=== PATIENT | male | born 1960 ===

== ENCOUNTER 2020-06-24 11:54 | Outpatient (REF) | payer MEDICARE, MEDICAID, SELFPAY ==
[2020-06-24 14:28] LABS: Anion Gap 12 (12-20); Blood Urea Nitrogen 14 mg/dL (9-16); Calcium 8.1 mg/dL (8.4-10.2); Carbon Dioxide 28 mmol/L (22-29); Chloride 103 mmol/L (96-108); Estimated Glomerular Filt Rate > 60; Glucose Random 81 mg/dL (60-115); Potassium 4.6 mmol/l (3.3-5.1); Sodium 138 mmol/L (135-145)
[2020-06-26 19:22] LABS: TS Negative Control Passed; TS Panel A 1; TS Panel B 0; TS Positive Control Passed; TSpotTB Negative (SeeBelow)
== END 2020-06-24 11:55 | disposition home or self-care (01) ==
LOC: HO.10HDL 11:54
PROVIDERS: Visit Provider Internal Medicine
DX: Z13.89 Encounter for screening for other disorder (principal)
CPT/HCPCS: 80048; 86481

== ENCOUNTER 2020-06-25 12:09 | Outpatient (REF) | payer MEDICARE, MEDICAID, SELFPAY ==
--- NOTE | 2020-06-25 15:07 | MHC.AU.P13 ---
Adult Audiological Evaluation Date of Visit: 06/25/20 Reason for Appointment: Audiological evaluation. Patient's sister provided case history and noted that Mr. Henao has not complained of hearing difficulties, but his family members have noticed he isn't hearing well. Does patient feel they have a hearing loss?: Yes If Yes, Which Ear?: Both Ears When Was Hearing Difficulty First Noticed?: Gradually over the past year Has hearing been tested previously?: No Ear History: Family History of Hearing Loss?: Yes Medical History: Medical History: Down Syndrome Medication List: Fluoxetine 20 mg 1x/day, Simvastatin 20 mg 1x/day, Clonazepam .5 mg 1x/day Otoscopy: Right Ear: Unremarkable Left Ear: Unremarkable Tympanometry: Right Ear: Normal Middle Ear System (Type A) Left Ear: Reduced Middle Ear Compliance (Type As) Hearing Evaluation: Transducer(s) Used: Insert Earphones, Bone Conduction Method: Conventional Audiometry Stimuli Used: Pure Tones Right Ear: Description of Hearing: Mild to moderately severe sensorineural hearing loss from 250-8000 Hz. Left Ear: Description of Hearing: Mild to moderately severe sensorineural hearing loss from 250-8000 Hz. Speech Recognition Threshold (SRT): Method Used: Monitored Live Voice Stimuli Used: Spondee Words Right Ear: 40 dBHL Left Ear: 40 dBHL Word Discrimination: Method: Recorded Lists Word Lists Used: PBK Right Ear: 96% at 80 dBHL Left Ear: 92% at 80 dBHL Recommendations: Recommendations: Audiological re-evaluation in one year. Trial with amplification is recommended. Medical clearance from a physician is required before fitting. Recommendations (Other): Spoke with Mr. Henao's sister on the phone during today's visit. Advised that Mr. Henao is a candidate for amplification. She expressed concerns for his ability to care for and learning to use the hearing aids. It was noted that Mr. Henao will likely be moving into a residential setting by the end of the year and will have more support there. We decided to hold off on pursuing hearing aids until Mr. Henao is settled in to his new living arrangements. That way, someone from the residential can come to the hearing aid fitting and be educated on proper care and use of the hearing aids with Mr. Henao. Earmold impressions were taken today and will be held until we are ready to proceed with hearing aids. My recommendation for hearing aids for Mr. Henao would be Joe Osiel ITE-R hearing aids bilaterally. These are rechargeable in-the-ear style hearing aids that would likely be easiest for Mr. Henao to use and care for. Hearing aids will be further discussed once Mr. Henao and his sister decide they are ready to proceed. Diagnosis: Primary Diagnosis: H90.3 Bilateral Sensorineural Hearing Loss Services Performed: Services Performed: Comprehensive Audiological Evaluation (CPT 48836) Tympanometry (CPT 22416) Signature: Provider: Annamarie Burger, CCC-A
--- NOTE | 2020-06-25 15:08 | MHC.AU.MED ---
Medical Clearance for Hearing Instrumentation Date: 06/25/20 Patient Name: Tristin Hneao Date of : 1960 Dear Torres Wheeler MD, We have seen your patient on 06/25/20 and have determined that they are a candidate for amplification (See accompanying report). Specifically, they would benefit from: Hearing aid use in both ears There is a statute that addresses Medical Evaluation Requirements prior to fitting a patient with a hearing aid. According to [place] statute 265 CMR:6.03(1), (a) General. Except as provided in 265 CMR 6.03(1)(b), a salesperson hearing aids shall not sell a hearing aid unless the prospective user has presented to the salesperson hearing aids a written statement signed by a licensed physician that states that the patient's hearing loss has been medically evaluated and the patient may be considered a candidate for a hearing aid. The medical evaluation must have taken place within the preceding six months. Please note: Due to the [place] Statute referenced above, we cannot accept a signature other than that of a licensed physician. GROUP INSURANCE SPECIAL AGENT and PA signatures cannot be accepted. I am in agreement with the above recommendation. There is no medical contraindication for hearing instrumentation. Physician Signature Date Physician Name (Printed)
== END 2020-06-25 12:10 | disposition home or self-care (01) ==
LOC: HO.SH 12:09
PROVIDERS: PCP Internal Medicine; Referring Provider Internal Medicine; Visit Provider Internal Medicine
DX: H90.3 Sensorineural hearing loss, bilateral (principal)
CPT/HCPCS: 92557; 92567

== ENCOUNTER 2020-09-29 13:01 | Outpatient (REF) | payer MEDICARE, MEDICAID, SELFPAY | END 2020-09-29 13:02 | disposition home or self-care (01) | LOC: HO.HAP 13:01 | PROVIDERS: Visit Provider Internal Medicine | DX: Z46.1 Encounter for fitting and adjustment of hearing aid (principal); H90.3 Sensorineural hearing loss, bilateral | CPT/HCPCS: V5011; V5020; V5160; V5260 ==

== ENCOUNTER 2020-10-13 09:35 | Outpatient (REF) | payer MEDICARE, MEDICAID, SELFPAY | END 2020-10-13 09:36 | disposition home or self-care (01) | LOC: HO.HAP 09:35 | PROVIDERS: Visit Provider Internal Medicine | DX: Z13.89 Encounter for screening for other disorder (principal) ==

== ENCOUNTER 2020-11-16 13:59 | Outpatient (REF) | payer MEDICARE, MEDICAID, SELFPAY | END 2020-11-16 14:00 | disposition home or self-care (01) | LOC: HO.HAP 13:59 | PROVIDERS: Visit Provider Internal Medicine | DX: Z13.89 Encounter for screening for other disorder (principal) ==

== ENCOUNTER 2020-12-01 09:09 | Outpatient (REF) | payer MEDICARE, MEDICAID, SELFPAY | END 2020-12-01 09:10 | disposition home or self-care (01) | LOC: HO.HAP 09:09 | PROVIDERS: Visit Provider Internal Medicine | DX: Z13.89 Encounter for screening for other disorder (principal) ==

== ENCOUNTER 2020-12-08 10:36 | Outpatient (REF) | payer MEDICARE, MEDICAID, SELFPAY ==
--- NOTE | 2020-12-08 10:51 | MHC.AU.P13 ---
Hearing Instrument Problem Date of Visit: 12/08/20 Right Ear: Chief Scientist: Joe Model: Osiel 1600 ITE-R Serial Number: [id number] Repair Warranty: 09/27/2023 Loss and Damage Warranty: 09/27/2023 Battery Size: Rechargeable Type of Wax Guard: HearClear Left Ear: Chief Scientist: Joe Model: Osiel 1600 ITE-R Serial Number: [id number] Repair Warranty: 09/27/2023 Loss and Damage Warranty: 09/27/2023 Battery Size: Rechargeable Type of Wax Guard: HearClear Follow-Up Summary: Right Joe dropped off - broken in half - sent to [facility], [place] for repair. Recommendations: Recommendations: Patient will be contacted when materials have arrived. Signature: Provider: TRIPP Arroyo
== END 2020-12-08 10:37 | disposition home or self-care (01) ==
LOC: HO.HAP 10:36
PROVIDERS: Visit Provider Internal Medicine
DX: Z13.89 Encounter for screening for other disorder (principal)

== ENCOUNTER 2020-12-14 15:42 | Outpatient (REF) | payer SELFPAY | END 2020-12-14 15:43 | disposition home or self-care (01) | LOC: HO.HAP 15:42 | PROVIDERS: Visit Provider Internal Medicine | DX: Z13.89 Encounter for screening for other disorder (principal) ==

== ENCOUNTER 2021-01-06 10:03 | Emergency (ER) | payer MEDICARE, MEDICAID, SELFPAY ==
--- NOTE | ~2021-01-06 | XR_ITS ---
EXAMINATION: RIGHT HAND AND WRIST CLINICAL INFORMATION: Fall with pain COMPARISON: None TECHNIQUE: 3 views of the right hand and wrist FINDINGS: There is a fracture seen base of the fifth metacarpal with approximately 1.5 cm of displacement of fracture fragments. There is small amount of soft tissue swelling present. There is some degenerative change involving the first carpal metacarpal joint with spurring. There appears be some deformity of the trapezium with narrowing of the triscaphe joint. There is negative ulnar variance present. XR/XR hand wrist RT IMPRESSION: Fracture base of the right fifth metacarpal. This may be acute or chronic and clinical correlation is suggested. Degenerative change of the first carpal metacarpal joint. Negative ulnar variance.
[2021-01-06 10:06] VITALS: BP 116/83; PULSE 77; RESP 16; TEMP 36.6; O2SAT 94; BMI 28.3
--- NOTE | 2021-01-06 10:12 | ED.FALL ---
HPI - Fall General Chief Complaint: Extremity Injury, Upper Stated Complaint: FALL OFF BUS STEP C/O R WRIST PAIN Time Seen by Provider: 01/06/21 10:10 Source: patient and EMS Mode of arrival: EMS Limitations: no limitations History of Present Illness HPI Narrative: 60-year-old female with a past medical history of Down syndrome here status post mechanical fall. Patient tells me he was going to his adult daycare when he missed a step getting off the bus falling catching himself with his right wrist. Denies hitting his head or loss of consciousness. Small abrasion to the wrist. No headache, neck pain, back pain. Related Data Home Medications Medication Instructions Recorded Confirmed clonazepam BEDTIME 01/06/21 fluoxetine 01/06/21 simvastatin DAILY 01/06/21 01/06/21 Allergies Allergy/AdvReac Type Severity Reaction Status Date / Time latex Allergy Unknown Verified 01/06/21 10:26 Review of Systems Review of Systems: Yes all other systems are reviewed and are negative Constitutional: Constitutional: Reports no additional constitutional complaints, Denies body ache(s), Denies chills, Denies fever(s), Denies headache(s) and Denies weakness Eyes: Eyes: Reports no additional eye complaints and Denies change in vision ENT: Reports system reviewed and no additional complaints, except as documented, Denies dizziness, Denies headache(s), Denies nasal congestion, Denies nasal discharge and Denies neck pain Cardiovascular: Cardiovascular: Reports no additional cardiovascular complaints, Denies chest pain, Denies leg edema and Denies dyspnea Respiratory: Respiratory: Reports no additional respiratory complaints, Denies cough and Denies dyspnea Gastrointestinal: Gastrointestinal: Reports no additional gastrointestinal complaints, Denies abdominal pain, Denies diarrhea, Denies nausea and Denies vomiting Genitourinary: Genitourinary: Denies urinary incontinence Musculoskeletal: Musculoskeletal: Reports no additional musculoskeletal complaints, Denies back pain, Reports arthralgias, Denies joint swelling, Denies limited range of motion, Denies neck pain, Denies numbness and Denies tingling Integumentary/Breasts: Skin/Breast: Reports system reviewed and no additional complaints, except as docu and Denies rash Neurologic: Reports system reviewed and no additional complaints, except as documented, Denies Abnormal speech present, Denies dizziness, Denies headache(s), Denies numbness, Denies tingling and Denies weakness PMF Past Medical History Attestation statement: The following information was validated with the patient. Source: old records reviewed and nursing notes reviewed Medical History (Updated 01/06/21 @ 11:01 by Ruddy Melchor NP) Down syndrome Social History Social History Alcohol intake: never Patient Tobacco Use Status: Never used Tobacco Use of substances other than those prescribed or required for medical reasons: No Advance Directives: Yes Advance Directives Information Provided: Yes Advance Directives on File: No Physical Exam Vital Signs: Vital Signs: Last Vital Signs Temp 97.8 F 01/06/21 10:06 Pulse 76 01/06/21 10:23 Resp 16 01/06/21 10:23 BP 126/82 01/06/21 10:23 Pulse Ox 98 01/06/21 10:23 Body Mass Index 28.3 Const: General: cooperative, healthy appearing, comfortable and no acute distress Orientation/consciousness: patient oriented x3 Limitations: no limitations HENMT: Head: Yes normal to inspection Ears: hearing grossly normal bilaterally General nose exam: Normal external nose present Face and sinus: Yes normal facial exam Mouth: Normal oral and palatal mucosa present Throat: Yes posterior oropharynx normal Eyes: General: appearance normal, both eyes and all related structures Pupils: Equal, round and reactive pupils present Neck: Neck: Yes normal visual inspection, Yes full ROM and Yes no lymphadenopathy Chest: Chest palpation & inspection: normal inspection of the chest Resp: Effort & Inspection: normal respiratory effort Auscultation: clear to auscultation bilaterally Cardio: Rate: regular rate Rhythm: regular rhythm Peripheral pulses: Peripheral pulses 2+ throughout GI: Inspection: Yes normal to inspection Palpation (GI): Soft to palpation and nontender Auscultation: normal bowel sounds Back/Spine/Pelvis: Thoracic/Lumbar Spine: thoracic and lumbar spine normal to inspection Skin: General skin exam: no rashes or lesions noted Neuro: General: patient oriented x3, no focal motor deficits, normal sensation to monofilament and Unable to assess gait Cranial nerves: Yes CN's II-XII intact bilaterally, Yes Equal, round and reactive pupils present, Yes Bilaterally intact EOM present, Yes Nystagmus not present, Yes Normal facial strength present and Yes Midline tongue present Cognition (Neuro): normal cognition Speech: No Abnormal speech present Gait exam (Neuro): Unable to assess gait Motor exam (neuro): 5 motor strength present throughout Sensory Exam: Normal double simultaneous stimulation for sensation Extrem: Other: Abrasion over the volar aspect of the right wrist. There is some mild tenderness over the distal wrist with no obvious swelling or deformity and full range of motion General: Yes normal to inspection Course Course Course Narrative: Abrasion and tenderness over the right wrist status post mechanical fall. No head injury or loss of consciousness. Normal neuro exam. Will need x-rays 1100-x-ray shows a right 5th metacarpal fracture. Placed and we placed an ulnar gutter splint and will follow up with Orthopedics. Staff was informed the longterm and they came to pick him up. Procedures Procedure Narrative Procedure Narrative: Ulnar gutter splint MDM - Fall Medical Records Attestation: I reviewed the patient's medical records. Lab Data Attestation: I reviewed the patient's lab results. Imaging Data right hand/wrist x-ray: Attestation: I personally reviewed and interpreted this imaging study as follows: Radiologist's impression: [address] [address]ALcc ReportSigned Patient: Michelle Henao#: [id number]: 1960cct:[id number]/Sex: 60 / MADM Date: 01/06/21Loc: EDAttending Dr: Ordering Physician: RUDDY MELCHOR NP Date of Service: 01/06/21 Procedure(s): XR hand wrist RT Accession Number(s): [id number] cc: RUDDY MELCHOR NP~ EXAMINATION: RIGHT HAND AND WRIST CLINICAL INFORMATION: Fall with pain COMPARISON: None TECHNIQUE: 3 views of the right hand and wrist FINDINGS: There is a fracture seen base of the fifth metacarpal with approximately 1.5 cm of displacement of fracture fragments. There is small amount of soft tissue swelling present. There is some degenerative change involving the first carpal metacarpal joint with spurring. There appears be some deformity of the trapezium with narrowing of the triscaphe joint. There is negative ulnar variance present. XR/XR hand wrist RT IMPRESSION: Fracture base of the right fifth metacarpal. This may be acute or chronic and clinical correlation is suggested. Degenerative change of the first carpal metacarpal joint. Negative ulnar variance. Discharge Plan Discharge Clinical Impression: Fracture, metacarpal Qualifiers: Encounter type: initial encounter Metacarpal bone: fifth Fracture type: closed Metacarpal location: base Fracture alignment: displaced Laterality: right Qualified Code(s): S62.316A - Displaced fracture of base of fifth metacarpal bone, right hand, initial encounter for closed fracture Patient Disposition: Home, Self-Care Instructions: Hand Fracture (ED) Additional Instructions: The splint stays on at all times. Do not let it get wet Do not use the hand, elevate and apply ice in a bag Call orthopedics for a follow-up appointment Prescriptions: No Action clonazepam BEDTIME RF: 0 fluoxetine RF: 0 simvastatin DAILY RF: 0 Referrals: Mj Khalil MD [Physician] - 2 days Interventions: ED Discharge Assessment Last Done: 01/06/21 12:43 Discharge Date/Time: 01/06/21 12:44
[2021-01-06 10:23] VITALS: BP 126/82; PULSE 76; RESP 16; O2SAT 98
--- NOTE | 2021-01-06 11:14 | MHC.CM.ED ---
Patient came to ER after a fall. Sustained a wrist fracture. T/W spoke with Mitchell at [facility]. Mitchell has an employee of the [facility] in the waiting room named Bola. Bola will transport patient home. Princess MULTANI aware. Continue to monitor for d/c needs.
== END 2021-01-06 12:44 | disposition home or self-care (01) ==
PROVIDERS: Emergency Provider Emergency Medicine
DX: S62.316A Displaced fracture of base of fifth metacarpal bone, right hand, initial encounter for closed fracture (principal); M79.641 Pain in right hand; W10.9XXA Fall (on) (from) unspecified stairs and steps, initial encounter; Y93.9 Activity, unspecified; Y92.811 Bus as the place of occurrence of the external cause; Y99.9 Unspecified external cause status; Z79.899 Other long term (current) drug therapy
CPT/HCPCS: 29125; 73110; 73130; 99284

== ENCOUNTER 2021-01-12 09:10 | Outpatient (REF) | payer MEDICARE, MEDICAID, SELFPAY ==
--- NOTE | ~2021-01-12 | XR_ITS ---
EXAMINATION: XR WRIST, RIGHT CLINICAL INFORMATION: Right wrist pain. COMPARISON: Right hand radiographs dated 01/06/2021 TECHNIQUE: PA, lateral, and oblique views of the right wrist. FINDINGS: Scaphoid rotation somewhat limits evaluation. No displaced fracture. Severe 1st carpometacarpal joint space narrowing with bony remodeling and marginal osteophytes. Mild triscaphe joint space narrowing. Remote fracture fragment adjacent to the base of the 5th metacarpal. 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 Rotation of the scaphoid limits evaluation. No definite displaced fracture. Remote, nonhealed fracture fragment at the base of the 5th metacarpal.
== END 2021-01-12 09:11 | disposition home or self-care (01) ==
LOC: HO.HOSX 09:10
PROVIDERS: Visit Provider Orthopaedic Surgery
DX: M18.11 Unilateral primary osteoarthritis of first carpometacarpal joint, right hand (principal); S62.316D Displaced fracture of base of fifth metacarpal bone, right hand, subsequent encounter for fracture with routine healing
CPT/HCPCS: 73110; 99202

== ENCOUNTER → 2021-03-30 11:09 | Outpatient (REF) | payer MEDICARE, MEDICAID, SELFPAY ==
[2021-03-30 12:23] LABS: MANUAL DIFF FLAG NO
[2021-03-30 12:28] LABS: Basophils Absolute Auto 0.1 X10*3/uL (0.0-0.2); Basophils Percent Auto 1.4 % (0-2); Eosinophils Percent Auto 0.6 % (0-4); Hematocrit 46.4 % (42-52); Hemoglobin 15.7 g/dl (14.0-18.0); Imm Gran Abs Auto 0.02 X10*3/uL (0.00-0.03); Imm Gran Pct Auto 0.4 % (0.0-0.4); Lymphocytes Absolute Auto 1.8 X10*3/uL (1.2-4.9); Lymphocytes Percent Auto 37.3 % (20-40); Mean Corpuscular HGB Conc 33.8 g/dl (31.0-36.0); Mean Corpuscular Hemoglobin 32.8 pg (27.0-33.0); Mean Corpuscular Volume 96.9 fL (80-98); Mean Platelet Volume 10.4 fL (9.4-12.4); Monocytes Absolute Auto 0.5 X10*3/uL (0.1-1.2); Monocytes Percent Auto 9.9 % (2-11); Neutrophils Absolute Auto 2.5 X10*3/uL (2.0-8.3); Neutrophils Percent Auto 50.4 % (45-73); Platelet Count 214 X10*3/uL (160-400); Red Blood Count 4.79 X10*6/uL (4.60-5.80); Red Cell Distribution Width 13.9 % (11.0-16.0); White Blood Count 4.9 X10*3/uL (4.8-10.8)
[2021-03-30 12:48] LABS: Glucose Urine UA NEG (NEG); Leukocyte Esterase Urine NEG (NEG); Nitrite Urine NEG (NEG); Specific Gravity - Urine 1.015 (1.005-1.025); Urine Blood NEG (NEG); Urine Ketones NEG (NEG); Urine Protein NEG (NEG-TRACE)
[2021-03-30 12:50] LABS: Appearance Urine CLEAR; Color Urine YELLOW
[2021-03-30 13:49] LABS: Alanine Aminotransferase 21 U/L (0-40); Albumin Level 3.6 g/dL (3.5-5.0); Alkaline Phosphatase 105 U/L (39-117); Anion Gap 13 (12-20); Aspartate Amino Transferase 22 U/L (5-37); Bilirubin Total 0.6 mg/dL (0.0-1.0); Blood Urea Nitrogen 16 mg/dL (9-16); Calcium 8.7 mg/dL (8.4-10.2); Carbon Dioxide 26 mmol/L (22-29); Chloride 105 mmol/L (96-108); Cholesterol 179 mg/dL; Estimated Glomerular Filt Rate > 60; Glucose Fasting 102 mg/dL (60-99); HDL Cholesterol 48 mg/dL; LDL Cholesterol Calculated 117 mg/dl; Potassium 4.4 mmol/L (3.3-5.1); Sodium 140 mmol/L (135-145); Total Protein 7.3 g/dL (6.5-8.0); Triglycerides 74 mg/dL
[2021-03-30 14:14] LABS: Prostate Specific Antigen 0.44 ng/mL (<0.05-4.0); Thyroid Stimulating Hormone 1.45 uIU/mL (0.32-4.0)
== END ==
LOC: HO.SL 11:09
PROVIDERS: PCP Internal Medicine; Visit Provider Internal Medicine
DX: E78.00 Pure hypercholesterolemia, unspecified (principal); R35.1 Nocturia; H91.90 Unspecified hearing loss, unspecified ear; Q90.9 Down syndrome, unspecified; R63.5 Abnormal weight gain; Z12.5 Encounter for screening for malignant neoplasm of prostate
CPT/HCPCS: 36415; 80053; 80061; 81003; 84153; 84443; 85025; 87086

== ENCOUNTER → 2021-06-01 09:57 | Outpatient (REF) | payer MEDICARE, MEDICAID, SELFPAY | LOC: HO.SL 09:57 | PROVIDERS: PCP Internal Medicine; Visit Provider Internal Medicine | DX: G47.33 Obstructive sleep apnea (adult) (pediatric) (principal); G47.419 Narcolepsy without cataplexy; R53.83 Other fatigue | CPT/HCPCS: 95806 ==

== ENCOUNTER → 2021-06-20 15:31 | Outpatient (BNVA) | payer MEDICARE, MEDICAID, SELFPAY | PROVIDERS: PCP Internal Medicine; Visit Provider Internal Medicine | DX: Q90.9 Down syndrome, unspecified (principal); G47.33 Obstructive sleep apnea (adult) (pediatric); E66.9 Obesity, unspecified; Z79.899 Other long term (current) drug therapy | CPT/HCPCS: 99202 ==

== ENCOUNTER 2021-06-29 11:31 | Outpatient (REF) | payer MEDICARE, MEDICAID, SELFPAY ==
--- NOTE | 2021-06-29 11:45 | MHC.AU.P13 ---
Hearing Instrument Problem Date of Visit: 06/29/21 Right Ear: Varnish Filterer: Wrightspeed Model: Osiel 1600 ITE-R Serial Number: [id number] Repair Warranty: 09/27/2023 Loss and Damage Warranty: 09/27/2023 Battery Size: Rechargeable Type of Wax Guard: HearClear Dispensed By: [facility] Date of Fittin09/29/2020 Left Ear: Varnish Filterer: Wrightspeed Model: Osiel 1600 ITE-R Serial Number: [id number] Repair Warranty: 09/27/2023 Loss and Damage Warranty: 09/27/2023 Battery Size: Rechargeable Type of Wax Guard: HearClear Dispensed By: [facility] Date of Fittin09/29/2020 Follow-Up Summary: Sales Attendant brought in hearing aids - not working. Hearing aids cleaned and wax guards replaced - now both amplifying clearly. Sales Attendant in process of schedule audiological re-evaluation. Recommendations: Recommendations: Hearing instrument follow-up or maintenance as needed. Diagnosis Code(s): Primary Diagnosis: H90.3 Bilateral Sensorineural Hearing Loss Signature: Provider:
== END 2021-06-29 11:32 | disposition home or self-care (01) ==
LOC: HO.HAP 11:31
PROVIDERS: Visit Provider Internal Medicine
DX: Z13.89 Encounter for screening for other disorder (principal)

== ENCOUNTER 2021-07-20 10:32 | Outpatient (REF) | payer MEDICARE, MEDICAID, SELFPAY ==
--- NOTE | 2021-07-20 16:26 | MHC.AU.AHA ---
Adult Audiological Evaluation Date of Visit: 07/20/21 Reason for Appointment: Audiological re-evaluation to monitor the status of Mr. Henao's hearing loss. He has a known bilateral, sensorineural hearing loss and uses hearing aids binaurally. He and his caregiver report that things have been going well with the hearing aids. Mr. Henao has not noticed any significant changes to his hearing. They deny any changes to his medical history. Previous Hearing Test Results: [facility] [place], 06/25/2020 - Mild to moderately-severe sensorineural hearing loss bilaterally Ear History: Family History of Hearing Loss?: Yes Medical History: Medical History: Down Syndrome Medical History: High cholesterol, bilateral foot deformity, bilateral cataracts, generalized anxiety, depression, arthritis Allergies: Latex Medication List: Simvastatin 20 mg daily, Fluoxetine 40 mg daily, acetaminophen 650 mg PRN, bacitracin PRN, loratadine 10 mg daily Hearing Instrument History- Right Ear: Lambskin Trimmer: Koibanx Model: The News Lens ITE-R Serial Number: [id number] Battery Size: Rechargeable Repair Warranty: 09/27/2023 Loss and Damage Warranty: 09/27/2023 Dispensed By: [facility] Date of Fittin09/29/2020 Hearing Instrument History- Left Ear: Lambskin Trimmer: Koibanx Model: Zinwave 1600 ITE-R Serial Number: [id number] Battery Size: Rechargeable Warranty: 09/27/2023 Loss and Damage Warranty: 09/27/2023 Dispensed By: [facility] Date of Fittin09/29/2020 Otoscopy: Right Ear: Unremarkable Left Ear: Unremarkable Tympanometry: Tympanometry performed due to: Right Ear: Could Not Obtain Seal Left Ear: Could Not Obtain Seal Hearing Evaluation: Transducer(s) Used: Insert Earphones, Bone Conduction Method: Conventional Audiometry Stimuli Used: Pure Tones Right Ear: Description of Hearing: Flat moderate sensorineural hearing loss from 250-8000 Hz. Left Ear: Description of Hearing: Flat moderate sensorineural hearing loss from 250-8000 Hz. Speech Recognition Threshold (SRT): Method Used: Monitored Live Voice Stimuli Used: Spondee Words Right Ear: 45 dBHL Left Ear: 45 dBHL Word Discrimination: Method: Recorded Lists Word Lists Used: PBK Right Ear: 88% at 85 dBHL Left Ear: 92% at 85 dBHL Comparison: Compared to most recent evaluation: Slight 10 dB decrease in hearing at 250 and 1000 Hz in the right ear and 500 Hz in the left ear. 10 dB improvement at 8000 Hz in the right ear. Recommendations: Audiological re-evaluation in one year. Hearing aid maintenance performed today. Hearing aid(s) reprogrammed with updated test results. Cracked the vent of the left aid while cleaning today. Sent the left aid out for an in-warranty repair. Will contact for pick-up when it arrives. Diagnosis: Primary Diagnosis: H90.3 Bilateral Sensorineural Hearing Loss Services Performed: Comprehensive Audiological Evaluation (CPT 44716) Signature: Provider: Annamarie Burger, CCC-A
== END 2021-07-20 10:33 | disposition home or self-care (01) ==
LOC: HO.SH 10:32
PROVIDERS: Visit Provider Internal Medicine
DX: Z46.1 Encounter for fitting and adjustment of hearing aid (principal); H90.3 Sensorineural hearing loss, bilateral; E78.00 Pure hypercholesterolemia, unspecified; Q90.9 Down syndrome, unspecified; M21.962 Unspecified acquired deformity of left lower leg; M21.961 Unspecified acquired deformity of right lower leg; H26.9 Unspecified cataract; F41.8 Other specified anxiety disorders
CPT/HCPCS: 92557

== ENCOUNTER 2021-08-03 11:27 | Outpatient (REF) | payer MEDICARE, MEDICAID, SELFPAY | END 2021-08-03 11:28 | disposition home or self-care (01) | LOC: HO.HAP 11:27 | PROVIDERS: Visit Provider Internal Medicine | DX: Z13.89 Encounter for screening for other disorder (principal) ==

== ENCOUNTER 2021-09-11 22:44 | Inpatient (IN) | payer MEDICARE, MEDICAID, SELFPAY ==
--- NOTE | ~2021-09-11 | XR_ITS ---
EXAMINATION: XR CHEST CLINICAL INFORMATION: Leukocytosis COMPARISON: Previous chest x-ray most recent 09/22/2019 TECHNIQUE: Frontal view of the chest was obtained. FINDINGS: The cardiac and mediastinal contours are normal. The lung volumes are low. There are increased interstitial markings, left greater than right. No evidence of a lobar pneumonia is seen. There is no pleural effusion or pneumothorax. There are degenerative changes of the thoracic spine and curvature to the right. XR/XR chest 1V IMPRESSION: Low lung volumes. Increased interstitial markings, left greater than right. Differential would include mild interstitial pulmonary edema and atypical interstitial pneumonia.
--- NOTE | ~2021-09-11 | XR_ITS ---
EXAMINATION: XR PELVIS WITH HIP, LEFT XR FEMUR, LEFT CLINICAL INFORMATION: Fall with pain COMPARISON: None TECHNIQUE: Frontal view of the pelvis with 2 views of the left hip. Additional view of the left femur. FINDINGS: There is a comminuted intertrochanteric left femur fracture. Varus angulation with impaction noted. Displaced lesser trochanteric fragment. The femoral head remains seated within its acetabulum. The right hip is well aligned. The pelvic rim is intact. Phleboliths overlie the pelvis. The remainder of the left femur is intact with alignment at the knee grossly maintained. XR/XR femur LT 1V IMPRESSION: Intertrochanteric left femur fracture with varus angulation and mild impaction.
--- NOTE | ~2021-09-11 | XR_ITS ---
EXAMINATION: XR PELVIS WITH HIP, LEFT XR FEMUR, LEFT CLINICAL INFORMATION: Fall with pain COMPARISON: None TECHNIQUE: Frontal view of the pelvis with 2 views of the left hip. Additional view of the left femur. FINDINGS: There is a comminuted intertrochanteric left femur fracture. Varus angulation with impaction noted. Displaced lesser trochanteric fragment. The femoral head remains seated within its acetabulum. The right hip is well aligned. The pelvic rim is intact. Phleboliths overlie the pelvis. The remainder of the left femur is intact with alignment at the knee grossly maintained. XR/XR hip LT w PEL1V IMPRESSION: Intertrochanteric left femur fracture with varus angulation and mild impaction.
--- NOTE | ~2021-09-11 | FL_ITS ---
EXAMINATION: XR FL WITH IMAGES CLINICAL INFORMATION: Left femoral nail. COMPARISON: Left femur radiographs 09/02/2021. TECHNIQUE: Fluoroscopy performed by Dr. Mj Khalil. Fluoroscopy Time: 0.9 minutes. DAP: 0.528 mGycm2. Images: 4. FINDINGS: Imaging demonstrates placement of a intramedullary safia and femoral neck screw on the left. See operative report for details. FL/FL guidance in OR IMPRESSION: Fluoroscopy and spot films provided.
--- NOTE | ~2021-09-11 | CT_ITS ---
EXAMINATION: NONCONTRAST HEAD CT NONCONTRAST MAXILLOFACIAL CT NONCONTRAST CERVICAL SPINE CT INDICATION INFORMATION: Fall with head injury. COMPARISON: None TECHNIQUE: Separate noncontrast CT examinations of the head, maxillofacial bones, and cervical spine were performed. Coronal and sagittal images were created for each examination at the technologist workstation. This CT examination was performed using dose optimization techniques as appropriate, variously including the following: *Automated exposure control *Adjustment of mA and/or kV according to patient size (this includes techniques or standardized protocols for targeted exams where dose is matched to indication/reason for exam; i.e. extremities or head) *Use of iterative reconstruction technique DLP: 1603 mGy-cm FINDINGS: Head: There is no evidence of acute intracranial hemorrhage or territorial infarction. No abnormal mass effect or midline shift is seen. Manzano to white matter differentiation is well preserved. No extra-axial fluid collections are identified. No hydrocephalus. No significant volume loss. Extensive symmetric calcifications of the basal ganglia and deep white matter. Cerebellar calcifications. No acute soft tissue abnormality. No calvarial fracture. The mastoid air cells are well aerated. Maxillofacial: No acute maxillofacial fractures are seen. The frontal, maxillary, ethmoid, and sphenoid sinuses are well aerated. The uncinate process is normal bilaterally. The infundibula and middle meati are patent. The nasal septum is midline. Chronic appearing degeneration of both temporomandibular joints with probable chronic erosion of the mandibular heads. The orbits demonstrate a normal appearance bilaterally. The globes are intact, and there are no suspicious findings to suggest retrobulbar hemorrhage. Cervical spine: Accentuated lordosis of the upper cervical spine. There is otherwise anatomic alignment of the vertebral bodies and posterior elements. The atlantoaxial and atlantooccipital articulations are intact. Vertebral body heights are maintained. There is multilevel intervertebral disc space narrowing with endplate osteophyte formation and facet arthropathy. Fusion of multiple vertebral bodies and facets throughout the cervical spine. Prominent sclerotic appearance of the endplates at C7-T1. No evidence of acute fracture. No prevertebral soft tissue swelling. Visualized portions of the lung apices are unremarkable. The thyroid gland is unremarkable. CT/CT cervical spine wo con IMPRESSION: 1. No acute intracranial finding. 2. No acute maxillofacial fracture. 3. No fracture or malalignment of the cervical spine. Advanced chronic changes with diffuse bony fusion.
--- NOTE | ~2021-09-11 | XR_ITS ---
EXAMINATION: XR CHEST CLINICAL INFORMATION: Aspiration. COMPARISON: Chest 09/12/2021 TECHNIQUE: Frontal view of the chest was obtained. FINDINGS: The lungs are well-expanded with increased bilateral parahilar vascular markings. Heart size is normal. No acute pneumonic consolidation or pleural effusion. No gross bony abnormality. XR/XR chest 1V IMPRESSION: Mild prominence bilateral parahilar vascular markings, ? early mild congestion or vascular overload. No acute pneumonic consolidation seen.
[2021-09-11 22:47] VITALS: BP 115/79; BP 118/76; PULSE 87; PULSE 90; RESP 16; TEMP 37.1; O2SAT 100; O2SAT 99; BMI 29.2
--- NOTE | 2021-09-11 22:53 | ED_ITS ---
HPI - Fall General Chief Complaint: Fall Stated Complaint: Mechanical Fall Time Seen by Provider: 09/11/21 22:53 Source: patient Mode of arrival: ambulatory Limitations: no limitations History of Present Illness HPI Narrative: Patient is a 61 year old male presenting to the emergency department today with an employee from his housing, after a mechanical fall. Patient's employee at bedside states that the patient got up, in the dark, to shut off his alarm clock when he tripped and fell striking his head on the ground. Staff member states the patient did not have any loss of consciousness. Staff member states the deformity to his bilateral feet, is chronic for the patient. Staff member states the patient is complaining of left leg pain. Patient denies any dizziness, lightheadedness, abdominal pain, nausea, vomiting, fever, chills, blurry vision, double vision, loss of vision, chest pain, difficulty breathing, shortness of breath, back pain, night sweats, pain with urination, increased urinary frequency, increased urinary urgency, blood in his urine or stool, syncope or a near syncopal episode, recent trauma or falls, bowel incontinence, bladder incontinence, bowel retention, bladder retention, or any other complaints at this time. MD complaint: fall Onset (ago): hour(s) Fall from: standing Fall witnessed: yes, by living facility staff Place fall occurred: home Loss of consciousness: none Prolonged down time: no Symptoms prior to fall: none Context: tripped/slipped Related Data Home Medications Medication Instructions Recorded Confirmed clonazepam BEDTIME 01/06/21 06/20/21 fluoxetine 01/06/21 06/20/21 simvastatin DAILY 01/06/21 06/20/21 Allergies Allergy/AdvReac Type Severity Reaction Status Date / Time latex Allergy Unknown Verified 06/20/21 15:42 Review of Systems Verdana 4l Constitutional: Verdana 4d Verdana 4d Constitutional: Verdana 4d Reports no additional constitutional complaints, Denies chills, Denies fever(s) and Denies night sweats Verdana 4l Eyes: Verdana 4d Verdana 4d Eyes: Verdana 4d Reports no additional eye complaints, Denies blurry vision, Denies change in vision, Denies diplopia, Denies eye discharge, Denies loss of vision and Denies eye pain Verdana 4l ENT: Verdana 4d Denies dizziness Verdana 4l Cardiovascular: Verdana 4d Verdana 4d Cardiovascular: Verdana 4d Reports no additional cardiovascular complaints, Denies chest pain, Denies lightheadedness, Denies Loss of Consciousness and Denies dyspnea Verdana 4l Respiratory: Verdana 4d Verdana 4d Respiratory: Verdana 4d Reports no additional respiratory complaints and Denies dyspnea Verdana 4l Gastrointestinal: Verdana 4d Verdana 4d Gastrointestinal: Verdana 4d Reports no additional gastrointestinal complaints, Denies abdominal pain, Denies melena, Denies hematochezia, Denies change in bowel habits and Denies change in stool character Verdana 4l Genitourinary: Verdana 4d Verdana 4d Genitourinary: Verdana 4d Reports no additional male genitourinary complaints, Denies hematuria, Denies oliguria, Denies difficulty urinating, Denies dysuria, Denies urinary frequency, Denies urinary hesitancy, Denies urinary incontinenceincontinence and Denies urinary urgency Musculoskeletal: Musculoskeletal: Reports no additional musculoskeletal complaints, Denies numbness and Denies tingling Comments: Left leg pain Integumentary/Breasts: Comments: Small laceration to the left eyebrow Neurologic: Denies dizziness, Denies loss of vision, Denies numbness and Denies tingling Psychiatric: Psychiatric: Reports no additional psychiatric complaints Endocrine: Endocrine: Reports no additional endocrine complaints Hematologic/Lymphatic: Hematologic/Lymphatic: Reports no additional hematologic/lymphatic complaints Allergic/Immunologic: Allergic/Immunologic: Reports no additional allergic/immunologic complaints PMFSH Past Medical History Attestation statement: The following information was validated with the patient. 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 Physical Exam Verdana 4l Vital Signs: Verdana 4d Verdana 4d Vital Signs: Verdana 4d Verdana 4Bd Last Vital Signs Verdana 4d Application Packaging Specialist New 4d Application Packaging Specialist New 4d Temp 98.7 F 09/11/21 22:47 Application Packaging Specialist New 4d Pulse 87 09/11/21 22:47 Application Packaging Specialist New 4d Resp 16 09/11/21 22:47 BP 118/76 09/11/21 22:47 Pulse Ox 100 09/11/21 22:47 BMI result Body Mass Index 29.2 Const: General: cooperative, no acute distress, alert and awake Nutritional Appearance: well nourished Orientation/consciousness: patient oriented x3 Limitations: no limitations HENMT: Head: Yes normal to inspection and Yes atraumatic Ears: hearing grossly normal bilaterally and external ears normal General nose exam: Normal external nose present, no nasal discharge noted and no epistaxis Face and sinus: Yes normal facial exam, No abrasion and No laceration Mouth: Normal oral and palatal mucosa present, no drooling and no muffled voice Eyes: General: appearance normal, both eyes and all related structures Periorbital: periorbital findings normal Eyelids: Yes eyelids normal Conjunctivae: conjunctivae normal Pupils: Equal, round and reactive pupils present EOM: EOMs intact bilaterally Neck: Neck: Yes normal visual inspection, Yes full ROM and Yes no lymphadenopathy Chest: Chest palpation & inspection: normal inspection of the chest Resp: Effort & Inspection: normal respiratory effort and able to speak in complete sentences GI: Inspection: Yes normal to inspection Skin: Other: Small laceration to left eyebrow, no active bleeding Neuro: General: patient oriented x3 and moves all extremities Cranial nerves: Yes Equal, round and reactive pupils present Cognition (Neuro): normal cognition Motor exam (neuro): 5/5 motor strength present throughout Sensory Exam: Normal double simultaneous stimulation for sensation Coordination: [id number] test normal Extrem: Other: Bilateral deformity of the feet, chronic for the patient General: Yes normal to inspection, Yes full ROM and Yes capillary refill normal Psych: Appearance: grossly normal Mental Status: mental status grossly normal Affect: normal affect Attitude: cooperative Thought process: Normal thought process present Thought content: Normal thought content present Insight: Good insight present (Psych) MDM - Fall MDM Narrative Medical decision making narrative: Patient is a 61 year old male presenting to the emergency department today after mechanical fall. Patient's physical exam showed a small laceration to his left eyebrow, and chronic deformities of bilateral feet. Patient's head, neck, and maxillofacial CTs were all negative for any acute process. Patient's left femur x-ray showed a significant fracture of the femur. I explained my physical exam findings as well as all test results to the patient and the patient's caregiver. I answered all questions asked by the patient and the patient's caregiver. Patient received p.o. Tylenol which he stated helped his symptoms significantly. Patient's left eyebrow laceration was repaired, via Dermabond, without incident. I spoke to Dr. Mcdaniels, the orthopedist healthcare consultant, who stated that they would likely be able to admit the patient here, however, she requested the patient be kept comfortable here in the ED until the morning when she can round with Dr. Khalil. Patient is to be kept NPO tonight. Patient and the patient's caregiver verbalized agreement and understanding with this treatment plan and admission. Differential Diagnosis Differential diagnosis: Likely fracture, compression fracture and concussion without loss of consciousness Medical Records Attestation: I reviewed the patient's medical records. Imaging Data CT scan - head: Attestation: I personally reviewed and interpreted this imaging study as follows: Radiologist's impression: Negative for any acute intracranial finding CT C-spine: Attestation: I personally reviewed and interpreted this imaging study as follows: Radiologist's impression: Negative for any acute fracture CT maxillofacial: Attestation: I personally reviewed and interpreted this imaging study as follows: Radiologist's impression: Negative for any acute fracture Left femur x-ray: Attestation: I personally reviewed and interpreted this imaging study as follows: Radiologist's impression: Intertrochanteric left femur fracture with varus angulation and mild impaction.? Discharge Plan Discharge Clinical Impression: Closed femur fracture, Fall Patient Disposition: Still a Patient Prescriptions: No Action clonazepam BEDTIME 0RF fluoxetine 0RF simvastatin DAILY 0RF Print Language: [place] Verdean
[2021-09-12] VITALS (12 sets, daily range): BP systolic 77–135; BP diastolic 48–79; PULSE 81–110; RESP 12–16; TEMP 36.9–37.1; O2SAT 93–100
--- NOTE | 2021-09-12 | ECG_ITS ---
Test Reason : FEMUR FRACTURES Blood Pressure : / mmHG Vent. Rate : 095 BPM Atrial Rate : 095 BPM P-R Int : 156 ms QRS Dur : 128 ms QT Int : 402 ms P-R-T Axes : 027 -25 020 degrees QTc Int : 505 ms Normal sinus rhythm Right bundle branch block Minimal voltage criteria for LVH, may be normal variant ( R in aVL ) Abnormal ECG No previous ECGs available Referred By: Jaspreet Monteiro Electronically Signed By:DANIEL PETE
[2021-09-12] MEDS: Acetaminophen 325 MG TABLET 1000 MG PO (01:06)
[2021-09-12 02:16] LABS: MANUAL DIFF FLAG NO
[2021-09-12] MEDS: ondansetron HCL 4 MG/2 ML VIAL IVPUSH (02:16)
[2021-09-12] MEDS: Morphine Sulfate 4 MG/ML CARTRIDGE IVPUSH ×3 (02:16→07:58)
[2021-09-12 02:19] LABS: Basophils Absolute Auto 0.1 X10*3/uL (0.0-0.2); Basophils Percent Auto 0.4 % (0-2); Hematocrit 43.5 % (42.0-52.0); Imm Gran Abs Auto 0.06 X10*3/uL (0.00-0.03); Imm Gran Pct Auto 0.4 % (0.0-0.4); Lymphocytes Absolute Auto 1.4 X10*3/uL (1.2-4.9); Lymphocytes Percent Auto 9.5 % (20-40); Mean Corpuscular HGB Conc 34.5 g/dl (31.0-36.0); Mean Corpuscular Volume 95.8 fL (80.0-98.0); Mean Platelet Volume 10.4 fL (9.4-12.4); Monocytes Absolute Auto 0.7 X10*3/uL (0.1-1.2); Monocytes Percent Auto 4.6 % (2-11); Neutrophils Absolute Auto 12.1 x10*3/uL (2.0-8.3); Neutrophils Percent Auto 85.1 % (45-73); Platelet Count 192 X10*3/uL (160-400); Red Blood Count 4.54 X10*6/uL (4.60-5.80); Red Cell Distribution Width 14.1 % (11.0-16.0); White Blood Count 14.2 X10*3/uL (4.8-10.8)
[2021-09-12 02:28] LABS: INTERNATIONAL NORM RATIO 1.1 (0.9-1.1); Prothrombin Time 12.5 SEC (9.9-13.0)
[2021-09-12 02:30] LABS: Partial Thromboplastin Time 32.4 SEC (24.1-38.0)
[2021-09-12 02:35] LABS: Alanine Aminotransferase 23 U/L (0-40); Albumin Level 3.4 g/dL (3.5-5.0); Alkaline Phosphatase 88 U/L (39-117); Anion Gap 17 (12-20); Aspartate Amino Transferase 27 U/L (5-37); Bilirubin Total 0.8 mg/dL (0.0-1.0); Blood Urea Nitrogen 20 mg/dL (9-16); Calcium 8.4 mg/dL (8.4-10.2); Carbon Dioxide 22 mmol/L (22-29); Chloride 105 mmol/L (96-108); Creatinine Clr Calc Pharmacy 66.9; Estimated Glomerular Filt Rate > 60; Glucose Fasting 143 mg/dL (60-99); Potassium 3.6 mmol/L (3.3-5.1); Sodium 140 mmol/L (135-145); Total Protein 6.6 g/dL (6.5-8.0)
[2021-09-12 02:38] LABS: COVID-19 Test Negative (Negative); IDNOW Serial# 9DD0AD1C
--- NOTE | 2021-09-12 03:25 | PC.NURSE ---
pt exchange trouble shooter to hospital attire, Iv placed, labs drawn and sent. Covid test completed. Medicated pt Oct. Pugh placed. CMS and pedal pulse to left lower extremity by doppler. Area maryuri for future assessments.
[2021-09-12 03:31] LABS: Appearance Urine CLEAR; Color Urine YELLOW; Glucose Urine UA NEG (NEG); Leukocyte Esterase Urine NEG (NEG); Nitrite Urine NEG (NEG); Specific Gravity - Urine >= 1.030 (1.005-1.025); Urine Blood 3+ (NEG); Urine Ketones 40 MG/DL (NEG); Urine Protein 1+ MG/DL (NEG-TRACE)
[2021-09-12 03:43] LABS: Bacteria Urine 2+ /LPF; Mucus Urine 2+ /LPF; RBC Urine 30-49 /HPF (0); Squamous Epithelial Cell Urine 1+ /LPF
[2021-09-12] MEDS: Dextrose 5 % and Lactated Ring 1,000 ML 125 ML IVCONT (07:59)
--- NOTE | 2021-09-12 08:26 | PHA.MEDREC ---
Pharmacy Consult ? Medication Reconciliation Pharmacy has completed the medication reconciliation. Spoke to patients skilled nursing to confirm medications. Patient is no longer on fluoxetine or clonazepam. Enriqueta Faith, PharmD
--- NOTE | 2021-09-12 09:32 | P.HPOP_ITS ---
History of Present Illness History of Present Illness Date of Service: 09/12/21 Chief complaint: LEFT HIP FX Narrative: Tristin Henao is a 61 year old male who presented to the emergency department after sustaining fall. He lives in a custodial. Patient has Down syndrome and mental capacity is about the level of the 2nd to 3rd grader. His brother Elio is present in the emergency department. He states that to his understanding the patient was getting out of bed to shut off his alarm when he fell. He had immediate pain in the left side which made it difficult for him to get up and ambulate therefore EMS was called and he was transferred to the emergency department. 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 On examination in the emergency department x-rays showed a left intertrochanteric fracture of the femur. Orthopedics was called and the patient was admitted to the service for further surgical planning. 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 Meds Allergies Allergy/AdvReac Type Severity Reaction Status Date / Time latex Allergy Unknown Verified 06/20/21 15:42 Active Medications: Current Medications Acetaminophen (Acetaminophen 325 Mg Tablet) 650 mg PO Q6H PRN PRN Reason: Pain, Mild (Pain Scale 1-3) Docusate Sodium (Docusate Sodium 100 Mg Capsule) 100 mg PO BID SALLY Dextrose/Lactated Ringer's (D5lr) 1,000 mls @ 125 mls/hr IVCONT .Q8H SALLY Last Admin: 09/12/21 07:59 Dose: 125 mls/hr Documented by: Ondansetron HCl (Ondansetron Hcl 4 Mg/2 Ml Vial) 4 mg IVPUSH Q8H PRN PRN Reason: Nausea and Vomiting Oxycodone HCl (Oxycodone Hcl Immed Release 5 Mg Tablet) 5 mg PO Q4H PRN PRN Reason: Pain, Moderate (Pain Scale 4-6 Pharmacy Consult (Consult Rx Perform Med Rec) 1 each MISCELLANE ONCE PRN PRN Reason: Consult order Sodium Chloride (0.9 % Sodium Chloride Flush 3 Ml Syringe) 3 ml IVFLUSH QSHIFT [facility] Home Medications Medication Instructions Recorded Confirmed Last Taken Type acetaminophen 325 650 mg PO Q6H 09/12/21 09/12/21 Unknown History mg tablet PRN loratadine 10 mg 1 tab PO DAILY 09/12/21 09/12/21 09/11/21 History tablet simvastatin 20 mg 1 tab PO BEDTIME 09/12/21 09/12/21 09/11/21 History tablet Physical Exam Verdana 4l Vital Signs: Verdana 4d Verdana 4d Vital Signs: Verdana 4d Verdana 4Bd Last Vital Signs Verdana 4d Service Counter Cashier New 4d Service Counter Cashier New 4d Temp 98.7 F 09/12/21 05:35 Service Counter Cashier New 4d Pulse 91 09/12/21 09:06 Service Counter Cashier New 4d Resp 14 09/12/21 09:06 BP 77/51 L 09/12/21 09:06 Pulse Ox 95 09/12/21 09:06 BMI result Body Mass Index 29.2 Const: General: cooperative, healthy appearing, comfortable, no acute distress, well developed and alert Orientation/consciousness: patient oriented x3 HENMT: Head: Yes normal to inspection, Yes normocephalic and Yes atraumatic Eyes: General: appearance normal, both eyes and all related structures Neck: Neck: Yes normal visual inspection and Yes no lymphadenopathy Resp: Effort & Inspection: normal respiratory effort and able to speak in complete sentences Cardio: Rate: regular rate Peripheral pulses: Peripheral pulses 2+ throughout GI: Inspection: Yes normal to inspection Palpation (GI): Soft to palpation Skin: General skin exam: no rashes or lesions noted Neuro: General: patient oriented x3 Extrem: Other: Left leg short and ER. Pain with Log roll, Unable to SLR. Bilat fee at clubbed with deformity along the ankle joint. NVI. Psych: Appearance: grossly normal Mental Status: mental status grossly normal Results Labs Result Diagrams: 09/12/21 02:09 09/12/21 02:09 Labs: Abnormal lab results 09/12/21 09/12/2122 Range/Units 02:09 02:09 03:25 WBC 14.2 H (4.8-10.8) X10*3/uL RBC 4.54 L (4.60-5.80) X10*6/uL Neut % (Auto) 85.1 H (45-73) % Lymph % (Auto) 9.5 L (20-40) % Abs Immat Gran (auto) 0.06 H (0.00-0.03) X10*3/uL Absolute Neuts (auto) 12.1 H (2.0-8.3) x10*3/uL BUN 20 H (9-16) mg/dL Fasting Glucose 143 H D (60-99) mg/dL Albumin 3.4 L (3.5-5.0) g/dL Ur Specific [place] >= 1.030 H (1.005-1.025) Urine Protein 1+ H (NEG-TRACE) MG/DL Urine Blood 3+ H (NEG) Urine RBC 30-49 H (0) /HPF H & H 09/12/21 Range/Units 02:09 Hgb 15.0 (14.0-18.0) g/dl Hct 43.5 (42.0-52.0) % Coagulation 09/12/21 Range/Units 02:09 INR 1.1 (0.9-1.1) All other labs normal. Assessment and Plan (1) Closed femur fracture: Status: Acute Plan I discussed the case with Dr Khalil and explained the extent of the injury to the patient and his brother, Elio and options available which include surgical intervention. I explained the procedure in detail along with the length of recovery and rehab course. I explained the risk, benefits and alternatives. Risk including, but not limited to infection, blood clots, bleeding, non union or malunion and nerve/tissue damage to surrounding areas. I answered all their questions and with their understanding they have consented to move forward with Operative Fixation of the left hip. The patient will be T&S, med clearance obtained and NPO after midnight. Patient is a rodas of the Brothjeaneth [id number] [facility] ph number: [phone] [facility] office [address] [place] [address] Quality Stroke Does the patient have a stroke diagnosis?: No VTE Prior VTE?: No VTE Risk Level:: Surgical - very high VTE Device Contraindication: N/A - Device Ordered VTE Drug Contraindication: Treatment Not Indicated Procedures Date of Service Date of Service: 09/12/21
--- NOTE | 2021-09-12 10:56 | MHC.CM.PN ---
Addendum entered by Shirlene Graham 09/12/21 11:10: COVID VACCINE CARD COPIED AND SCANNED INTO [facility] Addendum entered by Shirlene Graham 09/12/21 11:02: PTS BROTHER REPORTS AFTER THEIR MOTHER , HE AND HIS SISTERS TRIED TO KEEP THE PT IN THE HOME HOWEVER THEY WERE UNABLE TO PROVIDE 24/7 CARE THEREFORE PT MOVED TO A [facility] CARE HOME. PER THE CARE HOME STAFF MEMBER IN THE PTS ROOM, LOLY, THE HOME HAS STAFF MEMBERS THERE 05/03 AND NURSES WHO OVERSEE CARE. SHE REPORTS THE PT WEARS SPECIAL BOOTS TO ASSIST IN HIS AMBULATION BUT DOES NOT USE A CANE OR WALKER. SHE REPORTS HE REQUIRES CLOSE SUPERVISION WHEN COMPLETING HIS ADL'S ESPECIALLY SHOWERING HE IS VERY UNSTEADY. PT AND FAMILY ARE AWARE PT WILL LIKELY NEED STR AT DC. AT THIS TIME NO ONE HAS INDICATED A PREFERRED FACILITY, HOWEVER IT WILL BE DISCUSSED FURTHER WITH FAMILY AND STAFF ADMINISTRATION. IMM WAS DELIVERED AND SIGNED BY PTS BROTHER. ORIGINAL WAS AT BEDSIDE AND COPY SENT TO [facility] CURRENT DC PLAN IS EXPECTED TO BE STR VIA BLS TRANSPORT Original Note: CM MET [facility] PT TO DISCUSS COMPLETION OF A HCP PT FOUND TO BE ALERT AND ORIENTED X 4 CM EXPLAINED THE PURPOSE OF A HCP PT INDICATED UNDERSTANDING PT STATED HE TRUSTED HIS BROTHER AND TWO SISTERS WHEN ASKED WHICH TWO HE WOULD WANT TO CHOOSE HIS AGENTS, PT REPORTED HIS BROTHER, CALIN, AND SISTER, IZABELA. AFTER FURTHER DISCUSSION WHICH INCLUDED HIS BROTHER, PT CHOSE TO PUT IZABELA PRIMARY SHE APPEARS TO BE MORE CLOSELY INVOLVED IN HIS CARE. HCP COMPLETED, SIGNED BY PATIENT, AND WITNESSED. COPIES WERE GIVEN TO PT, BROTHER, CARE HOME STAFF MEMBER AND SCANNED INTO [facility].
--- NOTE | 2021-09-12 11:49 | P.CONHOSP_ITS ---
History of Present Illness Data of Consult Service Date: 09/12/21 Requesting physician: Jaspreet Monteiro Primary Care Provider: Unknown Physician HPI Reason for consult: Mechanical fall/ left intertrochanteric fracture 61-year-old gentleman with past medical history of Down syndrome [facility] history of obstructive sleep apnea , has not been started on CPAP, brought into [facility] since patient got up in the dark to shut of his alarm clock when he tripped and fell to the striking his head to the ground, as per staff there was no loss of consciousness, patient denied any symptoms of lightheadedness, no dizziness, no chest pain, no nausea vomiting, no fevers, soon after fall patient complained of left leg pain and was unable to get up therefore brought to emergency room, in the ED, patient underwent extensive imaging studies including CT head, CT face, femur x-ray cervical spine CT and hip and pelvis x-ray, all imaging studies came back negative with no ac [place] intracranial findings, no acute maxillofacial fractures, except with showed intertrochanteric left femur fracture with varus angulation and mild impaction, labs showed elevated WBC count of 14.2 potassium 3.6 blood sugar 143 patient admitted to orthopedic surgeon and medical consult obtained for preop clearance, present patient awake alert complaining of left hip pain , patient tolerated breakfast, answere yes to all questions, spring encaser at bedside, informed that patient ambulates short distances at baseline, she is not aware of patient's baseline blood pressures, he tolerates ground solids and thin liquids and he says yes to most of the questions. Review of Systems Verdana 4l Review of Systems: Verdana 4d Verdana 4d General no headache, no dizziness, no fever chills. CVS no chest pain, no palpitation. Respiratory no cough, no sob Gastrointestinal no nausea no vomiting, no abdominal pain no urgency, no burning Verdana 4d Yes all other systemssystems are reviewed and are negative [facility] Medical History Down syndrome Down syndrome Obesity (BMI 30.0-34.9) CONY (obstructive sleep apnea) Social History Household Members: Caregiver and Other Household Members Other:: alf Housing: Other Housing Other:: alf Do you presently have visiting nurse or other home services: Yes Alcohol intake: never Patient Tobacco Use Status: Never used Tobacco service: No Current occupational status: disabled 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 Meds Allergies Allergy/AdvReac Type Severity Reaction Status Date / Time latex Allergy Unknown Verified 06/20/21 15:42 Active Medications: Current Medications Acetaminophen (Acetaminophen 325 Mg Tablet) 650 mg PO Q6H PRN PRN Reason: Pain, Mild (Pain Scale 1-3) Docusate Sodium (Docusate Sodium 100 Mg Capsule) 100 mg PO BID [facility] Sodium Chloride (Ns) 1,000 mls @ 150 mls/hr IVCONT .Q6H40M [facility] Last Admin: 09/12/21 11:07 Dose: Not Given Documented by: Ondansetron HCl (Ondansetron Hcl 4 Mg/2 Ml Vial) 4 mg IVPUSH Q8H PRN PRN Reason: Nausea and Vomiting Oxycodone HCl (Oxycodone Hcl Immed Release 5 Mg Tablet) 5 mg PO Q4H PRN PRN Reason: Pain, Moderate (Pain Scale 4-6 Pharmacy Consult (Consult Rx Perform Med Rec) 1 each MISCELLANE ONCE PRN PRN Reason: Consult order Sodium Chloride (0.9 % Sodium Chloride Flush 3 Ml Syringe) 3 ml IVFLUSH QSHIFT [facility] Last Admin: 09/12/21 11:07 Dose: Not Given Documented by: Home Medications Medication Instructions Recorded Confirmed Last Taken Type acetaminophen 325 650 mg PO Q6H 09/12/21 09/12/21 Unknown History mg tablet PRN loratadine 10 mg 1 tab PO DAILY 09/12/21 09/12/21 09/11/21 History tablet simvastatin 20 mg 1 tab PO BEDTIME 09/12/21 09/12/21 09/11/21 History tablet Physical Exam Verdana 4l Vital Signs and Narrative: Verdana 4d Verdana 4d Vital Signs: Verdana 4d Verdana 4Bd Last Vital Signs Verdana 4d Loan And Credit Manager New 4d Loan And Credit Manager New 4d Temp 98.7 F 09/12/21 05:35 Loan And Credit Manager New 4d Pulse 89 09/12/21 10:21 Loan And Credit Manager New 4d Resp 14 09/12/21 10:21 BP 84/59 L 09/12/21 10:21 Pulse Ox 98 09/12/21 10:21 BMI result Body Mass Index 29.2 Const: Other: General awake alert,in no acute distress. oral mucosa dry Neck supple no JVD. CVS regular rate rhythm, Respiratory lungs clear to auscultation, no respiratory distress Gastrointestinal abdomen soft, nontender, bowel sounds audible Extremities bilateral foot deformity ( chronic as per spring encaser), right knee flexed, left leg shorter than rt. Neuro nonfocal, speech clear. Skin hyperpigmented spots both lower extremities, small laceration left eyebrow Results Labs CBC and Chem 7: 09/13/21 06:49 09/13/21 06:49 Labs: Laboratory Results - last 24 hr 09/12/21 09/12/21 09/12/21 02:09 02:09 02:09 MCV 95.8 MCH 33.0 MCHC 34.5 RDW 14.1 Plt Count 192 MPV 10.4 Immature Gran % (Auto) 0.4 Neut % (Auto) 85.1 H Lymph % (Auto) 9.5 L [place] % (Auto) 4.6 Eos % (Auto) 0.0 Baso % (Auto) 0.4 Lymph # (Auto) 1.4 [place] # (Auto) 0.7 Eos # (Auto) 0.0 Baso # (Auto) 0.1 Abs Immat Gran (auto) 0.06 H Absolute Neuts (auto) 12.1 H Absolute Nucleated RBC 0.000 Nucleated RBC % (auto) 0.0 PT 12.5 INR 1.1 APTT 32.4 Anion Gap 17 Estim Creat Clear Calc 66.9 Estimated GFR > 60 Random Glucose Not Reportable Fasting Glucose 143 H D Calcium 8.4 Total Bilirubin 0.8 AST 27 ALT 23 Alkaline Phosphatase 88 Total Protein 6.6 Albumin 3.4 L Urine Color Urine Appearance Urine pH Ur Specific [place] Urine Protein Urine Glucose (UA) Urine Ketones Urine Blood Urine Nitrite Ur Leukocyte Esterase Urine RBC Urine WBC Ur Squamous Epith Cells Urine Bacteria Urine Mucus COVID-19 (ODALYS) COVID-19 Clin Com Blood Type Antibody Screen 09/12/21 09/12/21 09/12/21 02:09 03:25 09:27 MCV MCH MCHC RDW Plt Count MPV Immature Gran % (Auto) Neut % (Auto) Lymph % (Auto) [place] % (Auto) Eos % (Auto) Baso % (Auto) Lymph # (Auto) [place] # (Auto) Eos # (Auto) Baso # (Auto) Abs Immat Gran (auto) Absolute Neuts (auto) Absolute Nucleated RBC Nucleated RBC % (auto) PT INR APTT Anion Gap Estim Creat Clear Calc Estimated GFR Random Glucose Fasting Glucose Calcium Total Bilirubin AST ALT Alkaline Phosphatase Total Protein Albumin Urine Color YELLOW Urine Appearance CLEAR Urine pH 6.0 Ur Specific [place] >= 1.030 H Urine Protein 1+ H Urine Glucose (UA) NEG Urine Ketones 40 Urine Blood 3+ H Urine Nitrite NEG Ur Leukocyte Esterase NEG Urine RBC 30-49 H Urine WBC 1-4 Ur Squamous Epith Cells 1+ Urine Bacteria 2+ Urine Mucus 2+ COVID-19 (ODALYS) Negative COVID-19 Clin Com See Note Blood Type O Negative Antibody Screen NEGATIVE Imaging Radiologist's Impressions: Impressions Cervical Spine CT 09/12/21 01:00 IMPRESSION: 1. No acute intracranial finding. 2. No acute maxillofacial fracture. 3. No fracture or malalignment of the cervical spine. Advanced chronic changes with diffuse bony fusion. Face CT 09/12/21 01:00 IMPRESSION: 1. No acute intracranial finding. 2. No acute maxillofacial fracture. 3. No fracture or malalignment of the cervical spine. Advanced chronic changes with diffuse bony fusion. Head CT 09/12/21 01:00 IMPRESSION: 1. No acute intracranial finding. 2. No acute maxillofacial fracture. 3. No fracture or malalignment of the cervical spine. Advanced chronic changes with diffuse bony fusion. Femur X-Ray 09/12/21 01:48 IMPRESSION: Intertrochanteric left femur fracture with varus angulation and mild impaction. Hip/Pelvis X-Ray 09/12/21 01:48 IMPRESSION: Intertrochanteric left femur fracture with varus angulation and mild impaction. Assessment and Plan (1) Closed femur fracture: Status: Acute (2) Fall: Status: Acute (3) CONY (obstructive sleep apnea): Status: Acute (4) Hypotension: Status: Acute Plan 61-year-old gentleman, with history of Down syndrome, obstructive sleep apnea not on CPAP, history of bilateral foot deformity, [facility], presented after mechanical fall and diagnosed to have left intertrochanteric fracture, admitted to Ortho and scheduled for left hip surgery tomorrow. Hypotension Blood pressure dropped to 77/51 after receiving IV morphine, treat with IV fluids, 1 dose of midodrine given, optimize blood pressure avoid high- dose narcotics. Obstructive sleep apnea, patient has no hypoxia, currently not on CPAP does not need further intervention at this time. Leukocytosis obtained chest x-ray, that showed increased interstitial markings differential included mild interstitial pulmonary edema versus atypical interstitial pneumonia, since patient with leukocytosis will treat for pneumonia, with IV ceftriaxone and azithromycin, follow clinical course, UA unremarkable, follow CBC Left intertrochanteric fracture EKG showed no acute ischemic changes, patient at low risk for perioperative and postoperative complications for moderate risk surgery, minimize use of morphine,stable pulmonary status, no further workup recommended prior to surgery. DVT prophylaxis as per Ortho
[2021-09-12] MEDS: Acetaminophen 325 MG TABLET 650 MG PO ×2 (13:35→19:55)
[2021-09-12] MEDS: Midodrine HCl 5 MG TABLET PO (13:35)
--- NOTE | 2021-09-12 13:49 | PC.NURSE ---
per residential- pt requires puree diet pt had small episode of spit up/ vomiting
[2021-09-12] MEDS: cefTRIAXone sodium 1 GM in 0.9 % Sodium Chloride 50 ML IV (16:20)
[2021-09-12] MEDS: Azithromycin 500 MG in 0.9 % Sodium Chloride 250 ML 125 MG IV (17:33)
[2021-09-12] MEDS: 0.9 % Sodium Chloride 1,000 ML 80 ML IVCONT (20:28)
[2021-09-12] MEDS: Docusate Sodium 100 MG CAPSULE PO (21:00)
[2021-09-13] VITALS (15 sets, daily range): BP systolic 96–148; BP diastolic 58–87; PULSE 60–126; RESP 16–20; TEMP 36.1–37.8; O2SAT 92–98
[2021-09-13] MEDS: Acetaminophen 325 MG TABLET 650 MG PO ×2 (01:57→19:37)
[2021-09-13] MEDS: 0.9 % Sodium Chloride 1,000 ML 80 ML IVCONT ×2 (02:03→23:46)
[2021-09-13 07:07] LABS: MANUAL DIFF FLAG NO
[2021-09-13 07:15] LABS: Basophils Absolute Auto 0.1 X10*3/uL (0.0-0.2); Basophils Percent Auto 0.5 % (0-2); Hematocrit 39.8 % (42.0-52.0); Hemoglobin 13.3 g/dl (14.0-18.0); Imm Gran Abs Auto 0.07 X10*3/uL (0.00-0.03); Imm Gran Pct Auto 0.7 % (0.0-0.4); Lymphocytes Absolute Auto 0.9 X10*3/uL (1.2-4.9); Lymphocytes Percent Auto 9.9 % (20-40); Mean Corpuscular HGB Conc 33.4 g/dl (31.0-36.0); Mean Corpuscular Hemoglobin 32.5 pg (27.0-33.0); Mean Corpuscular Volume 97.3 fL (80.0-98.0); Mean Platelet Volume 10.6 fL (9.4-12.4); Monocytes Absolute Auto 0.7 X10*3/uL (0.1-1.2); Monocytes Percent Auto 7.6 % (2-11); Neutrophils Absolute Auto 7.6 x10*3/uL (2.0-8.3); Neutrophils Percent Auto 81.3 % (45-73); Platelet Count 144 X10*3/uL (160-400); Red Blood Count 4.09 X10*6/uL (4.60-5.80); Red Cell Distribution Width 14.2 % (11.0-16.0); White Blood Count 9.4 X10*3/uL (4.8-10.8)
[2021-09-13 07:28] LABS: Glucose, Whole Blood 131 mg/dL (60-115)
[2021-09-13 07:31] LABS: Anion Gap 9 (12-20); Blood Urea Nitrogen 10 mg/dL (9-16); Calcium 8.1 mg/dL (8.4-10.2); Carbon Dioxide 27 mmol/L (22-29); Chloride 109 mmol/L (96-108); Creatinine Clr Calc Pharmacy 86.9; Estimated Glomerular Filt Rate > 60; Glucose Fasting 122 mg/dL (60-99); Potassium 3.8 mmol/L (3.3-5.1); Sodium 141 mmol/L (135-145)
--- NOTE | 2021-09-13 10:36 | PC.NURSE ---
Pt spit up small amount of brown fluid. Temperature 99.8 temporal. Radhika Juan made aware. Will continue to monitor.
--- NOTE | 2021-09-13 11:46 | P.PNIM_ITS ---
Subjective Subjective Date of Service: 09/13/21 Interval History: resting comfortably in bed , offers no acute complaints, geriatric case manager from [facility] also at bedside feels patient is doing good, coughing up small amount of brown phlegm, complaining of dry mouth and is NPO, waiting for surgery, denies chills noted to have temp of 100 degrees. Review of Systems Review of Systems: Yes all other systems are reviewed and are negative Physical Exam Verdana 4l Vital Signs: Verdana 4d Verdana 4d Vital Signs: Verdana 4d Verdana 4Bd Last Vital Signs Verdana 4d Operating Manager New 4d Operating Manager New 4d Temp 100.0 F 09/13/21 07:07 Operating Manager New 4d Pulse 100 09/13/21 07:07 Operating Manager New 4d Resp 20 09/13/21 07:07 BP 118/65 09/13/21 07:07 Pulse Ox 95 09/13/21 07:07 BMI result Body Mass Index 29.2 General?awake aler t,in no acute dist ress.? oral mucosa dry Neck? supple no JVD. CVS? regul ar rate rhythm, Re spiratory lungs cl ear to auscultatio n, no respiratory distress , no crac kles Gastrointesti nal abdomen soft, nontender, bowel s ounds audible Extr emities?ch. bilate ral foot deformity , left leg shorte r than rt. Neuro n onfocal, speech cl ear. Skin? hyperpi gmented spots both lower extremities , small laceration left eyebrow heal ing well Objective Data Active Medications Acetaminophen (Acetaminophen 325 Mg Tablet) 650 mg PO Q6H [facility] Last Admin: 09/13/21 06:29 Dose: Not Given Documented by: KENNY Non-Admin Reason: NPO Docusate Sodium (Docusate Sodium 100 Mg Capsule) 100 mg PO BID [facility] Last Admin: 09/13/21 08:55 Dose: Not Given Documented by: ELIANE Non-Admin Reason: NPO Sodium Chloride (Ns) 1,000 mls @ 80 mls/hr IVCONT .[id number] [facility] Last Admin: 09/13/21 02:03 Dose: 80 mls/hr Documented by: KENNY Ceftriaxone Sodium 1 gm/ (Sodium Chloride) 50 mls @ 100 mls/hr IV Q24H [facility] Last Infusion: 09/12/21 17:27 Dose: 0 mls/hr Documented by: ELIANE Azithromycin 500 mg/ Sodium (Chloride) 250 mls @ 125 mls/hr IV Q24H [facility] Last Infusion: 09/12/21 20:32 Dose: 125 mls/hr Documented by: KENNY Ondansetron HCl (Ondansetron Hcl 4 Mg/2 Ml Vial) 4 mg IVPUSH Q8H PRN PRN Reason: Nausea and Vomiting Oxycodone HCl (Oxycodone Hcl Immed Release 5 Mg Tablet) 5 mg PO Q4H PRN PRN Reason: Pain, Moderate (Pain Scale 4-6 Pharmacy Consult (Consult Rx Perform Med Rec) 1 each MISCELLANE ONCE PRN PRN Reason: Consult order Sodium Chloride (0.9 % Sodium Chloride Flush 3 Ml Syringe) 3 ml IVFLUSH QSHIFT [facility] Last Admin: 09/13/21 08:55 Dose: Not Given Documented by: ELIANE Non-Admin Reason: IV Running Labs CBC & Chem 7: 09/13/21 06:49 09/13/21 06:49 Labs: Laboratory Results - last 24 hr 09/13/21 09/13/21 09/13/21 06:49 06:49 07:06 MCV 97.3 MCH 32.5 MCHC 33.4 RDW 14.2 Plt Count 144 L MPV 10.6 Immature Gran % (Auto) 0.7 H Neut % (Auto) 81.3 H Lymph % (Auto) 9.9 L [place] % (Auto) 7.6 Eos % (Auto) 0.0 Baso % (Auto) 0.5 Lymph # (Auto) 0.9 L [place] # (Auto) 0.7 Eos # (Auto) 0.0 Baso # (Auto) 0.1 Abs Immat Gran (auto) 0.07 H Absolute Neuts (auto) 7.6 Absolute Nucleated RBC 0.000 Nucleated RBC % (auto) 0.0 Anion Gap 9 L Estim Creat Clear Calc 86.9 Estimated GFR > 60 POC Glucose 131 H Fasting Glucose 122 H Calcium 8.1 L Assessment and Plan (1) Hypotension: Status: Acute (2) Closed femur fracture: Status: Acute (3) CONY (obstructive sleep apnea): Status: Acute (4) Down syndrome: Status: Acute (5) Pneumonia: Status: Acute Plan ?61-year-old gentleman,? with history of Down syndrome, obstructive sleep apnea not on CPAP, history of bilateral foot deformity, resident of [facility], presented after mechanical fall and diagnosed to have left intertrochanteric fr acture, admitted to Ortho and scheduled for left hip surgery tomorrow. Hypotension resolved was likely related to multiple dosages of IV morphine, DC IV fluid when able to take by mouth by mouth, hypertension not related to sepsis ? Obstructive sleep apnea, patient has no hypoxia, currently not on CPAP does not need further intervention at this time. Pneumonia low-grade fever and cough, leukocytosis resolved, continue IV ceftriaxone and azithromycin day 2 continue cough medication and supportive care chest x-ray, showed increased interstitial markings differential included mild interstitial pulmonary edema versus atypical interstitial pneumonia Left intertrochanteric fracture? EKG showed no acute ischemic changes pain management/ anticoagulation as per orthopedic surgeon, DVT prophylaxis as per Ortho Quality Stroke Does the patient have a stroke diagnosis?: No VTE Prior VTE?: No VTE Risk Level:: Surgical - very high VTE Device Contraindication: N/A - Device Ordered VTE Drug Contraindication: Treatment Not Indicated
--- NOTE | 2021-09-13 12:00 | MHC.CM.PN ---
Addendum entered by Gisela Vital RN 09/13/21 12:57: CM REACHED OUT TO PT'S BENZENE STILL UTILITY OPERATOR MICHAELA HUGGINS AT 12:45PM [phone] TO REQUEST HE BRING IN PT'S SPECIAL SHOES AND CLOTHING FOR REHAB, MICHAELA REPORTED HE WILL HAVE STAFF BRING ITEMS BY TOMORROW MORNING AND ASKED IF SOMEONE COULD CALL ONCE PT RETURNS FROM SURGERY SO HE CAN SEND STAFF TO STAY W/PT AND REPORTED HE WILL COVER DAY AND EVENING SHIFTS WHILE PT IS INPT. Original Note: CM REACHED OUT TO PT'S HCP/SISTER IZABELA WAKEFIELD AT 11:50PM TO DISCUSS DCP AND SNF PREFERENCES, PER IZABELA FAMILIES [facility], [facility]OND CHOICE AND [facility] THIRD CHOICE. IZABELA ALSO WANTED ME TO MAKE SURE PT IS AWARE PT HAS A FEET DEFORMITY AND VERY UNUSUAL GATE AND AT BASELINE WALKS ON THE INSIDE OF HIS ANKLES, IZABELA ALSO REPORTS PT CAN BE UNSTEADY AT BASELINE AND WEARS SPECIAL SHOES, THIS CM WILL CONTACT HALF-WAY TO HAVE STAFF BRING IN HIS SPECIAL SHOES IF THEY HAVE NOT ALREADY BEEN BROUGHT IN.
--- NOTE | 2021-09-13 14:11 | PC.NURSE ---
Pharmacy contacted r/t Rocephin 1 gm IV dose due at 1500 and Zithromax 500 mg IV due at 1600. Both meds are due during the intraop period. Pharmacy will bring both meds to PACU where pt is being prepped for surgery
[2021-09-13] MEDS: cefTRIAXone sodium 1 GM in 0.9 % Sodium Chloride 50 ML IV (14:42)
--- NOTE | 2021-09-13 15:03 | MHC.SHP ---
Pre-Procedural Eval Section A Date of Service: 09/13/21 The patient is an INPATIENT: No Changes since office visit: Yes Patient answered all questions; No Cold of Flu in the past 2 weeks, No New Medical Problems and No Changes in Medication The History & Physical has been completed within 30 days and I have reviewed it.: Yes Section B Chief Complaint: LEFT HIP FX Allergies: Allergies Allergy/AdvReac Type Severity Reaction Status Date / Time latex Allergy Unknown Verified 06/20/21 15:42 Plan I have reviewed the history and physical and performed a pertinent physical examination on my patient. No changes have occurred unless specified.
--- NOTE | 2021-09-13 16:59 | PM.OP ---
Brief Operative Note Date of Service: 09/13/21 Pre-op diagnosis: left hip IT fx Post-op diagnosis: same Procedure: Left hip cephalomedullary nail Implants: [place] [id number] 125 deg with 105 mm hip screw Surgeon: Mj Khalil MD Anesthesia: GETA and local Was an Counter Supervisor used for this Procedure?: Yes Counter Supervisor: Radhika Juan Estimated blood loss (mL): 200 IV fluids (mL): 1,000 Pathology: none sent Condition: stable Disposition: PACU
[2021-09-13] MEDS: Azithromycin 500 MG in 0.9 % Sodium Chloride 250 ML 125 MG IV (17:31)
--- NOTE | 2021-09-13 17:39 | PC.NURSE ---
HCP MADE AWARE PATIENT IN PACU. ON HER WAY
[2021-09-13] MEDS: oxyCODONE HCl Immed Release 5 MG TABLET PO (19:38)
[2021-09-14] VITALS: RESP 18
[2021-09-14] MEDS: Acetaminophen 325 MG TABLET 650 MG PO ×3 (01:34→12:12)
[2021-09-14] MEDS: oxyCODONE HCl Immed Release 5 MG TABLET PO ×3 (01:34→12:12)
[2021-09-14 03:39] VITALS: BP 105/64; PULSE 120; RESP 18; TEMP 36.9; O2SAT 94
[2021-09-14 05:57] LABS: MANUAL DIFF FLAG NO
[2021-09-14 06:08] LABS: Basophils Percent Auto 0.3 % (0-2); Eosinophils Percent Auto 0.1 % (0-4); Hematocrit 35.2 % (42.0-52.0); Hemoglobin 11.6 g/dl (14.0-18.0); Imm Gran Abs Auto 0.06 X10*3/uL (0.00-0.03); Imm Gran Pct Auto 0.6 % (0.0-0.4); Lymphocytes Absolute Auto 1.4 X10*3/uL (1.2-4.9); Lymphocytes Percent Auto 13.1 % (20-40); Mean Corpuscular Hemoglobin 32.6 pg (27.0-33.0); Mean Corpuscular Volume 98.9 fL (80.0-98.0); Mean Platelet Volume 11.2 fL (9.4-12.4); Monocytes Absolute Auto 0.8 X10*3/uL (0.1-1.2); Monocytes Percent Auto 7.5 % (2-11); Neutrophils Absolute Auto 8.1 x10*3/uL (2.0-8.3); Neutrophils Percent Auto 78.4 % (45-73); Platelet Count 141 X10*3/uL (160-400); Red Blood Count 3.56 X10*6/uL (4.60-5.80); Red Cell Distribution Width 14.6 % (11.0-16.0); White Blood Count 10.3 X10*3/uL (4.8-10.8)
[2021-09-14 06:24] LABS: Anion Gap 13 (12-20); Blood Urea Nitrogen 13 mg/dL (9-16); Calcium 8.1 mg/dL (8.4-10.2); Carbon Dioxide 25 mmol/L (22-29); Chloride 110 mmol/L (96-108); Creatinine Clr Calc Pharmacy 67.6; Estimated Glomerular Filt Rate > 60; Glucose Fasting 125 mg/dL (60-99); Potassium 3.8 mmol/L (3.3-5.1); Sodium 144 mmol/L (135-145)
--- NOTE | 2021-09-14 06:54 | HO.POSTANES ---
Post Anesthesia Evaluation Post Anesthesia Evaluation Vital Signs: Vital Signs Temp Pulse Resp BP Pulse Ox 09/14/21 03:39 98.4 F 120 H 18 105/64 94 09/14/21 00:00 18 09/13/21 23:00 98.2 F 110 H 17 96/66 98 09/13/21 19:39 98.2 F 122 H 18 112/58 L 94 Anesthesia: General Mental Status: Awake Pain Control: Satisfactory Nausea/Vomiting: None Hydration: Adequate Anesthesia-Related Issues: No Anes. Related Issues
[2021-09-14 07:35] VITALS: BP 130/58; PULSE 100; RESP 18; TEMP 36.9; O2SAT 93
--- NOTE | 2021-09-14 07:42 | P.PNOP_ITS ---
Subjective Subjective Date of Service: 09/14/21 Interval history: POD1 s/p lt hip IM Nail with Dr. Khalil. Patient is resting comfortably in bed. No overnight events. Pain is managed. No additional complaints. Physical Exam Verdana 4l Vital Signs: Verdana 4d Verdana 4d Vital Signs: Verdana 4d Verdana 4Bd Last Vital Signs Verdana 4d Medical Records Manager New 4d Medical Records Manager New 4d Temp 98.5 F 09/14/21 07:35 Medical Records Manager New 4d Pulse 100 09/14/21 07:35 Medical Records Manager New 4d Resp 18 09/14/21 07:35 BP 130/58 L 09/14/21 07:35 Pulse Ox 93 09/14/21 07:35 BMI result Body Mass Index 29.2 Const: General: cooperative, healthy appearing and no acute distress Resp: Effort & Inspection: normal respiratory effort and able to speak in complete sentences Cardio: Rate: regular rate Peripheral pulses: Peripheral pulses 2+ throughout GI: Palpation (GI): Soft to palpation Skin: Lesions: no lesions Rashes: no rashes Extrem: Other: Left hip dressing is clean. dry, and intact. NVI. Procedures Date of Service Date of Service: 09/14/21 Progress Note: A&P Assessment and plan (1) Closed femur fracture: Status: Acute Assessment and Plan: Continue pain mgmnt Begin ASA for dvt ppx begin PT for lt hip IM Nail - WBAT Dispo planning-Pending PT eval, pain mgmnt Fall Risk Details Current Medications: Current Medications Acetaminophen (Acetaminophen 325 Mg Tablet) 650 mg PO Q6H [facility] Last Admin: 09/14/21 06:34 Dose: 650 mg Documented by: Docusate Sodium (Docusate Sodium 100 Mg Capsule) 100 mg PO BID [facility] Last Admin: 09/13/21 22:29 Dose: Not Given Documented by: Fentanyl (Fentanyl Citrate/Pf 100 Mcg/2 Ml Vial) 12.5 mcg IV Q5M PRN; Protocol PRN Reason: Pain, Moderate (Pain Scale 4-6 Ceftriaxone Sodium 1 gm/ (Sodium Chloride) 50 mls @ 100 mls/hr IV Q24H [facility] Last Infusion: 09/13/21 18:52 Dose: Infused Documented by: Azithromycin 500 mg/ Sodium (Chloride) 250 mls @ 125 mls/hr IV Q24H [facility] Last Infusion: 09/13/21 19:33 Dose: Infused Documented by: Cefazolin Sodium/Dextrose (Ancef) 2 gm in 50 mls @ 100 mls/hr IV POSTOP SALLY Ondansetron HCl (Ondansetron Hcl 4 Mg/2 Ml Vial) 4 mg IVPUSH Q8H PRN PRN Reason: Nausea and Vomiting Oxycodone HCl (Oxycodone Hcl Immed Release 5 Mg Tablet) 5 mg PO Q4H PRN PRN Reason: Pain, Moderate (Pain Scale 4-6 Oxycodone HCl (Oxycodone Hcl Immed Release 5 Mg Tablet) 5 mg PO Q6H [facility] Last Admin: 09/14/21 06:34 Dose: 5 mg Documented by: Pharmacy Consult (Consult Rx Perform Med Rec) 1 each MISCELLANE ONCE PRN PRN Reason: Consult order Sodium Chloride (0.9 % Sodium Chloride Flush 3 Ml Syringe) 3 ml IVFLUSH QSHIFT [facility] Last Admin: 09/13/21 23:45 Dose: Not Given Documented by: Time Spent With Patient Time: Total time spent is greater than 50% in coordination of care (as documented) at patient's floor/unit and/or counseling patient: Time with patient: less than 15 minutes Quality Stroke Does the patient have a stroke diagnosis?: No VTE Prior VTE?: No VTE Risk Level:: Surgical - very high VTE Device Contraindication: N/A - Device Ordered VTE Drug Contraindication: Treatment Not Indicated
[2021-09-14 09:11] VITALS: BP 130/58; PULSE 100; O2SAT 93
[2021-09-14] MEDS: Enoxaparin Sodium 40 MG/0.4 ML SYRINGE SUBCUT (09:14)
[2021-09-14] MEDS: Docusate Sodium 100 MG CAPSULE PO (09:14)
--- NOTE | 2021-09-14 10:18 | P.PNIM_ITS ---
Subjective Subjective Date of Service: 09/14/21 Interval History: awake alert this morning denies left hip pain , denies anxiety, no chest pain, no shortness of breath, no palpitations, no other acute issues overnight, vitals reviewed showed tachycardia. offal worker at bedside feels patient is anxious. Review of Systems Review of Systems: Yes all other systems are reviewed and are negative Physical Exam Verdana 4l Vital Signs: Verdana 4d Verdana 4d Vital Signs: Verdana 4d Verdana 4Bd Last Vital Signs Verdana 4d Book Illustrator New 4d Book Illustrator New 4d Temp 98.5 F 09/14/21 07:35 Book Illustrator New 4d Pulse 100 09/14/21 09:11 Book Illustrator New 4d Resp 18 09/14/21 07:35 BP 130/58 L 09/14/21 09:11 Pulse Ox 93 09/14/21 09:11 BMI result Body Mass Index 29.2 Const: Other: General?awake alert,in no acute distress, appears anxious holding on to bed rails.? oral mucosa?dry Neck? suppleno JVD. CVS? regular rate rhythm, Respiratory lungs clear to auscultation, no respiratorydistress , no crackles Gastrointestinal abdomen soft,nontender, bowel sounds audible Extremities?ch. bilateral foot deformity?, left hip dressing in place Neuro nonfocal, speech clear. Skin? hyperpigmented spots both?lower extremities, small laceration?left eyebrow healing well Objective Data Active Medications Acetaminophen (Acetaminophen 325 Mg Tablet) 650 mg PO Q6H [facility] Last Admin: 09/14/21 06:34 Dose: 650 mg Documented by: ROSALIND Docusate Sodium (Docusate Sodium 100 Mg Capsule) 100 mg PO BID [facility] Last Admin: 09/14/21 09:14 Dose: 100 mg Documented by: SIMA Enoxaparin Sodium (Enoxaparin Sodium 40 Mg/0.4 Ml Syringe) 40 mg SUBCUT Q24H [facility] Last Admin: 09/14/21 09:14 Dose: 40 mg Documented by: SIMA Fentanyl (Fentanyl Citrate/Pf 100 Mcg/2 Ml Vial) 12.5 mcg IV Q5M PRN; Protocol PRN Reason: Pain, Moderate (Pain Scale 4-6 Ceftriaxone Sodium 1 gm/ (Sodium Chloride) 50 mls @ 100 mls/hr IV Q24H [facility] Last Infusion: 09/13/21 18:52 Dose: 0 mls/hr Documented by: ELIANE Azithromycin 500 mg/ Sodium (Chloride) 250 mls @ 125 mls/hr IV Q24H [facility] Last Infusion: 09/13/21 19:33 Dose: 0 mls/hr Documented by: ELIANE Cefazolin Sodium/Dextrose (Ancef) 2 gm in 50 mls @ 100 mls/hr IV POSTOP SALLY Ondansetron HCl (Ondansetron Hcl 4 Mg/2 Ml Vial) 4 mg IVPUSH Q8H PRN PRN Reason: Nausea and Vomiting Oxycodone HCl (Oxycodone Hcl Immed Release 5 Mg Tablet) 5 mg PO Q4H PRN PRN Reason: Pain, Moderate (Pain Scale 4-6 Oxycodone HCl (Oxycodone Hcl Immed Release 5 Mg Tablet) 5 mg PO Q6H [facility] Last Admin: 09/14/21 06:34 Dose: 5 mg Documented by: ROSALIND Pharmacy Consult (Consult Rx Perform Med Rec) 1 each MISCELLANE ONCE PRN PRN Reason: Consult order Sodium Chloride (0.9 % Sodium Chloride Flush 3 Ml Syringe) 3 ml IVFLUSH QSHIFT [facility] Last Admin: 09/14/21 09:16 Dose: Not Given Documented by: SIMA Non-Admin Reason: IV Running Labs CBC & Chem 7: 09/14/21 05:14 09/14/21 05:14 Labs: Laboratory Results - last 24 hr 09/14/21 09/14/21 05:14 05:14 MCV 98.9 H MCH 32.6 MCHC 33.0 RDW 14.6 Plt Count 141 L MPV 11.2 Immature Gran % (Auto) 0.6 H Neut % (Auto) 78.4 H Lymph % (Auto) 13.1 L [place] % (Auto) 7.5 Eos % (Auto) 0.1 Baso % (Auto) 0.3 Lymph # (Auto) 1.4 [place] # (Auto) 0.8 Eos # (Auto) 0.0 Baso # (Auto) 0.0 Abs Immat Gran (auto) 0.06 H Absolute Neuts (auto) 8.1 Absolute Nucleated RBC 0.000 Nucleated RBC % (auto) 0.0 Anion Gap 13 Estim Creat Clear Calc 67.6 Estimated GFR > 60 Fasting Glucose 125 H Calcium 8.1 L Assessment and Plan (1) Hypotension: Status: Acute (2) Closed femur fracture: Status: Acute (3) CONY (obstructive sleep apnea): Status: Acute (4) Down syndrome: Status: Acute (5) Pneumonia: Status: Acute Plan ?61-year-old gentleman,? with history of Down syndrome, obstructive sleep apnea not on CPAP, history of bilateral foot deformity, resident of [facility], presented after mechanical fall and diagnosed to have left intertrochanteric fracture, admitted to Ortho and scheduled for left hip surgery tomorrow. Hypotension resolved was likely related to multiple dosages of IV morphine, BP remains stable. ? Obstructive sleep apnea, patient has no hypoxia, currently not on CPAP does not need further intervention at this time. Pneumonia Fever and leukocytosis resolved status post IV ceftriaxone and azithromycin day 3 will discharge on 4 more days of by mouth antibiotics continue cough medication and supportive care chest x-ray, showed increased interstitial markings differential included mild interstitial pulmonary edema versus atypical interstitial pneumonia mild tachycardia improved likely related to anxiety /pain Left intertrochanteric fracture? postoperative day 1 EKG showed no acute ischemic changes recommend scheduled pain management/ anticoagulation as per orthopedic surgeon, patient medically stable for discharge, DC Pugh catheter DVT prophylaxis as per Ortho Quality Stroke Does the patient have a stroke diagnosis?: No VTE Prior VTE?: No VTE Risk Level:: Surgical - very high VTE Device Contraindication: N/A - Device Ordered VTE Drug Contraindication: Treatment Not Indicated
--- NOTE | 2021-09-14 10:38 | P.DS_ITS ---
DS: Providers Provider Date of Service: 09/14/21 Date of admission: 09/12/21 09:04 Primary care physician: Unknown Physician Consults: 09/12/21 09:08 Consult to Hospitalist Routine Consulting Provider: Hospitalist Reason For Exam: HIP FX-PRE OP CLEARANCE DS: Diagnosis Discharge Diagnosis (1) Closed femur fracture: Status: Acute (2) Pneumonia: Status: Acute DS: Summary Hospital Course Hospital Course: The patient underwent a successful Left hip operative fixation, was transferred to PACU and then to the floor to recover. During their stay, their vitals were stable, afebrile at 98.5 . Labs were unremarkable, H/H 11.6/35.2. POD 1 He was started on Lovenox for DVT ppx, they also received PT/OT services. Prior to discharge, dressing is clean dry and intact, and the plan is to be d/c to STR. Of note, on Hospital stay day 2 he did develop PNA and was started on empiric abx which he will continue on discharge. Time Spent with Patient Time attestation: Total time spent providing and/or coordinating discharge services: Discharge coordination time: Less than 30 minutes Quality: Stroke Does the patient have a stroke diagnosis?: No Physical Exam 2 Verdana 4l Vital Signs: Verdana 4d Verdana 4d Vital Signs: Verdana 4d Verdana 4Bd Last Vital Signs Verdana 4d Lead Game Designer New 4d Lead Game Designer New 4d Temp 98.5 F 09/14/21 07:35 Lead Game Designer New 4d Pulse 100 09/14/21 09:11 Lead Game Designer New 4d Resp 18 09/14/21 07:35 BP 130/58 L 09/14/21 09:11 Pulse Ox 93 09/14/21 09:11 BMI result Body Mass Index 29.2 Const: General: cooperative, healthy appearing and no acute distress Resp: Effort & Inspection: normal respiratory effort and able to speak in complete sentences Cardio: Rate: regular rate Peripheral pulses: Peripheral pulses 2+ throughout GI: Palpation (GI): Soft to palpation Skin: General skin exam: no rashes or lesions noted Extrem: Other: incision clean dry and intact. Leigh Ann intact. No erythema or effusion. Calf supple nontender. Neurovascularly intact. DS: Data Data Completed and Pending Labs on day of discharge: Laboratory Results - last 24 hr 09/14/21 09/14/21 05:14 05:14 WBC 10.3 RBC 3.56 L Hgb 11.6 L Hct 35.2 L MCV 98.9 H MCH 32.6 MCHC 33.0 RDW 14.6 Plt Count 141 L MPV 11.2 Immature Gran % (Auto) 0.6 H Neut % (Auto) 78.4 H Lymph % (Auto) 13.1 L [place] % (Auto) 7.5 Eos % (Auto) 0.1 Baso % (Auto) 0.3 Lymph # (Auto) 1.4 [place] # (Auto) 0.8 Eos # (Auto) 0.0 Baso # (Auto) 0.0 Abs Immat Gran (auto) 0.06 H Absolute Neuts (auto) 8.1 Absolute Nucleated RBC 0.000 Nucleated RBC % (auto) 0.0 Sodium 144 Potassium 3.8 Chloride 110 H Carbon Dioxide 25 Anion Gap 13 BUN 13 Creatinine 0.99 Estim Creat Clear Calc 67.6 Estimated GFR > 60 Fasting Glucose 125 H Calcium 8.1 L Discharge Plan Discharge Patient Disposition: [facility] Discharge Diagnosis: s/p left hip operative fixation Referrals: Physician,Unknown J [Primary Care Provider] - 1 Week Discharge Medications: New acetaminophen 325 mg Tablet 650 mg PO Q6H 30 Days Qty: 240 0RF docusate sodium 100 mg Capsule 100 mg PO BID 30 Days Qty: 60 0RF oxycodone 5 mg Tablet 5 mg PO Q6H 7 Days Qty: 28 0RF enoxaparin 40 mg/0.4 mL Syringe 40 mg subcut Q24H 42 Days Qty: 16.8 0RF Continued acetaminophen 325 mg tablet 650 mg PO Q6H PRN (Reason: Pain) 0RF simvastatin 20 mg tablet 1 tab PO BEDTIME 0RF loratadine 10 mg tablet 1 tab PO DAILY 0RF Discharge Orders: Discharge Order (Routine); Ordered 09/14/21 Ordered By: Radhika Juan Diet: regular diet Activity on Discharge: Use cane or walker Stand Alone Forms: Patient Portal Discharge page Print Language: Chinese Care Plan Goals: Restore function of joint Health Concerns: Pneumonia Plan of Treatment: Physical Therapy Pain management DVT prophylaxis Assessment: Gait training, strengthening, ADLs Continue Lovenox keep bandages clean,dry and intact-no showering or tub baths Follow up with Orthopedics in 2 weeks
[2021-09-14 12:00] VITALS: BP 136/62; PULSE 64; RESP 18; TEMP 36.7; O2SAT 95
--- NOTE | 2021-09-22 11:52 | HO.ANESPROP2 ---
HPI - Anesthesia Eval Consult details Narrative: 61 M with DS, CONY p/f femur fracture ORIF PMFSH Active Problems Active Problems: All Active Problems (Updated 09/22/21 @ 00:03 by Tavo Johnson) Pneumonia (Acute) Closed femur fracture (Acute) Obesity (BMI 30.0-34.9) (Acute) Fracture of base of fifth metacarpal bone (Acute) Arthritis of carpometacarpal (CMC) joint of right thumb (Acute) Past Medical History Medical History Down syndrome Down syndrome Obesity (BMI 30.0-34.9) CONY (obstructive sleep apnea) Family History Family history of problems with anesthesia: No Surgical History History of Problems with Anesthesia: No Social History Social History Household Members: Caregiver and Other Household Members Other:: prison Housing: Other Housing Other:: prison Do you presently have visiting nurse or other home services: Yes Alcohol intake: never Patient Tobacco Use Status: Never used Tobacco Advance Directives Date on File: 09/13/21 service: No Current occupational status: disabled 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 Meds Allergies Allergy/AdvReac Type Severity Reaction Status Date / Time latex Allergy Unknown Verified 06/20/21 15:42 Home Medications Medication Instructions Recorded Confirmed Last Taken Type acetaminophen 325 mg tablet 650 mg PO Q6H PRN 09/12/21 09/12/21 Unknown History loratadine 10 mg tablet 1 tab PO DAILY 09/12/21 09/12/21 09/11/21 History simvastatin 20 mg tablet 1 tab PO BEDTIME 09/12/21 09/12/21 09/11/21 History Exam Exam Date and Time: September 22, 2021 1152 Height,Weight and Vital Signs: Height 5 ft 1 in Weight 155 lb Last Vital Signs Temp 98.0 F 09/14/21 12:00 Pulse 64 09/14/21 12:00 Resp 18 09/14/21 12:00 BP 136/62 09/14/21 12:00 Pulse Ox 95 09/14/21 12:00 Pertinent Lab Results Pertinent Lab Results: Laboratory Tests 09/12/21 09/12/21 09/12/21 02:09 02:09 02:09 WBC 14.2 H RBC 4.54 L Hgb 15.0 Hct 43.5 MCV 95.8 MCH 33.0 MCHC 34.5 RDW 14.1 Plt Count 192 MPV 10.4 Immature Gran % (Auto) 0.4 Neut % (Auto) 85.1 H Lymph % (Auto) 9.5 L [place] % (Auto) 4.6 Eos % (Auto) 0.0 Baso % (Auto) 0.4 Lymph # (Auto) 1.4 [place] # (Auto) 0.7 Eos # (Auto) 0.0 Baso # (Auto) 0.1 Abs Immat Gran (auto) 0.06 H Absolute Neuts (auto) 12.1 H Absolute Nucleated RBC 0.000 Nucleated RBC % (auto) 0.0 PT 12.5 INR 1.1 APTT 32.4 Sodium 140 Potassium 3.6 Chloride 105 Carbon Dioxide 22 Anion Gap 17 BUN 20 H Creatinine 1.00 Estim Creat Clear Calc 66.9 Estimated GFR > 60 POC Glucose Random Glucose Not Reportable Fasting Glucose 143 H D Calcium 8.4 Total Bilirubin 0.8 AST 27 ALT 23 Alkaline Phosphatase 88 Total Protein 6.6 Albumin 3.4 L Urine Color Urine Appearance Urine pH Ur Specific [place] Urine Protein Urine Glucose (UA) Urine Ketones Urine Blood Urine Nitrite Ur Leukocyte Esterase Urine RBC Urine WBC Ur Squamous Epith Cells Urine Bacteria Urine Mucus COVID-19 ([facility]) COVID-19 Clin Com Blood Type Antibody Screen 09/12/21 09/12/21 09/12/21 02:09 03:25 09:27 WBC RBC Hgb Hct MCV MCH MCHC RDW Plt Count MPV Immature Gran % (Auto) Neut % (Auto) Lymph % (Auto) [place] % (Auto) Eos % (Auto) Baso % (Auto) Lymph # (Auto) [place] # (Auto) Eos # (Auto) Baso # (Auto) Abs Immat Gran (auto) Absolute Neuts (auto) Absolute Nucleated RBC Nucleated RBC % (auto) PT INR APTT Sodium Potassium Chloride Carbon Dioxide Anion Gap BUN Creatinine Estim Creat Clear Calc Estimated GFR POC Glucose Random Glucose Fasting Glucose Calcium Total Bilirubin AST ALT Alkaline Phosphatase Total Protein Albumin Urine Color YELLOW Urine Appearance CLEAR Urine pH 6.0 Ur Specific [place] >= 1.030 H Urine Protein 1+ H Urine Glucose (UA) NEG Urine Ketones 40 Urine Blood 3+ H Urine Nitrite NEG Ur Leukocyte Esterase NEG Urine RBC 30-49 H Urine WBC 1-4 Ur Squamous Epith Cells 1+ Urine Bacteria 2+ Urine Mucus 2+ COVID-19 ([facility]ALYS) Negative COVID-19 Clin Com See Note Blood Type O Negative Antibody Screen NEGATIVE 09/13/21 09/13/21 09/13/21 06:49 06:49 07:06 WBC 9.4 RBC 4.09 L Hgb 13.3 L Hct 39.8 L MCV 97.3 MCH 32.5 MCHC 33.4 RDW 14.2 Plt Count 144 L MPV 10.6 Immature Gran % (Auto) 0.7 H Neut % (Auto) 81.3 H Lymph % (Auto) 9.9 L [place] % (Auto) 7.6 Eos % (Auto) 0.0 Baso % (Auto) 0.5 Lymph # (Auto) 0.9 L [place] # (Auto) 0.7 Eos # (Auto) 0.0 Baso # (Auto) 0.1 Abs Immat Gran (auto) 0.07 H Absolute Neuts (auto) 7.6 Absolute Nucleated RBC 0.000 Nucleated RBC % (auto) 0.0 PT INR APTT Sodium 141 Potassium 3.8 Chloride 109 H Carbon Dioxide 27 Anion Gap 9 L BUN 10 Creatinine 0.77 Estim Creat Clear Calc 86.9 Estimated GFR > 60 POC Glucose 131 H Random Glucose Fasting Glucose 122 H Calcium 8.1 L Total Bilirubin AST ALT Alkaline Phosphatase Total Protein Albumin Urine Color Urine Appearance Urine pH Ur Specific [place] Urine Protein Urine Glucose (UA) Urine Ketones Urine Blood Urine Nitrite Ur Leukocyte Esterase Urine RBC Urine WBC Ur Squamous Epith Cells Urine Bacteria Urine Mucus COVID-19 ([facility]) COVID-19 Clin Com Blood Type Antibody Screen 09/14/21 09/14/21 05:14 05:14 WBC 10.3 RBC 3.56 L Hgb 11.6 L Hct 35.2 L MCV 98.9 H MCH 32.6 MCHC 33.0 RDW 14.6 Plt Count 141 L MPV 11.2 Immature Gran % (Auto) 0.6 H Neut % (Auto) 78.4 H Lymph % (Auto) 13.1 L [place] % (Auto) 7.5 Eos % (Auto) 0.1 Baso % (Auto) 0.3 Lymph # (Auto) 1.4 [place] # (Auto) 0.8 Eos # (Auto) 0.0 Baso # (Auto) 0.0 Abs Immat Gran (auto) 0.06 H Absolute Neuts (auto) 8.1 Absolute Nucleated RBC 0.000 Nucleated RBC % (auto) 0.0 PT INR APTT Sodium 144 Potassium 3.8 Chloride 110 H Carbon Dioxide 25 Anion Gap 13 BUN 13 Creatinine 0.99 Estim Creat Clear Calc 67.6 Estimated GFR > 60 POC Glucose Random Glucose Fasting Glucose 125 H Calcium 8.1 L Total Bilirubin AST ALT Alkaline Phosphatase Total Protein Albumin Urine Color Urine Appearance Urine pH Ur Specific [place] Urine Protein Urine Glucose (UA) Urine Ketones Urine Blood Urine Nitrite Ur Leukocyte Esterase Urine RBC Urine WBC Ur Squamous Epith Cells Urine Bacteria Urine Mucus COVID-19 ([facility]) COVID-19 Clin Com Blood Type Antibody Screen Airway Mallampati Class: IV TM Dist: >3cm Neck ROM: Limited Loose/Missing/Broken Teeth: Yes Heart: RRR Assessment and Plan Assessment Anesthesia Assessment: Anesthesia Plan Discussed (with sister/HCP) Final Anesthetic Review Family History of Problems with Anesthesia: No History of Problems with Anesthesia: No NPO: Yes ASA Class: III Final Preanesthetic Review: No Changes in Pt Med Stat, Meds/Allgs Chart Reviewed, Consent Obtained/Reviewed and Anes Risks/Benef Reviewed Patient Risk: Intermediate Procedure Risk: Intermediate Anesthetic Plan Anesthetic Plan: GA (backup) and Spinal Disposition: Standard PACU
--- NOTE | 2021-10-19 13:59 | P.OP_ITS ---
Operative Note Operative Note Date of Service: 10/19/21 Narrative: Pre-op diagnosis: left hip IT fx Post-op diagnosis: same Procedure: Left hip cephalomedullary nail Implants: [place] [id number] 125 deg with 105 mm hip screw Surgeon: Mj Khalil MD Anesthesia: GETA and local Was an Certified Public Accountant used for this Procedure?: Yes Certified Public Accountant: Radhika Juan Estimated blood loss (mL): 200 IV fluids (mL): 1,000 Pathology: none sent Condition: stable Disposition: PACU Procedure in detail: Patient was brought to the operating room and prepped and draped in standard sterile fashion. Time-out was called to identify proper site procedure proper surgeon and IV antibiotics per weight were administered. She was positioned on the fracture table and a traction and slight internal rotation were performed and biplanar fluoroscopy confirmed initial fracture reduction. I then made a stab incision proximal to the greater trochanter in using a guidewire made a entry point just lateral to the tip of the greater trochanter and placed a guidewire into the femoral metadiaphysis. I then over-reamed with 15 mm Reamer placed my ball-tip guidewire down distally in the femur and measured my length. I selected a [id number] nail and reamed up to a 13. I then placed a the nail. I then turned my attention to the hip screw where I used a guidewire and a tip apex distance of less than 1.5 measured my hip screw. I then pre drilled and placed a 105mm hip screw using biplanar fluoroscopy. Once I was happy with the position of the hip screw I turned my attention to the distal aspect of the nail. I was satisfied with the hardware placement and the frture stability. Final biplanar radiographs were taken. I was satisfied with the position of the hardware and the fracture reduction. I think copiously irrigated closed with absorbable sutures temitope and injected 30 mL of into the area of the incisions. Traction was let down patient was placed in sterile dressing awakened from anesthesia brought to recovery room stable condition there were no known complications.
== END 2021-09-14 14:13 | disposition skilled nursing facility (03) | DRG 480 ==
LOC: HO.ED 09-12 08:06 → HO.EDOVER 09-12 09:26 → HO.S3 09-12 15:45
PROVIDERS: Emergency Medicine Emergency Medical Services; Orthopaedic Surgery; Physician Assistant Medical; Admitting Provider Physician Assistant; Emergency Provider Emergency Medicine Emergency Medical Services; PCP Internal Medicine; Visit Provider Physician Assistant
PROC: 0QS736Z Reposition Left Upper Femur with Intramedullary Internal Fixation Device, Percutaneous Approach (ICD-10-PCS; principal; 2021-09-13 14:50)
DX: S72.142A Displaced intertrochanteric fracture of left femur, initial encounter for closed fracture (principal); J18.9 Pneumonia, unspecified organism; D72.829 Elevated white blood cell count, unspecified; W01.0XXA Fall on same level from slipping, tripping and stumbling without subsequent striking against object, initial encounter; Y92.009 Unspecified place in unspecified non-institutional (private) residence as the place of occurrence of the external cause; Z20.822 Contact with and (suspected) exposure to COVID-19; R00.0 Tachycardia, unspecified; Q90.9 Down syndrome, unspecified; G47.33 Obstructive sleep apnea (adult) (pediatric); I95.2 Hypotension due to drugs; T40.2X5A Adverse effect of other opioids, initial encounter; Y92.239 Unspecified place in hospital as the place of occurrence of the external cause; Z79.899 Other long term (current) drug therapy
CPT/HCPCS: 36415; 70450; 70486; 71045; 72125; 73502; 73551; 80048; 80053; 81001; 82947; 85025; 85610; 85730; 86850; 86900; 86901; 87635; 93005; 96361; 96374; 96375; 96376; 97162; 97165; 99285; C1713; C1769; J0456; J0690; J0696; J1650; J2250; J2270; J2370; J2405; J3010

== ENCOUNTER 2021-09-30 07:55 | Outpatient (REF) | payer MEDICARE, MEDICAID, SELFPAY ==
--- NOTE | ~2021-09-30 | XR_ITS ---
EXAMINATION: XR HIP, LEFT XR PELVIS CLINICAL INFORMATION: Left hip pain. COMPARISON: Left hip 09/12/2021. TECHNIQUE: AP pelvis and left hip 2 views. FINDINGS: AP PELVIS: The right hip joint space is normal. No fracture or dislocation involving the right hip or the pelvis. The SI joints spaces reduced with minimal sclerosis. LEFT HIP: There is an intramedullary femoral safia and a screw for an old healed comminuted subtrochanteric left femoral neck fracture. There is no callus formation seen yet. Compared to previous study there is a greater trochanter larger fracture fragment and a smaller fracture line in the proximal femur lateral cortex. However, there are hypertrophic bony changes in the surrounding soft tissues. XR/XR pelvis 1-2V IMPRESSION: Stabilized left intertrochanteric femoral fracture with intramedullary femoral safia and solitary screw. There are new fractures involving the left greater trochanter with displacement and slightly inferior proximal femoral cortical fracture. It was not seen previously. There is no dislocation. There is mild sacroiliitis bilateral SI joints. The right hip joint is maintained normal.
--- NOTE | ~2021-09-30 | XR_ITS ---
EXAMINATION: XR HIP, LEFT XR PELVIS CLINICAL INFORMATION: Left hip pain. COMPARISON: Left hip 09/12/2021. TECHNIQUE: AP pelvis and left hip 2 views. FINDINGS: AP PELVIS: The right hip joint space is normal. No fracture or dislocation involving the right hip or the pelvis. The SI joints spaces reduced with minimal sclerosis. LEFT HIP: There is an intramedullary femoral safia and a screw for an old healed comminuted subtrochanteric left femoral neck fracture. There is no callus formation seen yet. Compared to previous study there is a greater trochanter larger fracture fragment and a smaller fracture line in the proximal femur lateral cortex. However, there are hypertrophic bony changes in the surrounding soft tissues. XR/XR hip LT min 2V IMPRESSION: Stabilized left intertrochanteric femoral fracture with intramedullary femoral safia and solitary screw. There are new fractures involving the left greater trochanter with displacement and slightly inferior proximal femoral cortical fracture. It was not seen previously. There is no dislocation. There is mild sacroiliitis bilateral SI joints. The right hip joint is maintained normal.
== END 2021-09-30 07:56 | disposition home or self-care (01) ==
LOC: HO.HOSX 07:55
PROVIDERS: Visit Provider Physician Assistant
DX: S72.002D Fracture of unspecified part of neck of left femur, subsequent encounter for closed fracture with routine healing (principal)
CPT/HCPCS: 72170; 73502; 99212

== ENCOUNTER 2021-11-03 08:50 | Outpatient (REF) | payer MEDICARE, MEDICAID, SELFPAY ==
--- NOTE | ~2021-11-03 | XR_ITS ---
EXAMINATION: XR PELVIS XR HIP, LEFT CLINICAL INFORMATION: Left hip pain. COMPARISON: Pelvic and left hip radiographs dated 09/30/2021. TECHNIQUE: AP view of the pelvis as well as AP and crosstable lateral views of the left hip. FINDINGS: Pelvis: No acute pelvic fracture. No dislocation. Phleboliths within the pelvis. No concerning lytic or blastic osseous lesion. Left Hip: Redemonstration of a comminuted intertrochanteric fracture with a femoral intramedullary safia and dynamic hip screw. No hardware fracture or perihardware lucency to suggest loosening or infection. There appears to be slight interval improvement in anatomic alignment of the fracture fragments with significant new bone/callus formation when compared to the prior radiographs. No dislocation. Phleboliths within the pelvis. XR/XR hip LT min 2V IMPRESSION: Redemonstration of a comminuted left hip fracture with associated ORIF. Slight interval improvement in anatomic alignment of the fracture with significant new bone/callus formation. No evidence of hardware complication.
--- NOTE | ~2021-11-03 | XR_ITS ---
EXAMINATION: XR PELVIS XR HIP, LEFT CLINICAL INFORMATION: Left hip pain. COMPARISON: Pelvic and left hip radiographs dated 09/30/2021. TECHNIQUE: AP view of the pelvis as well as AP and crosstable lateral views of the left hip. FINDINGS: Pelvis: No acute pelvic fracture. No dislocation. Phleboliths within the pelvis. No concerning lytic or blastic osseous lesion. Left Hip: Redemonstration of a comminuted intertrochanteric fracture with a femoral intramedullary safia and dynamic hip screw. No hardware fracture or perihardware lucency to suggest loosening or infection. There appears to be slight interval improvement in anatomic alignment of the fracture fragments with significant new bone/callus formation when compared to the prior radiographs. No dislocation. Phleboliths within the pelvis. XR/XR pelvis 1-2V IMPRESSION: Redemonstration of a comminuted left hip fracture with associated ORIF. Slight interval improvement in anatomic alignment of the fracture with significant new bone/callus formation. No evidence of hardware complication.
== END 2021-11-03 08:51 | disposition home or self-care (01) ==
LOC: HO.HOSX 08:50
PROVIDERS: Visit Provider Physician Assistant
DX: M25.552 Pain in left hip (principal)
CPT/HCPCS: 72170; 73502

== ENCOUNTER → 2021-12-07 13:29 | Outpatient (BNVA) | payer MEDICARE, MEDICAID, SELFPAY | PROVIDERS: PCP Internal Medicine; Visit Provider Internal Medicine | DX: G47.33 Obstructive sleep apnea (adult) (pediatric) (principal); E66.9 Obesity, unspecified; Q90.9 Down syndrome, unspecified; Z99.89 Dependence on other enabling machines and devices | CPT/HCPCS: 99212 ==

== ENCOUNTER 2021-12-28 07:49 | Outpatient (REF) | payer MEDICARE, MEDICAID, SELFPAY ==
--- NOTE | ~2021-12-28 | XR_ITS ---
EXAMINATION: PELVIS AND LEFT HIP X-RAY CLINICAL INFORMATION: Fracture COMPARISON: Previous x-ray most recent October 2021 TECHNIQUE: One view of the pelvis and one view of the left hip FINDINGS: There is an intramedullary safia and compression/lag screw seen in the left proximal femur. The distal end of the safia is not imaged. There is a left femoral intertrochanteric fracture that appears unchanged. Fracture line still seen. There is surrounding bony callus formation that appears unchanged. Alignment appears unchanged. The hip joints are normal. Bones of the pelvis are normal. There are degenerative changes of the lower lumbar spine. Soft tissues are normal. XR/XR pelvis 1-2V IMPRESSION: ORIF of left femoral intertrochanteric fracture. Fracture appears unchanged from most recent exam October 2021.
--- NOTE | ~2021-12-28 | XR_ITS ---
EXAMINATION: PELVIS AND LEFT HIP X-RAY CLINICAL INFORMATION: Fracture COMPARISON: Previous x-ray most recent October 2021 TECHNIQUE: One view of the pelvis and one view of the left hip FINDINGS: There is an intramedullary safia and compression/lag screw seen in the left proximal femur. The distal end of the safia is not imaged. There is a left femoral intertrochanteric fracture that appears unchanged. Fracture line still seen. There is surrounding bony callus formation that appears unchanged. Alignment appears unchanged. The hip joints are normal. Bones of the pelvis are normal. There are degenerative changes of the lower lumbar spine. Soft tissues are normal. XR/XR hip LT min 2V IMPRESSION: ORIF of left femoral intertrochanteric fracture. Fracture appears unchanged from most recent exam October 2021.
== END 2021-12-28 07:50 | disposition home or self-care (01) ==
LOC: HO.HOSX 07:49
PROVIDERS: Visit Provider Physician Assistant
DX: M25.552 Pain in left hip (principal); S72.142A Displaced intertrochanteric fracture of left femur, initial encounter for closed fracture; X58.XXXA Exposure to other specified factors, initial encounter; Y93.9 Activity, unspecified; Y92.9 Unspecified place or not applicable; Y99.8 Other external cause status
CPT/HCPCS: 72170; 73502; 99212

== ENCOUNTER 2022-01-18 13:19 | Outpatient (REF) | payer MEDICARE, MEDICAID, SELFPAY | END 2022-01-18 13:20 | disposition home or self-care (01) | LOC: HO.HAP 13:19 | PROVIDERS: Visit Provider Internal Medicine | DX: Z46.1 Encounter for fitting and adjustment of hearing aid (principal); H90.3 Sensorineural hearing loss, bilateral | CPT/HCPCS: 92593 ==

== ENCOUNTER 2022-01-25 08:58 | Outpatient (REF) | payer MEDICARE, MEDICAID, SELFPAY ==
--- NOTE | ~2022-01-25 | XR_ITS ---
EXAMINATION: XR CERVICAL SPINE CLINICAL INFORMATION: Rule out C4-C5 subluxation COMPARISON: Previous cervical spine CT August 2021 TECHNIQUE: AP lateral swimmer's and odontoid views of the cervical spine FINDINGS: Visualization of the lower cervical spine is limited. The C1-C4 vertebral bodies are visualized. There is 5 mm anterior subluxation of C4 with respect to C5. This is seen anteriorly only and does not appear appreciably changed from previous cervical spine CT scan. This is not visualized posteriorly. Bone alignment is otherwise normal. There are degenerative changes at the C1 dens articulation. There are degenerative changes at the facet joints. Prevertebral soft tissues are normal. XR/XR cervical spine 3V IMPRESSION: Very limited incomplete exam. The lower cervical spine is not visualized. There is a 5 mm anterior subluxation of C4 with respect to C5 that is similar to previous CT scan. The lower cervical spine is not evaluated.
== END 2022-01-25 08:59 | disposition home or self-care (01) ==
LOC: HO.HMGCX 08:58
PROVIDERS: PCP Internal Medicine; Visit Provider Internal Medicine
DX: S13.150A Subluxation of C4/C5 cervical vertebrae, initial encounter (principal); I95.9 Hypotension, unspecified; Q90.9 Down syndrome, unspecified; X58.XXXA Exposure to other specified factors, initial encounter; Y93.9 Activity, unspecified; Y92.9 Unspecified place or not applicable; Y99.9 Unspecified external cause status
CPT/HCPCS: 72040

== ENCOUNTER 2022-01-31 08:44 | Emergency (ER) | payer MEDICARE, MEDICAID, SELFPAY ==
--- NOTE | ~2022-01-31 | XR_ITS ---
EXAMINATION: XR CHEST CLINICAL INFORMATION: Chest pain. COMPARISON: 09/13/2021 chest radiograph. TECHNIQUE: 2 views of the chest were obtained. FINDINGS: No significant abnormality is noted involving the heart, lungs, mediastinum, bony thorax or soft tissues. XR/XR chest 2V IMPRESSION: No acute cardiopulmonary process.
[2022-01-31 08:47] VITALS: BP 107/57; PULSE 85; RESP 18; TEMP 36.6; O2SAT 99; BMI 30.7
--- NOTE | 2022-01-31 08:50 | ECG_ITS ---
Test Reason : chest pain Blood Pressure : / mmHG Vent. Rate : 079 BPM Atrial Rate : 079 BPM P-R Int : 142 ms QRS Dur : 104 ms QT Int : 400 ms P-R-T Axes : 051 -12 033 degrees QTc Int : 458 ms Normal sinus rhythm RSR' or QR pattern in V1 suggests right ventricular conduction delay Borderline ECG When compared with ECG of 12-SEP-2021 13:04, RSR' pattern in V1 has replaced Right bundle branch block Referred By: Generic ED Physician Electronically Signed By:KAPIL MCCRAY MD
[2022-01-31 08:55] VITALS: BP 113/77; PULSE 84; RESP 11; O2SAT 100
--- NOTE | 2022-01-31 08:58 | ED_ITS ---
HPI - Chest Pain General Chief Complaint: Chest Pain Stated Complaint: chest pain Time Seen by Provider: 01/31/22 08:57 Source: patient and other ( semiconductor testing group leader) Mode of arrival: wheelchair Limitations: other (Down's, dementia) History of Present Illness HPI narrative: 61-year-old male with a past medical history of obstructive sleep apnea, Down syndrome, dementia, obesity, pneumonia, and hypotension presents for 3 days of chest pain. States the pain is in his left upper chest and feels palpitations. States he feels short of breath. embroidery worker states patient has not used his CPAP machine for 2 weeks. He had some trouble with the tubing, the rubbed his right eye. She notes that he has been very tired. He is eating and drinking, no vomiting or diarrhea, no fevers, no cough, no sick contacts, no pain with peeing. Patient is vaccinated for COVID. Related Data Home Medications Medication Instructions Recorded Confirmed acetaminophen 325 mg tablet 650 mg PO Q6H PRN Pain 09/12/21 09/12/21 loratadine 10 mg tablet 1 tab PO DAILY 09/12/21 09/12/21 simvastatin 20 mg tablet 1 tab PO BEDTIME 09/12/21 09/12/21 fluoxetine 20 mg capsule 40 mg PO QAM 12/28/21 sulfacetamide sodium 10 % eye drops 0 drp ophthalmic (eye) 12/28/21 Previous Rx's Medication Instructions Recorded acetaminophen 325 mg tablet 650 mg PO Q6H 30 days #240 tabs 09/14/21 azithromycin 250 mg tablet 250 mg PO DAILY #3 tabs 09/14/21 cefuroxime axetil 500 mg tablet 500 mg PO BID #8 tabs 09/14/21 docusate sodium 100 mg capsule 100 mg PO BID 30 days #60 caps 09/14/21 enoxaparin 40 mg/0.4 mL 40 mg (0.4 mL) subcut Q24H 42 days 09/14/21 subcutaneous syringe #16.8 mL oxycodone 5 mg tablet 5 mg PO Q6H 7 days #28 tabs 09/14/21 aspirin 325 mg tablet 325 mg PO BID 4 weeks #56 tabs 09/30/21 Allergies Allergy/AdvReac Type Severity Reaction Status Date / Time latex Allergy Unknown Verified 12/28/21 10:42 Review of Systems Constitutional: Constitutional: Denies body ache(s), Denies chills, Denies fatigue, Denies fever(s), Denies headache(s) and Denies weakness Eyes: Eyes: Denies diplopia ENT: Denies dizziness, Denies otalgia, Denies headache(s), Denies post nasal drip, Denies sinus pain, Denies sinus pressure and Denies sore throat Cardiovascular: Cardiovascular: Reports chest pain, Denies syncope, Denies leg edema, Denies lightheadedness, Denies Loss of Consciousness, Denies palpitations and Reports dyspnea Respiratory: Respiratory: Denies chest congestion, Denies cough and Reports dyspnea Gastrointestinal: Gastrointestinal: Denies abdominal pain, Denies hematochezia, Denies constipation, Denies diarrhea, Denies nausea and Denies vomiting Genitourinary: Genitourinary: Reports no additional male genitourinary complaints Musculoskeletal: Musculoskeletal: Reports no additional musculoskeletal compl aints Integumentary/Breasts: Skin/Breast: Denies rash Neurologic: Denies confusion, Denies dizziness, Denies syncope, Denies headache(s) and Denies weakness Psychiatric: Psychiatric: Denies anxiety, Denies confusion and Denies depression Endocrine: Endocrine: Denies fatigue and Denies palpitations PMFSH Past Medical History Medical History Down syndrome Down syndrome Fall Hypotension CONY (obstructive sleep apnea) Social History Social History Household Members: Caregiver and Other Household Members Other:: skilled nursing Housing: Other Housing Other:: skilled nursing Do you presently have visiting nurse or other home services: Yes Alcohol intake: never Patient Tobacco Use Status: Never used Tobacco Advance Directives Date on File: 09/13/21 service: No Current occupational status: disabled 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 Physical Exam Vital Signs: Vital Signs: Last Vital Signs Temp 98 F 01/31/22 08:47 Pulse 84 01/31/22 08:55 Resp 11 L 01/31/22 08:55 BP 113/77 01/31/22 08:55 Pulse Ox 100 01/31/22 08:55 O2 Del Method 01/31/22 08:55 BMI result Body Mass Index 30.7 Const: General: no acute distress, alert and awake; No confusion Nutritional Appearance: obese Orientation/consciousness: No confusion Limitations: no limitations HEENT: Head: Yes normal to inspection, Yes normocephalic and Yes atraumatic Ears: hearing grossly normal bilaterally, external ears normal, TM's normal bilaterally and EAC's normal General nose exam: Normal external nose present Face and sinus: Yes normal facial exam and Yes sinuses nontender Mouth: Normal oral and palatal mucosa present Throat: Yes posterior oropharynx normal Eyes: Conjunctivae: conjunctivae normal Pupils: Equal, round and reactive pupils present EOM: EOMs intact bilaterally Neck: Neck: Yes full ROM, Yes no lymphadenopathy and Yes supple Resp: Effort & Inspection: normal respiratory effort and able to speak in complete sentences Auscultation: clear to auscultation bilaterally, no crackles, no rales, no rhonchi and no wheezes Cardio: Rate: regular rate Rhythm: regular rhythm Heart sounds: S1 normal heart sound present and S2 normal heart sound present GI: Inspection: Yes Abdominal panniculus present and Yes obesity Palpation (GI): Soft to palpation, nontender, no guarding and not rigid Percussion: Yes normal to percussion Auscultation: normal bowel sounds Skin: General skin exam: no rashes or lesions noted Neuro: General: No confusion Cranial nerves: Yes Equal, round and reactive pupils present Extrem: General: Yes normal to inspection and Yes full ROM Psych: Appearance: grossly normal Affect: normal affect Attitude: cooperative Thought process: Normal thought process present Course Course Course Narrative: 61-year-old male presents for 3 days of chest pain. Patient lives at a long-term and is here with his semiconductor testing group leader. Patient has obstructive sleep apnea, obesity, Down syndrome, dementia. Patient is afebrile, heart rate is in the 80s, satting 100% on room air. Patient scores a 0 on the Wells score. Patient's initial troponin is 3.5, will repeat at the 3 hour maryuri. EKG shows no acute ischemia labs are otherwise unremarkable. Gave patient Tylenol. Awaiting chest x-ray and urine. Am testing for COVID. Reevaluation(s) Reevaluation #1: on reexamination, patient's chest pain has resolved completely with the Tylenol. Repeat troponin is undetectable. Urine is negative, chest x-ray is negative, patient does not have COVID. Counseled worker from long-term to give patient Tylenol, again, his chest pain has resolved completely. Will refer to religious educator for readjustment and concerns for CPAP use. Give return precautions of worsening chest pain, shortness of breath, any new or concerning symptoms. MDM - Chest Pain Lab Data Result diagrams: 01/31/22 09:18 01/31/22 09:18 Labs: Lab Results 01/31/22 01/31/22 01/31/22 Range/Units 09:18 09:18 09:18 WBC 5.9 (4.8-10.8) X10*3/uL RBC 4.52 L D (4.60-5.80) X10*6/uL Hgb 14.2 D (14.0-18.0) g/dl Hct 42.9 D (42.0-52.0) % MCV 94.9 (80.0-98.0) fL MCH 31.4 (27.0-33.0) pg MCHC 33.1 (31.0-36.0) g/dl RDW 15.4 (11.0-16.0) % Plt Count 208 D (160-400) X10*3/uL MPV 9.9 (9.4-12.4) fL Immature Gran % (Auto) 0.2 (0.0-0.4) % Neut % (Auto) 55.8 (45-73) % Lymph % (Auto) 30.0 (20-40) % [place] % (Auto) 11.5 H (2-11) % Eos % (Auto) 1.2 (0-4) % Baso % (Auto) 1.3 (0-2) % Lymph # (Auto) 1.8 (1.2-4.9) X10*3/uL [place] # (Auto) 0.7 (0.1-1.2) X10*3/uL Eos # (Auto) 0.1 (0.0-0.4) X10*3/uL Baso # (Auto) 0.1 (0.0-0.2) X10*3/uL Abs Immat Gran (auto) 0.01 (0.00-0.03) X10*3/uL Absolute Neuts (auto) 3.3 (2.0-8.3) x10*3/uL Absolute Nucleated RBC 0.000 (0.0-0.012) X10*3/uL Nucleated RBC % (auto) 0.0 (0.0-0.2) /100WBC Sodium 138 (135-145) mmol/L Potassium 4.2 (3.3-5.1) mmol/L Chloride 103 (96-108) mmol/L Carbon Dioxide 29 (22-29) mmol/L Anion Gap 10 L (12-20) BUN 17 H (9-16) mg/dL Creatinine 0.85 (0.5-1.4) mg/dL Estim Creat Clear Calc 93.2 Estimated GFR > 60 Random Glucose 85 (60-115) mg/dL Calcium 8.3 L (8.4-10.2) mg/dL Total Bilirubin 0.5 (0.0-1.0) mg/dL AST 19 (5-37) U/L ALT 15 (0-40) U/L Alkaline Phosphatase 132 H D (39-117) U/L Troponin I High Sens < 3.5 (<3.5-35.0) ng/L Total Protein 6.5 (6.5-8.0) g/dL Albumin 3.2 L (3.5-5.0) g/dL Urine Color Urine Appearance Urine pH (5.0-8.0) Ur Specific [place] (1.005-1.025) Urine Protein (NEG-TRACE) MG/DL Urine Glucose (UA) (NEG) MG/DL Urine Ketones (NEG) MG/DL Urine Blood (NEG) Urine Nitrite (NEG) Ur Leukocyte Esterase (NEG) COVID-19 (ODALYS) (Negative) COVID-19 Clin Com 01/31/22 01/31/22 01/31/22 Range/Units 10:35 10:59 12:22 WBC (4.8-10.8) X10*3/uL RBC (4.60-5.80) X10*6/uL Hgb (14.0-18.0) g/dl Hct (42.0-52.0) % MCV (80.0-98.0) fL MCH (27.0-33.0) pg MCHC (31.0-36.0) g/dl RDW (11.0-16.0) % Plt Count (160-400) X10*3/uL MPV (9.4-12.4) fL Immature Gran % (Auto) (0.0-0.4) % Neut % (Auto) (45-73) % Lymph % (Auto) (20-40) % [place] % (Auto) (2-11) % Eos % (Auto) (0-4) % Baso % (Auto) (0-2) % Lymph # (Auto) (1.2-4.9) X10*3/uL [place] # (Auto) (0.1-1.2) X10*3/uL Eos # (Auto) (0.0-0.4) X10*3/uL Baso # (Auto) (0.0-0.2) X10*3/uL Abs Immat Gran (auto) (0.00-0.03) X10*3/uL Absolute Neuts (auto) (2.0-8.3) x10*3/uL Absolute Nucleated RBC (0.0-0.012) X10*3/uL Nucleated RBC % (auto) (0.0-0.2) /100WBC Sodium (135-145) mmol/L Potassium (3.3-5.1) mmol/L Chloride (96-108) mmol/L Carbon Dioxide (22-29) mmol/L Anion Gap (12-20) BUN (9-16) mg/dL Creatinine (0.5-1.4) mg/dL Estim Creat Clear Calc Estimated GFR Random Glucose (60-115) mg/dL Calcium (8.4-10.2) mg/dL Total Bilirubin (0.0-1.0) mg/dL AST (5-37) U/L ALT (0-40) U/L Alkaline Phosphatase (39-117) U/L Troponin I High Sens < 3.5 (<3.5-35.0) ng/L Total Protein (6.5-8.0) g/dL Albumin (3.5-5.0) g/dL Urine Color YELLOW Urine Appearance CLEAR Urine pH 6.0 (5.0-8.0) Ur Specific [place] 1.010 (1.005-1.025) Urine Protein NEG (NEG-TRACE) MG/DL Urine Glucose (UA) NEG (NEG) MG/DL Urine Ketones NEG (NEG) MG/DL Urine Blood NEG (NEG) Urine Nitrite NEG (NEG) Ur Leukocyte Esterase NEG (NEG) COVID-19 (ODALYS) Negative (Negative) COVID-19 Clin Com See Note ECG Data ECG #1: Interpretation: sinus at a rate of 79, MD interval 142, QRS 104, QTC 458, normal axis, RSR pattern in V1, no ST depression or elevation, no T-wave abnormalities Discharge Plan Discharge Clinical Impression: Atypical chest pain Patient Disposition: Home, Self-Care Additional Instructions: You do not have COVID, your EKG was normal, your to cardiac enzymes were not elevated, all your labs were normal, your urine is not infected, your chest x- ray did not show any pathology. Please call Dr. Palacios, religious educator, at [phone]. I have referred you to him, but I would like you to call him as well for follow-up for CPAP use. Please take Tylenol as needed. Please call your primary care provider for follow-up appointment from today's emergency room visit. Please return to emergency room if you have any new or concerning symptoms, including chest pain, shortness of breath, fevers Prescriptions: No Action acetaminophen 325 mg tablet 650 mg PO Q6H PRN (Reason: Pain) simvastatin 20 mg tablet 1 tab PO BEDTIME loratadine 10 mg tablet 1 tab PO DAILY acetaminophen 325 mg Tablet 650 mg PO Q6H 30 Days Qty: 240 0RF docusate sodium 100 mg Capsule 100 mg PO BID 30 Days Qty: 60 0RF oxycodone 5 mg Tablet 5 mg PO Q6H 7 Days Qty: 28 0RF enoxaparin 40 mg/0.4 mL Syringe 40 mg subcut Q24H 42 Days Qty: 16.8 0RF cefuroxime axetil 500 mg tablet 500 mg PO BID Qty: 8 0RF azithromycin 250 mg tablet 250 mg PO DAILY Qty: 3 0RF aspirin 325 mg tablet 325 mg PO BID 28 Days Qty: 56 0RF fluoxetine 20 mg capsule 40 mg PO QAM sulfacetamide sodium 10 % drops 0 drp ophthalmic (eye) Referrals: Cori Palacios MD [Physician] -
[2022-01-31] MEDS: Acetaminophen 325 MG TABLET 975 MG PO (09:19)
[2022-01-31 09:30] LABS: MANUAL DIFF FLAG NO
[2022-01-31 09:32] LABS: Basophils Absolute Auto 0.1 X10*3/uL (0.0-0.2); Basophils Percent Auto 1.3 % (0-2); Eosinophils Absolute Auto 0.1 X10*3/uL (0.0-0.4); Eosinophils Percent Auto 1.2 % (0-4); Hematocrit 42.9 % (42.0-52.0); Hemoglobin 14.2 g/dl (14.0-18.0); Imm Gran Abs Auto 0.01 X10*3/uL (0.00-0.03); Imm Gran Pct Auto 0.2 % (0.0-0.4); Lymphocytes Absolute Auto 1.8 X10*3/uL (1.2-4.9); Mean Corpuscular HGB Conc 33.1 g/dl (31.0-36.0); Mean Corpuscular Hemoglobin 31.4 pg (27.0-33.0); Mean Corpuscular Volume 94.9 fL (80.0-98.0); Mean Platelet Volume 9.9 fL (9.4-12.4); Monocytes Absolute Auto 0.7 X10*3/uL (0.1-1.2); Monocytes Percent Auto 11.5 % (2-11); Neutrophils Absolute Auto 3.3 x10*3/uL (2.0-8.3); Neutrophils Percent Auto 55.8 % (45-73); Platelet Count 208 X10*3/uL (160-400); Red Blood Count 4.52 X10*6/uL (4.60-5.80); Red Cell Distribution Width 15.4 % (11.0-16.0); White Blood Count 5.9 X10*3/uL (4.8-10.8)
[2022-01-31 09:53] LABS: Alanine Aminotransferase 15 U/L (0-40); Albumin Level 3.2 g/dL (3.5-5.0); Alkaline Phosphatase 132 U/L (39-117); Anion Gap 10 (12-20); Aspartate Amino Transferase 19 U/L (5-37); Bilirubin Total 0.5 mg/dL (0.0-1.0); Blood Urea Nitrogen 17 mg/dL (9-16); Calcium 8.3 mg/dL (8.4-10.2); Carbon Dioxide 29 mmol/L (22-29); Chloride 103 mmol/L (96-108); Creatinine Clr Calc Pharmacy 93.2; Estimated Glomerular Filt Rate > 60; Glucose Random 85 mg/dL (60-115); Potassium 4.2 mmol/L (3.3-5.1); Sodium 138 mmol/L (135-145); Total Protein 6.5 g/dL (6.5-8.0)
[2022-01-31 10:00] LABS: Troponin-I High Sensitivity < 3.5 ng/L (<3.5-35.0)
--- NOTE | 2022-01-31 10:31 | PC.NURSE ---
Pt resting comfortably, denies pain at this time and does not appeart to be in distress. waiting on test results. Pt needs are being met
[2022-01-31 11:03] LABS: COVID-19 Test Negative (Negative); IDNOW Serial# 08D9AD1C
[2022-01-31 11:05] LABS: Appearance Urine CLEAR; Color Urine YELLOW; Glucose Urine UA NEG (NEG); Leukocyte Esterase Urine NEG (NEG); Nitrite Urine NEG (NEG); Urine Blood NEG (NEG); Urine Ketones NEG (NEG); Urine Protein NEG (NEG-TRACE)
[2022-01-31 12:49] LABS: Troponin-I High Sensitivity < 3.5 ng/L (<3.5-35.0)
== END 2022-01-31 13:19 | disposition home or self-care (01) ==
PROVIDERS: Physician Assistant; Emergency Provider Emergency Medicine; PCP Internal Medicine
DX: R07.89 Other chest pain (principal); F03.90 Unspecified dementia, unspecified severity, without behavioral disturbance, psychotic disturbance, mood disturbance, and anxiety; R06.02 Shortness of breath; Z20.822 Contact with and (suspected) exposure to COVID-19; Z79.899 Other long term (current) drug therapy
CPT/HCPCS: 36415; 71046; 80053; 81003; 84484; 85025; 87635; 93005; 99283; 99284

== ENCOUNTER 2022-02-01 09:36 | Outpatient (REF) | payer MEDICARE, MEDICAID, SELFPAY ==
[2022-02-01 09:55] LABS: MANUAL DIFF FLAG NO
[2022-02-01 10:16] LABS: Basophils Absolute Auto 0.1 X10*3/uL (0.0-0.2); Basophils Percent Auto 1.7 % (0-2); Eosinophils Percent Auto 0.9 % (0-4); Hematocrit 45.6 % (42.0-52.0); Hemoglobin 14.8 g/dl (14.0-18.0); Imm Gran Abs Auto 0.02 X10*3/uL (0.00-0.03); Imm Gran Pct Auto 0.4 % (0.0-0.4); Lymphocytes Absolute Auto 1.5 X10*3/uL (1.2-4.9); Mean Corpuscular HGB Conc 32.5 g/dl (31.0-36.0); Mean Corpuscular Hemoglobin 31.2 pg (27.0-33.0); Mean Corpuscular Volume 96.2 fL (80.0-98.0); Mean Platelet Volume 10.1 fL (9.4-12.4); Monocytes Absolute Auto 0.4 X10*3/uL (0.1-1.2); Monocytes Percent Auto 7.9 % (2-11); Neutrophils Absolute Auto 2.6 x10*3/uL (2.0-8.3); Neutrophils Percent Auto 56.1 % (45-73); Platelet Count 219 X10*3/uL (160-400); Red Blood Count 4.74 X10*6/uL (4.60-5.80); Red Cell Distribution Width 15.5 % (11.0-16.0); White Blood Count 4.6 X10*3/uL (4.8-10.8)
[2022-02-01 10:54] LABS: Alanine Aminotransferase 16 U/L (0-40); Albumin Level 3.4 g/dL (3.5-5.0); Alkaline Phosphatase 145 U/L (39-117); Anion Gap 11 (12-20); Aspartate Amino Transferase 19 U/L (5-37); Bilirubin Total 0.6 mg/dL (0.0-1.0); Blood Urea Nitrogen 14 mg/dL (9-16); Calcium 8.7 mg/dL (8.4-10.2); Carbon Dioxide 30 mmol/L (22-29); Chloride 103 mmol/L (96-108); Cholesterol 187 mg/dL; Estimated Glomerular Filt Rate > 60; Glucose Random 98 mg/dL (60-115); Potassium 4.3 mmol/L (3.3-5.1); Sodium 140 mmol/L (135-145)
[2022-02-01 11:09] LABS: Cortisol Random 12.1 ug/dL
[2022-02-01 11:17] LABS: Free T4 (Free Thyroxine) 0.86 ng/dL (0.71-1.85); Thyroid Stimulating Hormone 1.78 uIU/mL (0.32-4.0)
[2022-02-02 15:56] LABS: Adrenocorticotropic Hormone 39 pg/mL (6-50)
[2022-02-03 14:17] LABS: TS Negative Control Passed; TS Panel A 0; TS Panel B 0; TS Positive Control Passed; TSpotTB Negative (Negative)
== END 2022-02-01 09:37 | disposition home or self-care (01) ==
LOC: HO.LAB 09:36
PROVIDERS: PCP Internal Medicine; Visit Provider Internal Medicine
DX: I95.9 Hypotension, unspecified (principal); Q90.9 Down syndrome, unspecified; M53.2X2 Spinal instabilities, cervical region
CPT/HCPCS: 36415; 80053; 82024; 82465; 82533; 84439; 84443; 85025; 86481

== ENCOUNTER 2022-02-08 11:53 | Outpatient (REF) | payer MEDICARE, MEDICAID, SELFPAY ==
--- NOTE | ~2022-02-08 | MM_ITS ---
EXAMINATION: BONE DENSITOMETRY CLINICAL INDICATION: Unspecified fracture of femur. COMPARISON: None (current study represents initial baseline exam). TECHNIQUE: Using a [employer] DXA System (software version: 13.1) manufactured by [employer], dual-energy x-ray absorptiometry was performed of the lumbar spine and right hip. Patient with history of left hip fracture. The images are of good technical quality. Summary results are attached. FINDINGS: AP SPINE L1-L4: There are multilevel degenerative changes lumbar spine which may cause overestimation lumbar bone mineral density. BMD 1.182 g/cm2, Z-score 0.3, T-score -0.3, normal. RIGHT FEMUR, NECK: BMD 0.671 g/cm2, Z-score -2.0, T-score -3.1, osteoporosis. RIGHT FEMUR, TOTAL: BMD 0.551 g/cm2, Z-score -3.2, T-score -3.8, osteoporosis. IDENTIFIED RISK FACTORS: History of fracture (adult). HISTORY OF FRACTURE: Hip, wrist. MEDICATIONS: None listed. MM/XR DEXA axial skeleton IMPRESSION: 1. DIAGNOSIS: Osteoporosis based on the lowest T-score value of -3.8 in the total femur applying World Health Organization criteria. 2. 10-YEAR FRACTURE RISK PREDICTION, FRAX: According to the guidelines, FRAX calculation should only be performed on patients in the osteopenia bone density category. Therefore, FRAX was not performed on this patient. 3. Treatment Recommendations: NOF guidelines recommend consideration for treatment in postmenopausal women and men age 50 and older presenting with the following: -A hip or vertebral (clinical or morphometric) fracture. -T-score less than or equal to -2.5 at the femoral neck or spine after appropriate evaluation to exclude secondary causes. -Low bone mass at the hip or spine and a 10-year fracture probability by FRAX of greater than or equal to 3% for hip fracture or greater than or equal to 20% for major osteoporotic fracture based on the [place] adapted WHO algorithm. 4. Other Recommendations: All treatment decisions require clinical judgment and consideration of individual patient factors, including patient preferences, comorbidities, previous drug use, risk factors not captured in the FRAX model (e.g. frailty, falls, vitamin D deficiency, increased bone turnover, interval significant decline in bone density) and possible under or overestimation of fracture risk by FRAX. Additional medical evaluation for secondary cause of low bone mineral density may be appropriate. FUTURE SCAN RECOMMENDATION: People with diagnosed cases of osteoporosis or at high risk for fracture should have regular bone mineral density tests. For patients eligible for Medicare, routine testing is allowed once every 2 years. The testing frequency can be increased to one year for patients who have rapidly progressing disease, those who are receiving or discontinuing medical therapy to restore bone mass, or have additional risk factors.
== END 2022-02-08 11:54 | disposition home or self-care (01) ==
LOC: HO.MAMMO 11:53
PROVIDERS: PCP Internal Medicine; Visit Provider Internal Medicine
DX: Z13.820 Encounter for screening for osteoporosis (principal); S72.91XA Unspecified fracture of right femur, initial encounter for closed fracture; X58.XXXA Exposure to other specified factors, initial encounter; Y93.9 Activity, unspecified; Y92.9 Unspecified place or not applicable; Y99.8 Other external cause status; Z87.81 Personal history of (healed) traumatic fracture
CPT/HCPCS: 77080

== ENCOUNTER 2022-02-15 10:41 | Outpatient (REF) | payer MEDICARE, MEDICAID, SELFPAY ==
--- NOTE | 2022-02-15 16:39 | MHC.AU.HFU ---
Hearing Instrument Follow-Up- Binaural Date of Visit: 02/15/22 Right Ear: [employer]rix Consultant: Joe Model: Osiel 1600 ITE-R Serial Number: [id number] Repair Warranty: 09/27/2023 Loss and Damage Warranty: 09/27/2023 Battery Size: Rechargeable Type of Wax Guard: HearClear Dispensed By: [facility] Date of Fittin09/29/2020 Left Ear: Citrix Consultant: Joe Model: Oseil 1600 ITE-R Serial Number: [id number] Repair Warranty: 09/27/2023 Loss and Damage Warranty: 09/27/2023 Battery Size: Rechargeable Type of Wax Guard: HearClear Dispensed By: [facility] Date of Fittin09/29/2020 Follow-Up Summary: Patient is accompanied by his group home paraprofessional. They forgot to bring the right hearing aid with them today, but decided to proceed with fitting the repair and return if having any problems . Fit the left repaired aid and ran feedback test. Computer prompted a firmware update, BUT DID NOT PERFORM. WILL PERFORM FIRMWARE UPDATE WHEN BOTH AIDS CAN BE UPDATED AT THE SAME TIME. Recommendations: Schedule appointment if any concerns Diagnosis Code(s):Primary Diagnosis: H90.3 Bilateral Sensorineural Hearing Loss Signature:Provider: Stevie Chung, PEDRO[facility]A
== END 2022-02-15 10:42 | disposition home or self-care (01) ==
LOC: HO.HAP 10:41
PROVIDERS: Visit Provider Internal Medicine
DX: Z13.89 Encounter for screening for other disorder (principal)

== ENCOUNTER → 2022-03-08 10:55 | Outpatient (BNVA) | payer MEDICARE, MEDICAID, SELFPAY | PROVIDERS: PCP Internal Medicine; Visit Provider Internal Medicine | DX: G47.33 Obstructive sleep apnea (adult) (pediatric) (principal); Q90.9 Down syndrome, unspecified; Z99.89 Dependence on other enabling machines and devices | CPT/HCPCS: 99212 ==

== ENCOUNTER → 2022-09-06 13:35 | Outpatient (BNVA) | payer MEDICARE, MEDICAID, SELFPAY | PROVIDERS: PCP Internal Medicine; Visit Provider Internal Medicine | DX: G47.33 Obstructive sleep apnea (adult) (pediatric) (principal); Q90.9 Down syndrome, unspecified; Z99.89 Dependence on other enabling machines and devices | CPT/HCPCS: 99212 ==

== ENCOUNTER 2022-09-18 09:26 | Outpatient (REF) | payer MEDICARE, MEDICAID, SELFPAY ==
--- NOTE | 2022-09-18 10:52 | MHC.AU.HA3 ---
Hearing Instrument Follow-Up- Binaural Date of Visit: 09/18/22 Right Ear: Song, Model, Color, Serial Number: Joe Cartagena 1600 ITE R SN: [id number] Color: [place] Metal Work Duct Installer Repair Warranty: 09/27/2023 Metal Work Duct Installer Loss and Damage Warranty: 09/27/2023 [facility] Service Plan: 09/29/2021 Battery Size: Rechargeable Type of Wax Guard: HearClear Dispensed By: [facility] Date of Fittin09/29/2020 Left Ear: Song, Model, Color, Serial Number: Joe Cartagena 1600 ITE R SN: [id number] Color: [place] Metal Work Duct Installer Repair Warranty: 09/27/2023 Metal Work Duct Installer Loss and Damage Warranty: 09/27/2023 [facility] Service Plan: 09/29/2021 Battery Size: Rechargeable Type of Wax Guard: HearClear Dispensed By: [facility] Date of Fittin09/29/2020 Follow-Up Summary: Tristin reported that his right hearing aid was dropped and is now cracked and not working. Cleaned both hearing aids and replaced wax guards. Left hearing aid working well; however, end of vent on faceplate side is cracked. Hearing aid is still functional and broken vent is not causing any discomfort. Right hearing aid is cracked in half and will not turn on - Needs to be sent out for repair. Tristin will use just his left hearing aid in the meantime. intermediate staff, Emily, knows that if left hearing aid starts to have issues with comfort, it can be sent out after the right hearing aid to have the vent repaired; otherwise, the left hearing aid can be used as is. Recommendations: An appointment should be scheduled when the right hearing aid is back from repair to reprogram both hearing aids to updated hearing evaluation. Both hearing aids also need firmware update. Diagnosis Code(s): Primary Diagnosis: H90.3 Bilateral Sensorineural Hearing Loss Signature: Provider: Lisa Rasmussen, [facility]
== END 2022-09-18 09:27 | disposition home or self-care (01) ==
LOC: HO.SH 09:26
PROVIDERS: Visit Provider Internal Medicine
DX: Z01.118 Encounter for examination of ears and hearing with other abnormal findings (principal); H90.3 Sensorineural hearing loss, bilateral
CPT/HCPCS: 92557; 92567; 92593; 99499

== ENCOUNTER 2022-10-04 12:12 | Outpatient (REF) | payer MEDICARE, MEDICAID, SELFPAY ==
--- NOTE | 2022-10-04 13:32 | MHC.AU.HA3 ---
Hearing Instrument Follow-Up- Binaural Date of Visit: 10/04/22 Right Ear: Make, Model, Color, Serial Number: Joe Cartagena 1600 ITE R SN: [id number] Color: [place] Wood Preparation Supervisor Repair Warranty: 09/27/2023 Wood Preparation Supervisor Loss and Damage Warranty: 09/27/2023 [facility] Service Plan: 09/29/2021 Battery Size: Rechargeable Type of Wax Guard: HearClear Dispensed By: [facility] Date of Fittin09/29/2020 Left Ear: Make, Model, Color, Serial Number: Joe Cartagena 1600 ITE R SN: [id number] Color: [place] Wood Preparation Supervisor Repair Warranty: 09/27/2023 Wood Preparation Supervisor Loss and Damage Warranty: 09/27/2023 [facility] Service Plan: 09/29/2021 Battery Size: Rechargeable Type of Wax Guard: HearClear Dispensed By: [facility] Date of Fittin09/29/2020 Follow-Up Summary: Tristin picked up his repaired right hearing aid. Both hearing aids were reprogrammed and the firmware was updated. Tristin noticed immediate improvement in office. Discussed broken vent in left hearing aid with accompanying staff, Franca. Advised if vent cracks further or becomes uncomfortable in any way, the left hearing aid should be dropped off to send out for repair. Recommendations: Hearing instrument maintenance in 6 months, or sooner if needed. Diagnosis Code(s): Primary Diagnosis: H90.3 Bilateral Sensorineural Hearing Loss Signature: Provider: Lisa Rasmussen, [facility]
== END 2022-10-04 12:13 | disposition home or self-care (01) ==
LOC: HO.HAP 12:12
PROVIDERS: Visit Provider Internal Medicine
DX: Z13.89 Encounter for screening for other disorder (principal)

== ENCOUNTER 2023-01-25 09:59 | Outpatient (REF) | payer MEDICARE, MEDICAID, SELFPAY ==
[2023-01-25 10:43] LABS: MANUAL DIFF FLAG NO
[2023-01-25 10:51] LABS: Basophils Absolute Auto 0.1 X10*3/uL (0.0-0.2); Basophils Percent Auto 1.9 % (0-2); Eosinophils Percent Auto 0.4 % (0-4); Hemoglobin 15.5 g/dl (14.0-18.0); Imm Gran Abs Auto 0.01 X10*3/uL (0.00-0.03); Imm Gran Pct Auto 0.2 % (0.0-0.4); Lymphocytes Absolute Auto 2.2 X10*3/uL (1.2-4.9); Lymphocytes Percent Auto 45.1 % (20-40); Mean Corpuscular HGB Conc 33.7 g/dl (31.0-36.0); Mean Corpuscular Hemoglobin 33.3 pg (27.0-33.0); Mean Corpuscular Volume 98.7 fL (80.0-98.0); Mean Platelet Volume 10.1 fL (9.4-12.4); Monocytes Absolute Auto 0.4 X10*3/uL (0.1-1.2); Monocytes Percent Auto 7.2 % (2-11); Neutrophils Absolute Auto 2.2 x10*3/uL (2.0-8.3); Neutrophils Percent Auto 45.2 % (45-73); Platelet Count 175 X10*3/uL (160-400); Red Blood Count 4.66 X10*6/uL (4.60-5.80); Red Cell Distribution Width 14.2 % (11.0-16.0); White Blood Count 4.8 X10*3/uL (4.8-10.8)
[2023-01-25 11:23] LABS: Appearance Urine Cloudy; Color Urine Yellow; Glucose Urine UA Negative (Negative); Leukocyte Esterase Urine Large (3+) (Negative); Nitrite Urine Positive (Negative); PH 6.5 (5.0-9.0); UMIC TRIGGER UACC YES; Urine Blood Small (1+) (Negative); Urine Ketones Negative (Negative); Urine Protein Negative (Neg-Trace)
[2023-01-25 11:36] LABS: Bacteria Urine 2+ (None Seen); Hyaline Casts Urine 0-2 /LPF (0-2); RBC Urine 0-2 /HPF (0-2); Squamous Epithelial Cell Urine >20 /HPF (0-2); UACC Culture Trigger YES; WBC Urine 0-5 /HPF (0-5)
[2023-01-25 12:00] LABS: Alanine Aminotransferase 22 U/L (0-40); Albumin Level 3.4 g/dL (3.5-5.0); Alkaline Phosphatase 101 U/L (39-117); Anion Gap 14 (12-20); Aspartate Amino Transferase 25 U/L (5-37); Bilirubin Total 0.8 mg/dL (0.0-1.0); Blood Urea Nitrogen 16 mg/dL (9-16); Calcium 8.9 mg/dL (8.4-10.2); Carbon Dioxide 29 mmol/L (22-29); Chloride 103 mmol/L (96-108); Cholesterol 175 mg/dL; Estimated Glomerular Filt Rate > 60; Glucose Random 86 mg/dL (60-115); HDL Cholesterol 49 mg/dL; LDL Cholesterol Calculated 115 mg/dl; Potassium 3.9 mmol/L (3.3-5.1); Sodium 142 mmol/L (135-145); Total Protein 7.2 g/dL (6.5-8.0); Triglycerides 56 mg/dL
[2023-01-25 12:01] LABS: Prostate Specific Antigen 0.26 ng/mL (<0.05-4.0)
[2023-01-28 01:12] LABS: TS Negative Control Passed; TS Panel A 0; TS Panel B 0; TS Positive Control Passed; TSpotTB Negative (Negative)
== END 2023-01-25 10:00 | disposition home or self-care (01) ==
LOC: HO.10HDL 09:59
PROVIDERS: Visit Provider Internal Medicine
DX: R30.0 Dysuria (principal); M10.9 Gout, unspecified; E78.00 Pure hypercholesterolemia, unspecified; Q90.9 Down syndrome, unspecified; Z12.5 Encounter for screening for malignant neoplasm of prostate
CPT/HCPCS: 36415; 80053; 80061; 81001; 81003; 84153; 85025; 86481; 87086

== ENCOUNTER → 2023-02-28 10:53 | Outpatient (REF) | payer MEDICARE, MEDICAID, SELFPAY ==
--- NOTE | 2023-02-28 11:00 | CA_ITS ---
Transthoracic Echocardiogram Patient (Last, First, Middle): Tristin Henao, Gender: Male Date of : 1960 Age: 62 Procedure Date: 02/28/2023 Procedure Type: Transthoracic Echocardiogram Location: OP Height: 154.94 cm Weight: 67.59 kg BSA: 1.67 m2 Heart Rate: bpm BP: 110 / 64 mmHg Radiological Technician: TO Referring MD: Torres Wheeler MD Symptoms: G20 PARKINSONS DISEASE Study Quality: Fair ECG Rhythm: Sinus Conclusions: - The left ventricular systolic function is normal. The visually estimated ejection fraction is between 55-60%. - No obvious valvular pathology seen on this study. Findings Procedure Information The study quality is limited by the patients inability to tolerate the test. Left Ventricle Normal left ventricular cavity size. There is normal left ventricular wall thickness. The left ventricular systolic function is normal. The visually estimated ejection fraction is between 55-60%. There is no evidence of regional wall motion abnormalities. Diastolic function is normal for age. Right Ventricle Normal right ventricular cavity size and systolic function. Atria Both atria are normal in size. Aortic Valve There is a normal trileaflet aortic valve. There is mild calcification of the aortic valve. There is no aortic valve stenosis. There is no aortic valve regurgitation. Mitral Valve The mitral valve appears normal. There is no mitral valve regurgitation. There is no mitral valve stenosis. Pulmonic Valve The pulmonic valve is likely normal. Tricuspid Valve There is no tricuspid valve regurgitation. Tricuspid regurgitation envelope is inadequate for calculation of right ventricular systolic pressure. Great Vessels The asc aorta is normal in size. Venous The inferior vena cava is normal in size and collapses greater than 50% with inspiration. Pericardium/Pleural There is no evidence of pericardial effusion. Prior Study Comparison No prior study available for comparison. Recommendations, Care & Conclusions No obvious valvular pathology seen on this study. Measurements 2D Linear Measurements IVSd: 0.90 0.6-0.9/0.6-1.0 cm LVIDd: 3.60 3.9-5.3/4.2-5.9 cm LVIDd Index: 2.16 2.4-3.2/2.2-3.1 cm/m2 LVIDs: 2.30 2.0-3.6 cm LVPWd: 0.80 0.7-1.1 cm LA Diam: 2.10 2.7-3.8/3.0-4.0 cm LAIDs Index: 1.26 1.5-2.3 cm/m2 LV Mass: 106.31 67-162/88-224 g LV Mass Index: 63.66 43-95/49-115 g/m2 LVOT Diam: 2.10 3.0+(-)1.3 cm 2D Systolic Function EF 4C: 62.20 >55% Mitral Valve MV Pk E: 0.76 MV PK A: 0.78 MV Decel Time: 200.00 E/A: 1.00 E'Lateral: 12.60 E'Medial: 7.72 E/E' Med: 9.80 E/E' Lat: 6.00 PHT: 59.00 MVA PHT: 3.73 Decel Adams: 3.79 Aortic Valve AoV Pk Amador: 1.18 AoV Mn Amador: 0.79 AoV VTI: 0.23 AoV Pk Grad: 6.00 Aov Mn Grad: 3.00 ALLEGRA Cont.VTI: 2.71 LVOT LVOT Pk Amador: 0.88 LVOT Mn Amador: 0.60 LVOT VTI: 0.18 LVOT Pk Grad: 3.00 LVOT Mn Grad: 2.00 LVOT Diam: 2.10 LVOT Area: 3.46 Diastolic Function MV Pk E: 0.76 MV Pk A: 0.78 E/A: 1.00 E'Medial: 7.72 E/E' Med: 9.80 E' Laterial: 12.60 E/E' Lat: 6.00 Right Ventricle TAPSE (mm): 19.40 TVS' Amador: 11.50 Tricuspid Valve RA Press: 3.00 Great Vessels Aorta Sinus of Valsalva: 3.20 2.0-3.5 cm Ao Asc: 2.50 2.1-3.4 cm Updated in Other Vendor System with Status of Final Francisco Schaefer MD electronically signed on 02/28/2023 3:56:12 PM with status of Final
== END ==
LOC: HO.CARD 10:53
PROVIDERS: PCP Internal Medicine; Visit Provider Internal Medicine
DX: G20 Parkinson's disease (principal)
CPT/HCPCS: 93306

== ENCOUNTER → 2023-02-28 11:00 | Outpatient (BNV) | payer MEDICARE, MEDICAID, SELFPAY | PROVIDERS: PCP Internal Medicine; Visit Provider Internal Medicine | DX: I35.8 Other nonrheumatic aortic valve disorders (principal) | CPT/HCPCS: 93306 ==

== ENCOUNTER 2023-03-07 11:36 | Outpatient (AMB) | payer MEDICARE, MEDICAID, SELFPAY ==
--- NOTE | 2023-03-07 11:39 | A.OFFVIS_ITS ---
Intake Vital Signs 03/07/23 11:41 Height 5 ft 5 in Weight 145 lb BMI 24.1 BP 100/60 Blood Pressure Location Lt brachial Position Sitting Pulse 89 Pulse Source Pulse Oximeter Pulse Oximetry (%) 98 Oxygen Delivery Method Room Air Intake Visit Reasons: Obstructive sleep apnea Intake Note: Patient states is here for CPAP Review Compliance Report. Allergies latex Allergy (Verified 03/07/23 11:43) Unknown Medication List - Last Reconciled 03/07/23 by Cori Palacios MD acetaminophen 650 mg PO Q6H PRN CPAP (CPAP Machine/Device) As directed docusate sodium 100 mg PO BID 30 days fluoxetine 40 mg PO QAM loratadine 1 tab PO DAILY simvastatin 1 tab PO BEDTIME HPI Obstructive sleep apnea HPI Details 62 years old very pleasant gentleman is a known case of Down's syndrome. He is known to have obstructive sleep apnea and is being treated with CPAP. Therapy. He remains very compliant and uses the CPAP device every night. Currently using nasal air as his interface. He denies any issues with the nasal air, and is happy with the use of CPAP. His compliance report indicates that he does have significant air leak issue, and is significant amount of residual Apneas . 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 Review of Systems Const All systems reviewed & are unremarkable except as noted in HPI and below Eyes Reports no additional complaints ENT Reports no additional complaints Card Denies chest pain, Denies irregular heart rhythm and Denies leg edema Resp Reports no additional complaints GI Reports no additional complaints Reports no additional complaints Musc Reports abnormal gait (Slightly unsteady) and Reports deformity (Deformed ankles and feet, also has deformities of the hand fingers.) Skin/Breast Reports system reviewed and no additional complaints, except as documented Neuro Reports abnormal gait (Slightly unsteady) Psych Details: Slow, not very conversant but pleasant Physical Exam Const General: comfortable, no acute distress, alert and awake Orientation/consciousness: patient oriented x3 HEENT Head: Yes normal to inspection General nose exam: No nasal polyps present and No nasal discharge present Face and sinus: Yes sinuses nontender Mouth: oropharynx normal Throat: Yes posterior oropharynx normal Eyes General: appearance normal, both eyes and all related structures Neck Neck: Yes normal visual inspection, Yes no lymphadenopathy, Yes trachea midline and Yes no JVD Thyroid: Thyroid normal Chest Chest palpation & inspection: normal inspection of the chest, normal palpation of entire chest wall and no tenderness Resp Effort & Inspection: normal respiratory effort Auscultation: clear to auscultation bilaterally, no crackles, no rhonchi and no wheezes Percussion: percussion normal Cardio Palpation: normal PMI Rate: regular rate Rhythm: regular rhythm Heart sounds: no gallops and no murmurs Peripheral pulses: Peripheral pulses 2+ throughout GI Palpation (GI): Soft to palpation, nontender, No hepatosplenomegaly present and no masses Auscultation: normal bowel sounds Back/Spine/Pelvis Thoracic/Lumbar Spine: thoracic and lumbar spine normal to inspection Skin General skin exam: no rashes or lesions noted Neuro General: patient oriented x3, No gait normal (Gait impaired he is mostly in the wheelchair) and no focal motor deficits Cranial nerves: Yes CN's II-XII intact bilaterally Extrem Other: incision clean dry and intact. [place] intact. No erythema or effusion. Calf supple nontender. Neurovascularly intact. General: Yes normal to inspection, Yes no clubbing, cyanosis or edema and Yes no calf tenderness Psych Speech and movement: Normal speech and movement present Results Reviewed Results Reviewed: Compliance report for the last 30 nights is reviewed USED 30/30 NIGHTS, 100%. AVERAGE USE PER NIGHT 7 HOURS 37 MINUTES. PRESSURE SET UP IS 6-20 CM AND HE IS USING MOSTLY 18-19 CM. MODERATE DEGREE OF AIR LEAK IS REPORTED, AND RESIDUAL AHI IS STILL 15.8 , I THINK THIS MAY BE DUE TO THE AIR LEAK ISSUE. Assessment & Plan Assessment & Plan (1) Down syndrome: Comment: Case of Down's syndrome, lives in intermediate, supervised by the staff. No behavior issues, he is very cooperative. Code(s): Q90.9 - Down syndrome, unspecified (2) CONY on CPAP: Comment: Patient has diagnosis of moderately severe obstructive sleep apnea. He uses CPAP very regularly, and is compliant, sleeps good. Air leak issue continues. He still has some residual AHI ( 15.8 ) PLAN : I think he would need full face mask, to fit his face, and the staff is instructed to keep the strap somewhat tight. Will recheck him in 3 months. Code(s): G47.33 - Obstructive sleep apnea (adult) (pediatric); Z99.89 - Dependence on other enabling machines and devices (3) Obesity (BMI 30.0-34.9): Comment: Moderately obese, with a round face and narrow oropharynx, conducive to obstructive sleep apnea. Because of his mental status and low level of physical activity a, he is not going to be able to lose much weight. Code(s): E66.9 - Obesity, unspecified Coding Level of Care Code Est Pt Level 3 (30662) Diagnoses Down syndrome Q90.9 CONY on CPAP G47.33; Z99.89 Obesity (BMI 30.0-34.9) E66.9
[2023-03-07 11:41] VITALS: BP 100/60; PULSE 89; O2SAT 98; BMI 24.1
== END 2023-03-07 11:56 | disposition home or self-care (01) ==
PROVIDERS: PCP Internal Medicine; Visit Provider Internal Medicine
DX: Q90.9 Down syndrome, unspecified (principal); G47.33 Obstructive sleep apnea (adult) (pediatric); Z99.89 Dependence on other enabling machines and devices; E66.9 Obesity, unspecified
CPT/HCPCS: 99213

== ENCOUNTER → 2023-03-07 11:36 | Outpatient (BNVA) | payer MEDICARE, MEDICAID, SELFPAY | PROVIDERS: PCP Internal Medicine; Visit Provider Internal Medicine | DX: G47.33 Obstructive sleep apnea (adult) (pediatric) (principal); E66.9 Obesity, unspecified; Q90.9 Down syndrome, unspecified; Z99.89 Dependence on other enabling machines and devices; Z68.24 Body mass index [BMI] 24.0-24.9, adult | CPT/HCPCS: 99212 ==

== ENCOUNTER 2023-03-13 15:48 | Outpatient (REF) | payer MEDICARE, MEDICAID, SELFPAY | END 2023-03-13 15:49 | disposition home or self-care (01) | LOC: HO.HAP 15:48 | PROVIDERS: Visit Provider Internal Medicine | DX: Z13.89 Encounter for screening for other disorder (principal) ==

== ENCOUNTER 2023-03-22 13:51 | Outpatient (REF) | payer MEDICARE, MEDICAID, SELFPAY | END 2023-03-22 13:52 | disposition home or self-care (01) | LOC: HO.HAP 13:51 | PROVIDERS: Visit Provider Internal Medicine | DX: Z13.89 Encounter for screening for other disorder (principal) ==

== ENCOUNTER 2023-03-22 14:37 | Outpatient (REF) | payer MEDICARE, MEDICAID, SELFPAY | END 2023-03-22 14:38 | disposition home or self-care (01) | LOC: HO.HAP 14:37 | PROVIDERS: Visit Provider Internal Medicine | DX: Z13.89 Encounter for screening for other disorder (principal) ==

== ENCOUNTER 2023-05-31 14:39 | Outpatient (REF) | payer MEDICARE, MEDICAID, SELFPAY | END 2023-05-31 14:40 | disposition home or self-care (01) | LOC: HO.HAP 14:39 | PROVIDERS: Visit Provider Internal Medicine | DX: Z13.89 Encounter for screening for other disorder (principal) ==

== ENCOUNTER 2023-06-06 11:27 | Outpatient (AMB) | payer MEDICARE, MEDICAID, SELFPAY ==
--- NOTE | 2023-06-06 11:29 | MHC.OFFVIS ---
Intake Vital Signs 06/06/23 11:35 Height 5 ft 5 in Weight 145 lb BMI 24.1 BP 102/58 L Blood Pressure Location Lt brachial Position Sitting Pulse 94 Pulse Source Pulse Oximeter Pulse Oximetry (%) 100 Oxygen Delivery Method Room Air Intake Visit Reasons: Obstructive sleep apnea Intake Note: pt is here for follow up and is using cpap at night, and sometimes it tends to fall off. Councilperson Required: No Allergies latex Allergy (Verified 06/06/23 11:56) Unknown Medication List - Last Reconciled 06/06/23 by Cori Palacios MD acetaminophen 650 mg PO Q6H PRN CPAP (CPAP Machine/Device) As directed docusate sodium 100 mg PO BID 30 days fluoxetine 40 mg PO QAM loratadine 1 tab PO DAILY simvastatin 1 tab PO BEDTIME Do you need a note to return to daycare/school/sports/work: No HPI Obstructive sleep apnea HPI Details THIS 63 YEARS OLD GENTLEMAN IS A CASE OF DOWN'S SYNDROME, MODERATE OBESITY, AND OBSTRUCTIVE SLEEP APNEA. HE LIVES IN A SHELTER, AND IS BROUGHT BY THE STAFF MEMBER. WALKS WITH A WALKER ,. SLOWLY HE DOES USE THE CPAP EVERY NIGHT. SOMETIME THE STRAPS IRRITATE HIS CHEEKS SO. HAD A HAS TO MAKE THEM LOOSE. SOMETIME THE MASK SLIPS OFF THE FACE DURING HIS SLEEP. BUT ON AN AVERAGE HE DOES KEEP THE MASK ON FOR ABOUT 7 HOURS. 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 Review of Systems Const All systems reviewed & are unremarkable except as noted in HPI and below Eyes Reports no additional complaints ENT Reports no additional complaints Card Denies chest pain, Denies irregular heart rhythm and Denies leg edema Resp Reports no additional complaints GI Reports no additional complaints Reports no additional complaints Musc Reports abnormal gait (Slightly unsteady) and Reports deformity (Deformed ankles and feet, also has deformities of the hand fingers.) Skin/Breast Reports system reviewed and no additional complaints, except as documented Neuro Reports abnormal gait (Slightly unsteady) Psych Details: Slow, not very conversant but pleasant Physical Exam Vital Signs: Last Vital Signs Pulse 94 06/06/23 11:35 Pulse Ox 100 06/06/23 11:35 Oxygen Delivery Method Room Air 06/06/23 11:35 BMI result Body Mass Index 24.1 Const General: comfortable, no acute distress, alert and awake Orientation/consciousness: patient oriented x3 HEENT Head: Yes normal to inspection General nose exam: No nasal polyps present and No nasal discharge present Face and sinus: Yes sinuses nontender Mouth: oropharynx normal Throat: Yes posterior oropharynx normal Eyes General: appearance normal, both eyes and all related structures Neck Neck: Yes normal visual inspection, Yes no lymphadenopathy, Yes trachea midline and Yes no JVD Thyroid: Thyroid normal Chest Chest palpation & inspection: normal inspection of the chest, normal palpation of entire chest wall and no tenderness Resp Effort & Inspection: normal respiratory effort Auscultation: clear to auscultation bilaterally, no crackles, no rhonchi and no wheezes Percussion: percussion normal Cardio Palpation: normal PMI Rate: regular rate Rhythm: regular rhythm Heart sounds: no gallops and no murmurs Peripheral pulses: Peripheral pulses 2+ throughout GI Palpation (GI): Soft to palpation, nontender, No hepatosplenomegaly present and no masses Auscultation: normal bowel sounds Back/Spine/Pelvis Thoracic/Lumbar Spine: thoracic and lumbar spine normal to inspection Skin General skin exam: no rashes or lesions noted Neuro General: patient oriented x3, No gait normal (Gait impaired he is mostly in the wheelchair) and no focal motor deficits Cranial nerves: Yes CN's II-XII intact bilaterally Extrem Other: incision clean dry and intact. [place] intact. No erythema or effusion. Calf supple nontender. Neurovascularly intact. General: Yes normal to inspection, Yes no clubbing, cyanosis or edema and Yes no calf tenderness Psych Speech and movement: Normal speech and movement present Results Reviewed Results Reviewed: COMPLIANCE REPORT FOR THE LAST 30 NIGHTS IS REVIEWED HE HAS USED 30/30 NIGHTS, 100%. AVERAGE USE PER NIGHT 7 HOURS 14 MINUTE. FOR ABOUT 5 NIGHTS HE USED LESS THAN 4 HOURS. THERE IS MODERATE AMOUNT OF AIR LEAK. AND RESIDUAL AHI IS RECORDED 21.9, MEANING THAT HIS CONY IS NOT FULLY CONTROLLED. Assessment & Plan Assessment & Plan (1) Down syndrome: Comment: Case of Down's syndrome, lives in fpc, supervised by the staff. No behavior issues, he is very cooperative and pleasant . Code(s): Q90.9 - Down syndrome, unspecified (2) Obesity (BMI 30.0-34.9): Comment: Moderately obese, with a round face and narrow oropharynx, typical for obstructive sleep apnea. Because of his mental status and low level of physical activity , he is not going to be able to lose much weight. Code(s): E66.9 - Obesity, unspecified (3) CONY on CPAP: Comment: Patient has diagnosis of moderately severe obstructive sleep apnea. He uses CPAP very regularly, and is compliant, sleeps good. Air leak issue continues. He still has some residual AHI ( 21.9 ) PLAN : Advised that he should continue to use full face mask, to fit his face, and the staff is instructed to keep the strap somewhat tight. Will recheck him in 6 months. Code(s): G47.33 - Obstructive sleep apnea (adult) (pediatric); Z99.89 - Dependence on other enabling machines and devices Coding Level of Care Code Est Pt Level 3 (45506) Diagnoses Down syndrome Q90.9 Obesity (BMI 30.0-34.9) E66.9 CONY on CPAP G47.33; Z99.89
[2023-06-06 11:35] VITALS: BP 102/58; PULSE 94; O2SAT 100; BMI 24.1
== END 2023-06-06 11:56 | disposition home or self-care (01) ==
PROVIDERS: PCP Internal Medicine; Visit Provider Internal Medicine
DX: Q90.9 Down syndrome, unspecified (principal); E66.9 Obesity, unspecified; G47.33 Obstructive sleep apnea (adult) (pediatric); Z99.89 Dependence on other enabling machines and devices
CPT/HCPCS: 99213

== ENCOUNTER → 2023-06-06 11:27 | Outpatient (BNVA) | payer MEDICARE, MEDICAID, SELFPAY | PROVIDERS: PCP Internal Medicine; Visit Provider Internal Medicine | DX: G47.33 Obstructive sleep apnea (adult) (pediatric) (principal); E66.9 Obesity, unspecified; Q90.9 Down syndrome, unspecified; Z68.24 Body mass index [BMI] 24.0-24.9, adult | CPT/HCPCS: 99212 ==

== ENCOUNTER 2023-06-19 22:51 | Emergency (ER) | payer MEDICARE, MEDICAID, SELFPAY ==
--- NOTE | ~2023-06-19 | CT_ITS ---
EXAMINATION: CT HEAD WITHOUT CONTRAST CLINICAL INFORMATION: New onset seizure. COMPARISON: 09/12/2021. TECHNIQUE: Contiguous axial imaging was performed from the skull base to vertex without intravenous administration of contrast. This CT examination was performed using dose optimization techniques as appropriate, variously including the following: *Automated exposure control *Adjustment of mA and/or kV according to patient size (this includes techniques or standardized protocols for targeted exams where dose is matched to indication/reason for exam; i.e. extremities or head) *Use of iterative reconstruction technique DLP: 661 mGy-cm FINDINGS: There is mild cerebral volume loss with prominence of the lateral and the third ventricles. The cortical sulci are widened appropriately. The fourth ventricle and basal cisterns are normally outlined. There is mild bilateral periventricular and central white matter diminished attenuation. There is bilateral white matter, basal ganglia and bilateral cerebellar calcifications similar to previous. There is no acute territorial defect, hemorrhage or midline shift. Calvarium: Intact. Maxillofacial sinuses and mastoids: Clear as visualized. CT/CT head/brain wo IV con IMPRESSION: No acute intracranial abnormality. No significant change.
[2023-06-19 23:04] VITALS: BP 110/75; PULSE 72; RESP 18; TEMP 36.9; O2SAT 100; BMI 29.1
--- NOTE | 2023-06-19 23:20 | ED.SEIZURE ---
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 the shower in the shower patient contacted his body and up rolled his eyes lasted for 10 seconds no seizure activity noticed but patient body was tensed and eyes was appropriate no tongue bite never had similar episode in the past Related Data Home Medications Medication Instructions Recorded Confirmed acetaminophen 325 mg tablet 650 mg PO Q6H PRN Pain 09/12/21 06/06/23 loratadine 10 mg tablet 1 tab PO DAILY 09/12/21 06/06/23 simvastatin 20 mg tablet 1 tab PO BEDTIME 09/12/21 06/06/23 fluoxetine 20 mg capsule 40 mg PO QAM 09/06/22 06/06/23 CPAP (CPAP Machine/Device) 03/07/23 06/06/23 Previous Rx's Medication Instructions Recorded docusate sodium 100 mg capsule 100 mg PO BID 30 days #60 caps 09/14/21 Allergies Allergy/AdvReac Type Severity Reaction Status Date / Time latex Allergy Unknown Verified 06/06/23 11:56 Review of Systems Review of Systems: Yes all other systems are reviewed and are negative PMFSH Past Medical History Medical History Down syndrome CONY on CPAP Hypotension Fall CONY (obstructive sleep apnea) Obesity (BMI 30.0-34.9) Down syndrome Down syndrome Social History Social History Household Members: Caregiver and Other Household Members Other:: nursing home Housing: Other Housing Other:: nursing home Do you presently have visiting nurse or other home services: Yes Alcohol intake: never Patient Tobacco Use Status: Never used Tobacco Advance Directives: Yes Advance Directives on File: Yes Advance Directives Date on File: 09/13/21 service: No Current occupational status: disabled 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 And awake at baseline. No acute distress. Down facies Eyes: PERRLA, No Nystagmus ENT: Pharynx normal. Oral Mucosa moist no tongue bite Neck: Normal inspection. Neck supple. CVS: Normal heart rate and rhythm. Pulses normal. Respiratory: No respiratory distress. Equal air entry bilateral, no wheezing/rales/rhonchi Abdomen: Soft and nontender. Bowel sounds are present, no mass palpable, no CVA tenderness Skin: Skin warm and dry. Normal skin color. Normal skin turgor. Extremities: No lower extremity edema. No calf tenderness Neuro: Alert and awake at baseline No motor deficit. No sensory deficit.No cerebellar signs , cranial nerves II-XII intact Medical Decision Making Medical Decision Making MDM Narrative: Patient with questionable increased tone with either up rolling no seizure activity noticed possible had a mild seizure CT scan head is negative patient advised to follow with PCP/neurologist if recurrence of similar episodes happen Differential Diagnosis Differential Diagnoses: The differential diagnosis associated with the presentation includes New onset seizure/brain tumor/brain bleed Independent Interpretation I performed an independent interpretation of an: CT Scan Radiology Impression Discussion of test interpretation with radiology: I have reviewed the radiologist's reading. Radiologist Impression: Negative CT scan Discharge Plan Discharge Clinical Impression: New onset seizure Patient Disposition: Home, Self-Care Instructions: New-Onset Seizure in Adults (ED) Additional Instructions: It is not clear whether patient had a seizure Possible patient had a generalized seizure which lasted only for few sec If patient has recurrence of the seizures patient need to follow up with neurologist/PCP Patient's CT scan head is negative for acute Prescriptions: No Action acetaminophen 325 mg tablet 650 mg PO Q6H PRN (Reason: Pain) simvastatin 20 mg tablet 1 tab PO BEDTIME loratadine 10 mg tablet 1 tab PO DAILY docusate sodium 100 mg Capsule 100 mg PO BID 30 Days Qty: 60 0RF fluoxetine 20 mg capsule 40 mg PO QAM (DME) CPAP Machine/Device Device See Rx Instructions .Route Rx Instructions: As directed Referrals: Jus Leslie MD [Physician] - 2 weeks
[2023-06-20] VITALS: BP 94/71; PULSE 69; RESP 16; O2SAT 97
== END 2023-06-20 01:18 | disposition home or self-care (01) ==
PROVIDERS: Emergency Provider Internal Medicine; PCP Internal Medicine
DX: R56.9 Unspecified convulsions (principal); Q90.9 Down syndrome, unspecified; G47.33 Obstructive sleep apnea (adult) (pediatric); Z99.89 Dependence on other enabling machines and devices; Z79.899 Other long term (current) drug therapy
CPT/HCPCS: 70450; 99284

== ENCOUNTER 2023-06-26 13:32 | Outpatient (REF) | payer MEDICARE, MEDICAID, SELFPAY | END 2023-06-26 13:33 | disposition home or self-care (01) | LOC: HO.HAP 13:32 | PROVIDERS: Visit Provider Internal Medicine | DX: Z13.89 Encounter for screening for other disorder (principal) ==

== ENCOUNTER 2024-03-05 07:54 | Outpatient (REF) | payer MEDICARE, MEDICAID, SELFPAY ==
[2024-03-05 10:16] LABS: MANUAL DIFF FLAG NO
[2024-03-05 10:20] LABS: Basophils Absolute Auto 0.1 X10*3/uL (0.0-0.2); Basophils Percent Auto 1.6 % (0-2); Eosinophils Absolute Auto 0.1 X10*3/uL (0.0-0.4); Eosinophils Percent Auto 1.4 % (0-4); Hematocrit 46.8 % (42.0-52.0); Imm Gran Abs Auto 0.01 X10*3/uL (0.00-0.03); Imm Gran Pct Auto 0.2 % (0.0-0.4); Lymphocytes Absolute Auto 1.7 X10*3/uL (1.2-4.9); Lymphocytes Percent Auto 34.1 % (20-40); Mean Corpuscular HGB Conc 34.2 g/dl (31.0-36.0); Mean Corpuscular Hemoglobin 33.3 pg (27.0-33.0); Mean Corpuscular Volume 97.3 fL (80.0-98.0); Mean Platelet Volume 10.6 fL (9.4-12.4); Monocytes Absolute Auto 0.4 X10*3/uL (0.1-1.2); Monocytes Percent Auto 8.3 % (2-11); Neutrophils Absolute Auto 2.7 x10*3/uL (2.0-8.3); Neutrophils Percent Auto 54.4 % (45-73); Platelet Count 204 X10*3/uL (160-400); Red Blood Count 4.81 X10*6/uL (4.60-5.80); Red Cell Distribution Width 14.4 % (11.0-16.0); White Blood Count 4.9 X10*3/uL (4.8-10.8)
[2024-03-05 11:09] LABS: Alanine Aminotransferase 20 U/L (0-40); Albumin Level 3.6 g/dL (3.5-5.0); Alkaline Phosphatase 107 U/L (39-117); Anion Gap 13 (12-20); Aspartate Amino Transferase 27 U/L (5-37); Bilirubin Total 0.7 mg/dL (0.0-1.0); Blood Urea Nitrogen 18 mg/dL (9-16); Calcium 9.5 mg/dL (8.4-10.2); Carbon Dioxide 29 mmol/L (22-29); Chloride 102 mmol/L (96-108); Cholesterol 183 mg/dL (<200); Estimated Glomerular Filt Rate > 60; Glucose Fasting 89 mg/dL (60-99); HDL Cholesterol 56 mg/dL (>40); LDL Cholesterol Calculated 114 mg/dL (<100); Potassium 4.1 mmol/L (3.3-5.1); Sodium 140 mmol/L (135-145); Total Protein 7.4 g/dL (6.5-8.0); Triglycerides 68 mg/dL (<150)
[2024-03-05 11:13] LABS: Prostate Specific Antigen 0.29 ng/mL (<0.05-4.0)
[2024-03-05 11:29] LABS: Vitamin D 25-OH Total 40.4 ng/mL (>30)
== END 2024-03-05 07:55 | disposition home or self-care (01) ==
LOC: HO.HMGCLDS 07:54
PROVIDERS: PCP Internal Medicine; Visit Provider Internal Medicine
DX: E78.00 Pure hypercholesterolemia, unspecified (principal); K21.9 Gastro-esophageal reflux disease without esophagitis; Z12.5 Encounter for screening for malignant neoplasm of prostate; G47.33 Obstructive sleep apnea (adult) (pediatric)
CPT/HCPCS: 36415; 80053; 80061; 82306; 84153; 85025

== ENCOUNTER 2024-07-16 11:18 | Outpatient (AMB) | payer MEDICARE, MEDICAID, SELFPAY ==
--- NOTE | 2024-07-16 11:24 | MHC.OFFVIS ---
Vital Signs 07/16/24 11:25 Height 5 ft 1 in BMI Reason not done Patient refused/unable BP 98/60 Blood Pressure Location Lt brachial Position Sitting Pulse 84 Pulse Source Pulse Oximeter Pulse Oximetry (%) 96 Oxygen Delivery Method Room Air Intake Visit Reasons: Obstructive sleep apnea Intake Note: pt is here for follow up and is doing well with cpap Torpedo Worker Required: No Allergies latex Allergy (Verified 07/16/24 11:46) Unknown Medication List - Last Reconciled 07/16/24 by Cori Palacios MD acetaminophen 650 mg PO Q6H PRN cholecalciferol (vitamin D3) 25 mcg PO DAILY CPAP (CPAP Machine/Device) As directed docusate sodium 100 mg PO BID 30 days famotidine-Ca carb-mag hydrox 10-800-165 mg (Pepcid Complete) 1 tab PO BID fluoxetine 30 mg PO QAM loratadine 1 tab PO DAILY minocycline 50 mg PO DAILY multivitamin (Daily Multi-Vitamin tablet) 1 tab PO DAILY simethicone (Gas Relief (simethicone)) 80 mg PO BEDTIME simvastatin 1 tab PO BEDTIME Do you need a note to return to daycare/school/sports/work: No HPI HPI Obstructive sleep apnea: Details: This 64 years old gentleman a case of down syndrome, moderate obesity and a round face with diagnosis of obstructive sleep apnea, was diagnosed to have CONY by a home-based sleep study in May 2021. He has been using CPAP very regularly since then. Recently the face mask was changed to a small Size which fits him better He lives in a halfway and is watched very closely . Compliance has been very good, and rapid does not complain any discomfort or daytime sleepiness. The problem is that he has had significant degree of residual sleep apnea. 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 Review of Systems Const All systems reviewed & are unremarkable except as noted in HPI and below Eyes Reports no additional complaints ENT Reports no additional complaints Card Denies chest pain, Denies irregular heart rhythm and Denies leg edema Resp Reports no additional complaints GI Reports no additional complaints Reports no additional complaints Musc Reports abnormal gait (Slightly unsteady) and Reports deformity (Deformed ankles and feet, also has deformities of the hand fingers.) Skin/Breast Reports system reviewed and no additional complaints, except as documented Neuro Reports abnormal gait (Slightly unsteady) Psych Details: Slow, not very conversant but pleasant Physical Exam Const General: comfortable, no acute distress, alert and awake Orientation/consciousness: patient oriented x3 HEENT Head: Yes normal to inspection General nose exam: No nasal polyps present and No nasal discharge present Face and sinus: Yes sinuses nontender Mouth: oropharynx normal Throat: Yes posterior oropharynx normal Eyes General: appearance normal, both eyes and all related structures Neck Neck: Yes normal visual inspection, Yes no lymphadenopathy, Yes trachea midline and Yes no JVD Thyroid: Thyroid normal Chest Chest palpation & inspection: normal inspection of the chest, normal palpation of entire chest wall and no tenderness Resp Effort & Inspection: normal respiratory effort Auscultation: clear to auscultation bilaterally, no crackles, no rhonchi and no wheezes Percussion: percussion normal Cardio Palpation: normal PMI Rate: regular rate Rhythm: regular rhythm Heart sounds: no gallops and no murmurs Peripheral pulses: Peripheral pulses 2+ throughout GI Palpation (GI): Soft to palpation, nontender, No hepatosplenomegaly present and no masses Auscultation: normal bowel sounds Back/Spine/Pelvis Thoracic/Lumbar Spine: thoracic and lumbar spine normal to inspection Skin General skin exam: no rashes or lesions noted Neuro General: patient oriented x3, No gait normal (Gait impaired he is mostly in the wheelchair) and no focal motor deficits Cranial nerves: Yes CN's II-XII intact bilaterally Extrem Other: incision clean dry and intact. [place] intact. No erythema or effusion. Calf supple nontender. Neurovascularly intact. General: Yes normal to inspection, Yes no clubbing, cyanosis or edema and Yes no calf tenderness Psych Speech and movement: Normal speech and movement present Results Reviewed Results Reviewed: Compliance report for the last 30 nights is reviewed and he has used /30 97% of the nights. Average use it per night 9 hours 4 minutes. Pressure used 16-18 cm. There is some air leak, maximum 52.7. Residual AHI 31.3, predominantly due to obstructive apneas, and some central apnea. Assessment & Plan Assessment & Plan (1) Down syndrome: Comment: Case of Down's syndrome, lives in halfway, supervised by the staff. No behavior issues, he is very cooperative and pleasant . Code(s): Q90.9 - Down syndrome, unspecified Category: Medical Plan: No further action on this (2) CONY on CPAP: Comment: Patient has diagnosis of severe obstructive sleep apnea. He uses CPAP very regularly, and is compliant, sleeps good. Air leak issue continues. With the new face mask of small size it should be taken care of. He still has some residual AHI ( 31.3) PLAN : Advised that he should continue to use full face mask, to fit his face, and the staff is instructed to keep the strap somewhat tight. * BECAUSE OF HIS ONGOING PROBLEM OF SIGNIFICANT RESIDUAL SLEEP APNEA, IN SPITE OF ADEQUATE USE OF THE CPAP, I THINK HE SHOULD HAVE A CPAP TITRATION STUDY IN THE SLEEP LAB. Code(s): G47.33 - Obstructive sleep apnea (adult) (pediatric); Z99.89 - Dependence on other enabling machines and devices Category: Medical Plan: EXPLAINED TO THE PATIENT AND THE STAFF FROM THE NURSING HOME. WILL GO AHEAD AND SCHEDULE A SLEEP STUDY IN THE SLEEP LAB FOR CPAP TITRATION. Orders: Orders RT PSG in-lab sleep titration Today E66.9 - Obesity, unspecified, G47.33 - Obstructive sleep apnea (adult) (pediatric), Q90.9 - Down syndrome, unspecified, Z99.89 - Dependence on other enabling machines and devices Coding Level of Care Code Est Pt Level 3 (66869) Diagnoses Down syndrome Q90.9 CONY on CPAP G47.33; Z99.89
[2024-07-16 11:25] VITALS: BP 98/60; PULSE 84; O2SAT 96
== END 2024-07-16 11:44 | disposition home or self-care (01) ==
PROVIDERS: PCP Internal Medicine; Visit Provider Internal Medicine
DX: Q90.9 Down syndrome, unspecified (principal); G47.33 Obstructive sleep apnea (adult) (pediatric); Z99.89 Dependence on other enabling machines and devices
CPT/HCPCS: 99213

== ENCOUNTER → 2024-07-16 11:18 | Outpatient (BNVA) | payer MEDICARE, MEDICAID, SELFPAY | PROVIDERS: PCP Internal Medicine; Visit Provider Internal Medicine | DX: G47.33 Obstructive sleep apnea (adult) (pediatric) (principal); Q90.9 Down syndrome, unspecified; Z99.89 Dependence on other enabling machines and devices | CPT/HCPCS: 99212 ==

== ENCOUNTER 2024-07-24 10:22 | Outpatient (REF) | payer MEDICARE, MEDICAID, SELFPAY ==
--- NOTE | 2024-07-24 11:19 | MHC.AU.HA3 ---
Hearing Instrument Follow-Up- Binaural Date of Visit: 07/24/24 Right Ear: Song, Model, Color, Serial Number: Joe Cartagena 1600 ITE R SN: [id number] Color: [place] Transcribing Operators Supervisor Repair Warranty: 09/27/2023 Transcribing Operators Supervisor Loss and Damage Warranty: 09/27/2023 [facility] Service Plan: 09/29/2021 Battery Size: Rechargeable Type of Wax Guard: HearClear Dispensed By: [facility] Date of Fittin09/29/2020 Left Ear: Song, Model, Color, Serial Number: Joe Cartagena 1600 ITE R SN: [id number] Color: [place] Transcribing Operators Supervisor Repair Warranty: 09/27/2023 Transcribing Operators Supervisor Loss and Damage Warranty: 09/27/2023 [facility] Service Plan: 09/29/2021 Battery Size: Rechargeable Type of Wax Guard: HearClear Dispensed By: [facility] Date of Fittin09/29/2020 Follow-Up Summary: Accompanied by Eugenia. They report Tristin is here for hearing screening and hearing aid check. Advised only scheduled for hearing aid check today, no referral for hearing test. Tristin reports no hearing aid problems at this time. Found left with occluded wax guard, right missing wax guard and circuit clerk port completely occluded. Cleaned aids. Replaced wax guard and catrachita cover left- listening check positive. Vacuumed out circuit clerk port and replaced catrachita cover right- hearing aid very weak. Sending right to solution lead for repair. Otoscopy reveals non occluding cerumen Au. Advised of need for referral to schedule hearing test. Recommendations: Recommendations: Patient will be contacted when materials have arrived. Recommendations (Other): Can greens picker aid without appointment as long as pairing of devices is not needed. Diagnosis Code(s): Primary Diagnosis: H90.3 Bilateral Sensorineural Hearing Loss Signature: Provider: Lisa Mantilla, [facility]
== END 2024-07-24 10:23 | disposition home or self-care (01) ==
LOC: HO.HAP 10:22
PROVIDERS: Visit Provider Internal Medicine
DX: Z46.1 Encounter for fitting and adjustment of hearing aid (principal); H90.3 Sensorineural hearing loss, bilateral
CPT/HCPCS: 92593; 99499

== ENCOUNTER → 2024-09-02 19:30 | Outpatient (REF) | payer MEDICARE, MEDICAID, SELFPAY | LOC: HO.SL 19:30 | PROVIDERS: PCP Internal Medicine; Visit Provider Internal Medicine | DX: G47.33 Obstructive sleep apnea (adult) (pediatric) (principal); R06.83 Snoring; E66.9 Obesity, unspecified; Q90.9 Down syndrome, unspecified; Z99.89 Dependence on other enabling machines and devices | CPT/HCPCS: 95811 ==

== ENCOUNTER → 2024-09-02 20:38 | Outpatient (BNV) | payer MEDICARE, MEDICAID, SELFPAY | PROVIDERS: PCP Internal Medicine; Visit Provider Internal Medicine | DX: G47.33 Obstructive sleep apnea (adult) (pediatric) (principal); Z99.89 Dependence on other enabling machines and devices | CPT/HCPCS: 95811 ==

== ENCOUNTER 2024-09-08 13:23 | Outpatient (REF) | payer MEDICARE, MEDICAID, SELFPAY | END 2024-09-08 13:24 | disposition home or self-care (01) | LOC: HO.HAP 13:23 | PROVIDERS: Visit Provider Internal Medicine | DX: Z46.1 Encounter for fitting and adjustment of hearing aid (principal) | CPT/HCPCS: V5014 ==

== ENCOUNTER 2024-09-24 15:44 | Outpatient (AMB) | payer MEDICARE, MEDICAID, SELFPAY ==
--- NOTE | 2024-09-24 15:45 | MHC.OFFVIS ---
Vital Signs 09/24/24 15:46 Height 5 ft 1 in BMI Reason not done Patient refused/unable BP 96/62 Blood Pressure Location Rt brachial Position Sitting Pulse 94 Pulse Source Pulse Oximeter Pulse Oximetry (%) 96 Oxygen Delivery Method Room Air Intake Visit Reasons: Obstructive sleep apnea Allergies latex Allergy (Verified 09/24/24 16:28) Unknown Medication List - Last Reconciled 09/24/24 by Cori Palacios MD acetaminophen 650 mg PO Q6H PRN cholecalciferol (vitamin D3) 25 mcg PO DAILY CPAP (CPAP Machine/Device) As directed docusate sodium 100 mg PO BID 30 days famotidine-Ca carb-mag hydrox 10-800-165 mg (Pepcid Complete) 1 tab PO BID fluoxetine 30 mg PO QAM loratadine 1 tab PO DAILY minocycline 50 mg PO DAILY multivitamin (Daily Multi-Vitamin tablet) 1 tab PO DAILY simethicone (Gas Relief (simethicone)) 80 mg PO BEDTIME simvastatin 1 tab PO BEDTIME Do you need a note to return to daycare/school/sports/work: No HPI HPI Obstructive sleep apnea: Details: HERIBERTO IS 64 YEARS OLD GENTLEMAN A KNOWN CASE OF DOWN SYNDROME, MODERATELY OBESE WHO HAS, SEVERE OBSTRUCTIVE SLEEP APNEA 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 HE HAS BEEN USING CPAP SINCE 2020. THE COMPLIANCE REPORT LATELY WAS SHOWING THAT HE STILL HAS RESIDUAL SLEEP APNEA. SO WE DECIDED TO DO CPAP TITRATION IN THE SLEEP LAB., WHICH WAS DONE ON 09/02/2024. HE REQUIRED RELATIVELY HIGH PRESSURE TO CONTROL HIS OBSTRUCTIVE EVENTS AND DESATURATION. FINALLY BILEVEL PRESSURES WERE USED AND OPTIMAL RESULTS OBTAINED WITH PRESSURE OF 25/20 CM. PATIENT TOLERATED THIS THERAPY WELL. AT THIS PRESSURE LEVEL THERE WERE NO RESIDUAL CENTRAL OR OBSTRUCTIVE EVENTS AND ALSO NO O2 DESATURATION. PATIENT HAS BEEN VERY COMPLIANT IN USING HIS PREVIOUS CPAP. HE IS A CASE OF DOWN SYNDROME WITH COGNITIVE WELL PHYSICAL IMPAIRMENT. AND GOES OUTDOORS MAINLY IN A WHEELCHAIR. HE IS SUPERVISED BY THE STAFF AT [facility] WHERE HE LIVES. 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 Review of Systems Const All systems reviewed & are unremarkable except as noted in HPI and below Eyes Reports no additional complaints ENT Reports no additional complaints Card Denies chest pain, Denies irregular heart rhythm and Denies leg edema Resp Reports no additional complaints GI Reports no additional complaints Reports no additional complaints Musc Reports abnormal gait (Slightly unsteady) and Reports deformity (Deformed ankles and feet, also has deformities of the hand fingers.) Skin/Breast Reports system reviewed and no additional complaints, except as documented Neuro Reports abnormal gait (Slightly unsteady) Psych Details: Slow, not very conversant but pleasant Physical Exam Vital Signs: Last Vital Signs Pulse 94 09/24/24 15:46 BP 96/62 09/24/24 15:46 Pulse Ox 96 09/24/24 15:46 Oxygen Delivery Method Room Air 09/24/24 15:46 Const General: comfortable, no acute distress, alert and awake Orientation/consciousness: patient oriented x3 HEENT Head: Yes normal to inspection General nose exam: No nasal polyps present and No nasal discharge present Face and sinus: Yes sinuses nontender Mouth: oropharynx normal Throat: Yes posterior oropharynx normal Eyes General: appearance normal, both eyes and all related structures Neck Neck: Yes normal visual inspection, Yes no lymphadenopathy, Yes trachea midline and Yes no JVD Thyroid: Thyroid normal Chest Chest palpation & inspection: normal inspection of the chest, normal palpation of entire chest wall and no tenderness Resp Effort & Inspection: normal respiratory effort Auscultation: clear to auscultation bilaterally, no crackles, no rhonchi and no wheezes Percussion: percussion normal Cardio Palpation: normal PMI Rate: regular rate Rhythm: regular rhythm Heart sounds: no gallops and no murmurs Peripheral pulses: Peripheral pulses 2+ throughout GI Palpation (GI): Soft to palpation, nontender, No hepatosplenomegaly present and no masses Auscultation: normal bowel sounds Back/Spine/Pelvis Thoracic/Lumbar Spine: thoracic and lumbar spine normal to inspection Skin General skin exam: no rashes or lesions noted Neuro General: patient oriented x3, No gait normal (Gait impaired he is mostly in the wheelchair) and no focal motor deficits Cranial nerves: Yes CN's II-XII intact bilaterally Extrem Other: incision clean dry and intact. [place] intact. No erythema or effusion. Calf supple nontender. Neurovascularly intact. General: Yes normal to inspection, Yes no clubbing, cyanosis or edema and Yes no calf tenderness Psych Speech and movement: Normal speech and movement present Results Reviewed Results Reviewed: CPAP TITRATION STUDY ON 09/02/2024 IS REVIEWED AND EXPLAINED TO THE PATIENT WELL HIS CASE WORKERS. HE REQUIRED FULLFACE MASK AND PRESSURE SETTING OF 25/20 CM. AT THIS LEVEL HE DID NOT NEED ANY OXYGEN Assessment & Plan Assessment & Plan (1) Down syndrome: Comment: Case of Down's syndrome, lives in assisted, supervised by the staff. No behavior issues, he is very cooperative and pleasant . Code(s): Q90.9 - Down syndrome, unspecified Category: Medical Plan: I HAD A GOOD CONVERSATION WITH THE STAFF MEMBERS FROM THE [facility] ABOUT THE FINDINGS OF SLEEP STUDY AND TREATMENT PLAN. (2) CONY on CPAP: Comment: Patient has diagnosis of severe obstructive sleep apnea. He uses CPAP very regularly, and is compliant, sleeps good. Air leak issue continues. With the new face mask of small size it should be taken care of. PATIENT HAD AIR LEAK ISSUE AND ALSO HIGH RESIDUAL AHI EVEN WITH OPTIMAL USE OF CPAP. THUS HE UNDERWENT CPAP TITRATION IN THE SLEEP LAB. NOTED ABOVE IN THE HISTORY IT TOOK BILEVEL PRESSURE OF 25/20 CM TO ALLEVIATE ALL OBSTRUCTIVE EVENTS AND O2 DESATURATIONS. Code(s): G47.33 - Obstructive sleep apnea (adult) (pediatric); Z99.89 - Dependence on other enabling machines and devices Category: Medical Plan: WILL SEND ORDER TO DME SUPPLIER TO GIVE HIM, NEW CPAP DEVICE WITH NEW SETTINGS OF BILEVEL PRESSURE 25/20 CM. USING FULLFACE MASK OF SMALL SIZE. HOPEFULLY PATIENT WOULD TOLERATE THIS SETTING. WILL BE RECHECKED IN 4-6 WEEKS TO GO OVER THE COMPLIANCE AND BENEFITS. (3) Obesity (BMI 30.0-34.9): Comment: Moderately obese, with a round face and narrow oropharynx, typical for obstructive sleep apnea. Because of his mental status and low level of physical activity , he is not going to be able to lose much weight. Code(s): E66.9 - Obesity, unspecified Category: Medical Plan: THE STAFF MEMBERS AT [facility], WATCH HIS DIETARY HABITS. Coding Level of Care Code Est Pt Level 3 (56784) Diagnoses Down syndrome Q90.9 CONY on CPAP G47.33; Z99.89 Obesity (BMI 30.0-34.9) E66.9
[2024-09-24 15:46] VITALS: BP 96/62; PULSE 94; O2SAT 96
== END 2024-09-24 16:13 | disposition home or self-care (01) ==
PROVIDERS: PCP Internal Medicine; Visit Provider Internal Medicine
DX: Q90.9 Down syndrome, unspecified (principal); G47.33 Obstructive sleep apnea (adult) (pediatric); Z99.89 Dependence on other enabling machines and devices; E66.9 Obesity, unspecified
CPT/HCPCS: 99213

== ENCOUNTER → 2024-09-24 15:44 | Outpatient (BNVA) | payer MEDICARE, MEDICAID, SELFPAY | PROVIDERS: PCP Internal Medicine; Visit Provider Internal Medicine | DX: G47.33 Obstructive sleep apnea (adult) (pediatric) (principal); E66.9 Obesity, unspecified; Q90.9 Down syndrome, unspecified; Z99.89 Dependence on other enabling machines and devices | CPT/HCPCS: 99212 ==

== ENCOUNTER 2024-09-26 10:33 | Outpatient (REF) | payer MEDICARE, MEDICAID, SELFPAY ==
[2024-09-26 11:32] LABS: MANUAL DIFF FLAG NO
[2024-09-26 11:34] LABS: Basophils Absolute Auto 0.1 X10*3/uL (0.0-0.2); Basophils Percent Auto 1.5 % (0-2); Eosinophils Percent Auto 0.5 % (0-4); Hematocrit 46.6 % (42.0-52.0); Hemoglobin 15.7 g/dl (14.0-18.0); Imm Gran Abs Auto 0.01 X10*3/uL (0.00-0.03); Imm Gran Pct Auto 0.2 % (0.0-0.4); Lymphocytes Absolute Auto 2.1 X10*3/uL (1.2-4.9); Lymphocytes Percent Auto 35.1 % (20-40); Mean Corpuscular HGB Conc 33.7 g/dl (31.0-36.0); Mean Corpuscular Hemoglobin 33.2 pg (27.0-33.0); Mean Corpuscular Volume 98.5 fL (80.0-98.0); Mean Platelet Volume 10.1 fL (9.4-12.4); Monocytes Absolute Auto 0.5 X10*3/uL (0.1-1.2); Monocytes Percent Auto 8.6 % (2-11); Neutrophils Absolute Auto 3.2 x10*3/uL (2.0-8.3); Neutrophils Percent Auto 54.1 % (45-73); Platelet Count 186 X10*3/uL (160-400); Red Blood Count 4.73 X10*6/uL (4.60-5.80)
[2024-09-26 12:01] LABS: Alanine Aminotransferase 29 U/L (0-40); Albumin Level 3.4 g/dL (3.5-5.0); Alkaline Phosphatase 99 U/L (39-117); Anion Gap 10 (12-20); Aspartate Amino Transferase 39 U/L (5-37); Bilirubin Total 0.6 mg/dL (0.0-1.0); Blood Urea Nitrogen 19 mg/dL (9-16); Carbon Dioxide 29 mmol/L (22-29); Chloride 104 mmol/L (96-108); Estimated Glomerular Filt Rate > 60; Glucose Random 84 mg/dL (60-115); Potassium 4.2 mmol/L (3.3-5.1); Sodium 139 mmol/L (135-145); Total Protein 7.4 g/dL (6.5-8.0)
== END 2024-09-26 10:34 | disposition home or self-care (01) ==
LOC: HO.10HDL 10:33
PROVIDERS: Visit Provider Internal Medicine
DX: G47.33 Obstructive sleep apnea (adult) (pediatric) (principal); K21.9 Gastro-esophageal reflux disease without esophagitis
CPT/HCPCS: 36415; 80053; 85025

== ENCOUNTER 2024-10-02 14:49 | Outpatient (REF) | payer MEDICARE, MEDICAID, SELFPAY ==
--- NOTE | 2024-10-03 08:15 | MHC.AU.HA3 ---
Hearing Instrument Follow-Up- Binaural Date of Visit: 10/02/24 Right Ear: Song, Model, Color, Serial Number: Joe Cartagena 1600 ITE R SN: [id number] Color: [place] Oim Architect Repair Warranty: 02/04/2025 Oim Architect Loss and Damage Warranty: 09/27/2023 [facility] Service Plan: 09/29/2021 Battery Size: Rechargeable [place]/CShell/SlimTip: Type of Wax Guard: HearClear Dispensed By: [facility] Date of Fittin09/29/2020 Left Ear: Song, Model, Color, Serial Number: Joe Cartagena 1600 ITE R SN: [id number] Color: [place] Oim Architect Repair Warranty: 09/27/2023 [employer]im Architect Loss and Damage Warranty: 09/27/2023 [facility] Service Plan: 09/29/2021 Battery Size: Rechargeable [place]/D[place]/CShell/SlimTip: Type of Wax Guard: HearClear Dispensed By: [facility] Date of Fittin09/29/2020 Follow-Up Summary: Right aid dropped off broken. Sending to Joe. Under warranty. Recommendations: Recommendations: Patient will be contacted when materials have arrived. Diagnosis Code(s): Primary Diagnosis: H90.3 Bilateral Sensorineural Hearing Loss Signature: Provider: Lisa Mantilla, [facility]
== END 2024-10-02 14:50 | disposition home or self-care (01) ==
LOC: HO.HAP 14:49
PROVIDERS: Visit Provider Internal Medicine
DX: Z13.89 Encounter for screening for other disorder (principal)

== ENCOUNTER 2024-10-10 09:44 | Outpatient (REF) | payer MEDICARE, MEDICAID, SELFPAY | END 2024-10-10 09:45 | disposition home or self-care (01) | LOC: HO.HAP 09:44 | PROVIDERS: Visit Provider Internal Medicine | DX: Z46.1 Encounter for fitting and adjustment of hearing aid (principal); H90.3 Sensorineural hearing loss, bilateral | CPT/HCPCS: 92592 ==

== ENCOUNTER 2024-11-20 11:06 | Outpatient (AMB) | payer MEDICARE, MEDICAID, SELFPAY ==
[2024-11-20 11:17] VITALS: BP 110/64; PULSE 74; O2SAT 95
--- NOTE | 2024-11-20 11:17 | MHC.OFFVIS ---
Vital Signs 11/20/24 11:17 Height 5 ft 1 in BMI Reason not done Patient refused/unable BP 110/64 Blood Pressure Location Lt brachial Position Sitting Pulse 74 Pulse Source Pulse Oximeter Pulse Oximetry (%) 95 Oxygen Delivery Method Room Air Intake Visit Reasons: Obstructive sleep apnea Intake Note: pt is here for starting bi-pap, and the machine is running dry with water in am and the plate is very warm, any suggestions. Also, do you think his restless legs are being helped.He states he feels tired and refreshed, house did notice that he is not dozing as much throughout the day Analyst Food And Beverage Required: No Allergies latex Allergy (Verified 11/20/24 11:45) Unknown Medication List - Last Reconciled 11/20/24 by Cori Palacios MD acetaminophen 650 mg PO Q6H PRN cholecalciferol (vitamin D3) 25 mcg PO DAILY CPAP (CPAP Machine/Device) As directed docusate sodium 100 mg PO BID 30 days famotidine-Ca carb-mag hydrox 10-800-165 mg (Pepcid Complete) 1 tab PO BID fluoxetine 30 mg PO QAM loratadine 1 tab PO DAILY minocycline 50 mg PO DAILY multivitamin (Daily Multi-Vitamin tablet) 1 tab PO DAILY multivitamin,ga-onoc-Kf-FA-min 27-0.4 mg (Thera-M) 1 tab PO DAILY simethicone (Gas Relief (simethicone)) 80 mg PO BEDTIME simvastatin 1 tab PO BEDTIME Do you need a note to return to daycare/school/sports/work: No HPI HPI Obstructive sleep apnea: Details: 64 years old gentleman a case of down syndrome, lives at a [facility]. 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 Has been using CPAP for long time. He was having significant residual sleep apnea in spite of using the CPAP. So recently underwent CPAP titration in the sleep lab. He required high bilevel pressure of 25/20 cm, using fullface mask. With this new setting he is doing well. He does use the CPAP throughout the night for more than 10 hours per night. He is reported. to sleep very good The nursing staff has noticed that the water in the water tank finishes, in team physician hours. I think it gets used up in about 6 hours and then he has no more water. His the polysomnogram study did show presence of periodic limb movements, but he is not complaining of any restless legs. ( I think PL mm are probably related to the use of SSRI agent Fluoxetine . 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 Review of Systems Const All systems reviewed & are unremarkable except as noted in HPI and below Eyes Reports no additional complaints ENT Reports no additional complaints Card Denies chest pain, Denies irregular heart rhythm and Denies leg edema Resp Reports no additional complaints GI Reports no additional complaints Reports no additional complaints Musc Reports abnormal gait (Slightly unsteady) and Reports deformity (Deformed ankles and feet, also has deformities of the hand fingers.) Skin/Breast Reports system reviewed and no additional complaints, except as documented Neuro Reports abnormal gait (Slightly unsteady) Psych Details: Slow, not very conversant but pleasant Physical Exam Vital Signs: Last Vital Signs Pulse 74 11/20/24 11:17 BP 110/64 11/20/24 11:17 Pulse Ox 95 11/20/24 11:17 Oxygen Delivery Method Room Air 11/20/24 11:17 Const General: comfortable, no acute distress, alert and awake Orientation/consciousness: patient oriented x3 HEENT Head: Yes normal to inspection General nose exam: No nasal polyps present and No nasal discharge present Face and sinus: Yes sinuses nontender Mouth: oropharynx normal Throat: Yes posterior oropharynx normal Eyes General: appearance normal, both eyes and all related structures Neck Neck: Yes normal visual inspection, Yes no lymphadenopathy, Yes trachea midline and Yes no JVD Thyroid: Thyroid normal Chest Chest palpation & inspection: normal inspection of the chest, normal palpation of entire chest wall and no tenderness Resp Effort & Inspection: normal respiratory effort Auscultation: clear to auscultation bilaterally, no crackles, no rhonchi and no wheezes Percussion: percussion normal Cardio Palpation: normal PMI Rate: regular rate Rhythm: regular rhythm Heart sounds: no gallops and no murmurs Peripheral pulses: Peripheral pulses 2+ throughout GI Palpation (GI): Soft to palpation, nontender, No hepatosplenomegaly present and no masses Auscultation: normal bowel sounds Back/Spine/Pelvis Thoracic/Lumbar Spine: thoracic and lumbar spine normal to inspection Skin General skin exam: no rashes or lesions noted Neuro General: patient oriented x3, No gait normal (Gait impaired he is mostly in the wheelchair) and no focal motor deficits Cranial nerves: Yes CN's II-XII intact bilaterally Extrem Other: incision clean dry and intact. [place] intact. No erythema or effusion. Calf supple nontender. Neurovascularly intact. General: Yes normal to inspection, Yes no clubbing, cyanosis or edema and Yes no calf tenderness Psych Speech and movement: Normal speech and movement present Results Reviewed Results Reviewed: Compliance report for the last 30 nights is reviewed. Used. CPAP 100% of the nights Average use it per night 9 hours 9 minutes. Pressure 25/20 cm, with fullface mask. There is some air leak noted. Residual AHI only 0.2 , which is much better than before Assessment & Plan Assessment & Plan (1) Down syndrome: Comment: Case of Down's syndrome, lives in [facility], supervised by the staff. No behavior issues, he is very cooperative and pleasant . Code(s): Q90.9 - Down syndrome, unspecified Category: Medical Plan: Discussed about the findings of compliance. Continue to use the bilevel CPAP, every night. Explained that he probably utilizes all the water with in the 1st 6 hours of usage, the humidity may be set at a higher level. If need be we can lower the level of humidification. (2) CONY on CPAP: Comment: Patient has diagnosis of severe obstructive sleep apnea. He uses CPAP very regularly, and is compliant, sleeps good. Air leak issue continues. With the new face mask of small size it should be taken care of. PATIENT HAD AIR LEAK ISSUE AND ALSO HIGH RESIDUAL AHI EVEN WITH OPTIMAL USE OF CPAP. THUS HE UNDERWENT CPAP TITRATION IN THE SLEEP LAB. NOTED ABOVE IN THE HISTORY IT TOOK BILEVEL PRESSURE OF 25/20 CM TO ALLEVIATE ALL OBSTRUCTIVE EVENTS AND O2 DESATURATIONS. HE IS DOING VERY WELL WITH THIS HIGHER PRESSURE, DOES NOT COMPLAIN OF ANY DISCOMFORT FROM THE USE OF CPAP. Code(s): G47.33 - Obstructive sleep apnea (adult) (pediatric); Z99.89 - Dependence on other enabling machines and devices Category: Medical Plan: COMMENDED FOR GOOD COMPLIANCE AND ADVISED TO CONTINUE USING THIS BILEVEL CPAP EVERY NIGHT. (3) Obesity (BMI 30.0-34.9): Comment: Moderately obese, with a round face and narrow oropharynx, typical for obstructive sleep apnea. Because of his mental status and low level of physical activity , he is not going to be able to lose much weight. Code(s): E66.9 - Obesity, unspecified Category: Medical Plan: HE IS MODERATELY OBESE BUT TO, LOSING WEIGHT IS NOT A BIG ISSUE IN HIS CASE. Coding Level of Care Code Est Pt Level 3 (13443) Diagnoses Down syndrome Q90.9 CONY on CPAP G47.33; Z99.89 Obesity (BMI 30.0-34.9) E66.9
== END 2024-11-20 11:46 | disposition home or self-care (01) ==
LOC: HO.HPS 11:07
PROVIDERS: PCP Internal Medicine; Visit Provider Internal Medicine
DX: Q90.9 Down syndrome, unspecified (principal); G47.33 Obstructive sleep apnea (adult) (pediatric); Z99.89 Dependence on other enabling machines and devices; E66.9 Obesity, unspecified
CPT/HCPCS: 99213

== ENCOUNTER → 2024-11-20 11:06 | Outpatient (BNVA) | payer MEDICARE, MEDICAID, SELFPAY | PROVIDERS: PCP Internal Medicine; Visit Provider Internal Medicine | DX: G47.33 Obstructive sleep apnea (adult) (pediatric) (principal); Q90.9 Down syndrome, unspecified; E66.9 Obesity, unspecified; Z99.89 Dependence on other enabling machines and devices | CPT/HCPCS: 99212 ==

== ENCOUNTER 2025-01-28 09:03 | Outpatient (REF) | payer MEDICARE, MEDICAID, SELFPAY ==
--- NOTE | 2025-01-28 12:32 | MHC.AU.HA3 ---
Hearing Instrument Follow-Up- Binaural Date of Visit: 01/28/25 Right Ear: Song, Model, Color, Serial Number: Jeo Cartagena 1600 ITE R SN: [id number] Color: [place] Chrome Tanning Drum Operator Repair Warranty: 02/04/2025 Chrome Tanning Drum Operator Loss and Damage Warranty: 09/27/2023 [facility] Service Plan: 09/29/2021 Battery Size: Rechargeable Lawyer Criminal/Slim Tube: [place]/Dome/CShell/SlimTip: Type of Wax Guard: HearClear Dispensed By: [facility] Date of Fittin09/29/2020 Left Ear: Song, Model, Color, Serial Number: Joe Cartagena 1600 ITE R SN: [id number] Color: [place] Chrome Tanning Drum Operator Repair Warranty: 09/27/2023 Chrome Tanning Drum Operator Loss and Damage Warranty: 09/27/2023 [facility] Service Plan: 09/29/2021 Battery Size: Rechargeable Lawyer Criminal/Slim Tube: [place]/Dome/CShell/SlimTip: Type of Wax Guard: HearClear Dispensed By: [facility] Date of Fittin09/29/2020 Follow-Up Summary: Asim is here for evaluation and WILLIAM check with [facility] member Andreian. Andreina notices he is not hearing well. Nearly occluding wax right ear, Andreina states he is being seen at PCP today so will request removal. Hearing essentially stable. Visual inspection shows occluded right wax guard. Cleaned both hearing aids (2), changed wax guards (2), replaced catrachita covers (2), 23955 x6 units. Listening check ok for right device. Left device , attempted charging, not able to return to function. Vent also cracked. Sending to [facility] [place] for repair. Once returned, Asim needs appt to have both aids programmed together to disable power on/off as Andreina suspects he is turning them off during the day without meaning to. Will call once aid arrives. Recommendations: Recommendations: Patient will be contacted when materials have arrived. Diagnosis Code(s): Primary Diagnosis: H90.3 Bilateral Sensorineural Hearing Loss Signature: Provider: Annamarie Zhou, CCC-A
== END 2025-01-28 09:04 | disposition home or self-care (01) ==
LOC: HO.SH 09:03
PROVIDERS: Visit Provider Nurse Practitioner Family
DX: Z01.118 Encounter for examination of ears and hearing with other abnormal findings (principal); H90.3 Sensorineural hearing loss, bilateral
CPT/HCPCS: 92552; 92555; 92593; 99499

== ENCOUNTER 2025-02-17 12:46 | Outpatient (REF) | payer MEDICARE, MEDICAID, SELFPAY | END 2025-02-17 12:47 | disposition home or self-care (01) | LOC: HO.HAP 12:46 | PROVIDERS: Visit Provider Nurse Practitioner Family | DX: Z46.1 Encounter for fitting and adjustment of hearing aid (principal); H90.3 Sensorineural hearing loss, bilateral | CPT/HCPCS: V5014 ==

== ENCOUNTER 2025-03-12 10:00 | Outpatient (RCR) | payer MEDICARE, MEDICAID, SELFPAY | END 2025-03-12 16:21 | disposition home or self-care (01) | LOC: HO.WCC 10:00 | PROVIDERS: Visit Provider Surgery | DX: L97.522 Non-pressure chronic ulcer of other part of left foot with fat layer exposed (principal); G56.92 Unspecified mononeuropathy of left upper limb; M21.962 Unspecified acquired deformity of left lower leg; Z79.899 Other long term (current) drug therapy | CPT/HCPCS: 11042; 99212; 99213 ==

== ENCOUNTER 2025-03-16 11:14 | Outpatient (AMB) | payer MEDICARE, MEDICAID, SELFPAY ==
--- NOTE | 2025-03-16 11:22 | A.OFFVIS_ITS ---
Vital Signs 03/16/25 11:23 Height 5 ft 1 in BMI Reason not done Patient refused/unable BP 110/62 Blood Pressure Location Lt brachial Position Sitting Pulse 63 Pulse Source Pulse Oximeter Pulse Oximetry (%) 97 Oxygen Delivery Method Room Air Intake Visit Reasons: Obstructive sleep apnea Intake Note: pt is here for follow up and states he is feeling good, using bi-pap every night Drafter Chief Design Required: No Allergies latex Allergy (Verified 03/16/25 11:40) Unknown Medication List - Last Reconciled 03/16/25 by Cori Palacios MD acetaminophen 650 mg PO Q6H PRN cholecalciferol (vitamin D3) 25 mcg PO DAILY CPAP (CPAP Machine/Device) As directed docusate sodium 100 mg PO BID 30 days famotidine-Ca carb-mag hydrox 10-800-165 mg (Pepcid Complete) 1 tab PO BID fluoxetine 30 mg PO QAM loratadine 1 tab PO DAILY minocycline 50 mg PO DAILY multivitamin (Daily Multi-Vitamin tablet) 1 tab PO DAILY multivitamin,rf-bjjo-Yq-FA-min 27-0.4 mg (Thera-M) 1 tab PO DAILY simethicone (Gas Relief (simethicone)) 80 mg PO BEDTIME simvastatin 1 tab PO BEDTIME Do you need a note to return to daycare/school/sports/work: No HPI HPI Obstructive sleep apnea: Details: This 64 years old gentleman with Down syndrome, moderately obese and 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 He is a case of severe obstructive sleep apnea, which required treatment with a bilevel pressure of 25/20 cm. He uses the BiPAP very regularly and sleeps good, on an average 9-10 hours per night. He is using with a fullface mask, and has no issues with the use of the mask or CPAP machine. There is some air leak due to slipping of the max to the side towards the morning hours. He does not have any complaint and during the daytime he does not experience sleepiness. 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 Review of Systems Const All systems reviewed & are unremarkable except as noted in HPI and below Eyes Reports no additional complaints ENT Reports no additional complaints Card Denies chest pain, Denies irregular heart rhythm and Denies leg edema Resp Reports no additional complaints GI Reports no additional complaints Reports no additional complaints Musc Reports abnormal gait (Slightly unsteady) and Reports deformity (Deformed ankles and feet, also has deformities of the hand fingers.) Skin/Breast Reports system reviewed and no additional complaints, except as documented Neuro Reports abnormal gait (Slightly unsteady) Psych Details: Slow, not very conversant but pleasant Physical Exam Const General: comfortable, no acute distress, alert and awake Orientation/consciousness: patient oriented x3 HEENT Head: Yes normal to inspection General nose exam: No nasal polyps present and No nasal discharge present Face and sinus: Yes sinuses nontender Mouth: oropharynx normal Throat: Yes posterior oropharynx normal Eyes General: appearance normal, both eyes and all related structures Neck Neck: Yes normal visual inspection, Yes no lymphadenopathy, Yes trachea midline and Yes no JVD Thyroid: Thyroid normal Chest Chest palpation & inspection: normal inspection of the chest, normal palpation of entire chest wall and no tenderness Resp Effort & Inspection: normal respiratory effort Auscultation: clear to auscultation bilaterally, no crackles, no rhonchi and no wheezes Percussion: percussion normal Cardio Palpation: normal PMI Rate: regular rate Rhythm: regular rhythm Heart sounds: no gallops and no murmurs Peripheral pulses: Peripheral pulses 2+ throughout GI Palpation (GI): Soft to palpation, nontender, No hepatosplenomegaly present and no masses Auscultation: normal bowel sounds Back/Spine/Pelvis Thoracic/Lumbar Spine: thoracic and lumbar spine normal to inspection Skin General skin exam: no rashes or lesions noted Neuro General: patient oriented x3, No gait normal (Gait impaired he is mostly in the wheelchair) and no focal motor deficits Cranial nerves: Yes CN's II-XII intact bilaterally Extrem Other: incision clean dry and intact. [place] intact. No erythema or effusion. Calf supple nontender. Neurovascularly intact. General: Yes normal to inspection, Yes no clubbing, cyanosis or edema and Yes no calf tenderness Psych Speech and movement: Normal speech and movement present Results Reviewed Results Reviewed: Compliance report is reviewed and his usage is 100% of the nights with average use it per night 9 hours 41 minutes. Pressure 25/20 cm. There is moderate air leakage maximum 114.9 L . Residual AHI only 0.7 Assessment & Plan Assessment & Plan (1) Down syndrome: Comment: Case of Down syndrome, lives in detention, supervised by the staff. No behavior issues, he is very cooperative and pleasant . Code(s): Q90.9 - Down syndrome, unspecified Category: Medical Plan: see under CONY/CPAP (2) Obesity (BMI 30.0-34.9): Comment: Moderately obese, with a round face and narrow oropharynx, typical for obstructive sleep apnea. Because of his mental status and low level of physical activity , he is not going to be able to lose much weight. Code(s): E66.9 - Obesity, unspecified Category: Medical Plan: The detention staff takes care of his diet. (3) CONY on CPAP: Comment: Patient has diagnosis of severe obstructive sleep apnea. He uses CPAP very regularly, and is compliant, sleeps good. Air leak issue continues. NOTED ABOVE IN THE HISTORY IT TOOK BILEVEL PRESSURE OF 25/20 CM TO ALLEVIATE ALL OBSTRUCTIVE EVENTS AND O2 DESATURATIONS. HE IS DOING VERY WELL WITH THIS HIGHER PRESSURE, DOES NOT COMPLAIN OF ANY DISCOMFORT FROM THE USE OF CPAP. Code(s): G47.33 - Obstructive sleep apnea (adult) (pediatric); Z99.89 - Dependence on other enabling machines and devices Category: Medical Plan: Commended for good compliance and advised to keep on using CPAP every night regularly Staff is instructed to watch his mask and tighten the straps if needed Coding Level of Care Code Est Pt Level 3 (02642) Diagnoses Down syndrome Q90.9 Obesity (BMI 30.0-34.9) E66.9 CONY on CPAP G47.33; Z99.89
[2025-03-16 11:23] VITALS: BP 110/62; PULSE 63; O2SAT 97
== END 2025-03-16 11:35 | disposition home or self-care (01) ==
LOC: HO.HPS 11:15
PROVIDERS: PCP Internal Medicine; Visit Provider Internal Medicine
DX: Q90.9 Down syndrome, unspecified (principal); E66.9 Obesity, unspecified; G47.33 Obstructive sleep apnea (adult) (pediatric); Z99.89 Dependence on other enabling machines and devices
CPT/HCPCS: 99213

== ENCOUNTER → 2025-03-16 11:14 | Outpatient (BNVA) | payer MEDICARE, MEDICAID, SELFPAY | PROVIDERS: PCP Internal Medicine; Visit Provider Internal Medicine | DX: G47.33 Obstructive sleep apnea (adult) (pediatric) (principal); Z99.89 Dependence on other enabling machines and devices; E66.9 Obesity, unspecified; Q90.9 Down syndrome, unspecified | CPT/HCPCS: 99212 ==

== ENCOUNTER 2025-06-22 10:58 | Outpatient (REF) | payer MEDICARE, MEDICAID, SELFPAY ==
--- NOTE | 2025-06-23 07:50 | MHC.AU.HA3 ---
Hearing Instrument Follow-Up- Binaural Date of Visit: 06/23/25 Right Ear: Song, Model, Color, Serial Number: Joe Cartagena 1600 ITE R SN: [id number] Color: [place] Supervisor Vendor Quality Repair Warranty: 02/04/2025 Supervisor Vendor Quality Loss and Damage Warranty: 09/27/2023 [facility] Service Plan: 09/29/2021 Battery Size: Rechargeable Type of Wax Guard: HearClear Dispensed By: [facility] Date of Fittin09/29/2020 Left Ear: Song, Model, Color, Serial Number: Joe Cartagena 1600 ITE R SN: [id number] Color: [place] Supervisor Vendor Quality Repair Warranty: 08/11/2025 Supervisor Vendor Quality Loss and Damage Warranty: 09/27/2023 [facility] Service Plan: 09/29/2021 Battery Size: Rechargeable Type of Wax Guard: HearClear Dispensed By: [facility] Date of Fittin09/29/2020 Follow-Up Summary: Both HAs, injection operator, cord, and wall plug dropped off 06/22/2025 reporting not charging. Assessed on 06/23/2025. HAs charging fine, but not working due to occluded wax guards. Also left WILLIAM vent cracked and right WILLIAM missing push button. Cleaned HAs (2). Replaced wax guards (2). Replaced microphone covers (2). [id number] x6. Cleaned vents which were also occluded with wax. Buffed left vent to be smoother where cracked. Push button disabled so will plan to continue using right WILLIAM without push button for now. If issues, arise with left vent or right missing push button, consider sending HAs for [id number] barman repair. HAs, injection operator, cord, and wall plug to front office for pickle processor. Recommendations: Hearing instrument maintenance in 6 months, or sooner if needed. Please contact our clinic with any questions or concerns. Diagnosis Code(s): Primary Diagnosis: H90.3 Bilateral Sensorineural Hearing Loss Signature: Provider: Lisa Rasmussen, [facility]
== END 2025-06-22 10:59 | disposition home or self-care (01) ==
LOC: HO.HAP 10:58
PROVIDERS: PCP Nurse Practitioner Family; Visit Provider Nurse Practitioner Family
DX: Z13.89 Encounter for screening for other disorder (principal)

== ENCOUNTER 2025-06-24 09:27 | Outpatient (REF) | payer MEDICARE, MEDICAID, SELFPAY | END 2025-06-24 09:28 | disposition home or self-care (01) | LOC: HO.HAP 09:27 | PROVIDERS: Visit Provider Internal Medicine | DX: Z46.1 Encounter for fitting and adjustment of hearing aid (principal); H90.3 Sensorineural hearing loss, bilateral | CPT/HCPCS: 92593; 99499 ==

== ENCOUNTER 2025-08-12 12:58 | Outpatient (REF) | payer MEDICARE, MEDICAID, SELFPAY | END 2025-08-12 12:59 | disposition home or self-care (01) | LOC: HO.SH 12:58 | PROVIDERS: Visit Provider Nurse Practitioner Family | DX: H90.3 Sensorineural hearing loss, bilateral (principal) | CPT/HCPCS: 92552; 92556; 92591; V5275 ==